=== PATIENT | female | born 1930 | race Caucasian/White ===

== ENCOUNTER 2017-02-01 19:37 | Inpatient (IN) | payer OTHER ==
[~2017-02-01] VITALS: Ht 165.1 cm; Wt 87.6 kg
[~2017-02-01 19:37] MED LIST: BIMA0.01 OPB; CALC500C70 PO; CPR/500 PO; GLIP2.5T11 PO; LOSA50TA6 PO; METF-384 PO; METO100T44 PO; PANT40TA PO; POLY335019 PO; PRD/25 PO; PRED-301 PO; PRED10TA PO; WARF5TAB7 PO
[2017-02-01] MEDS ORDERED: ONDANSETRON INJ 2 MG/ML 2 ML VIAL IV STA (19:58)
[2017-02-01] MEDS ORDERED: SODIUM CHLORIDE 0.9% 1000ML 2,000 ML IV STA (19:58)
[2017-02-01] MEDS ORDERED: OPTIRAY 320 IV PRN (20:15)
--- NOTE | 2017-02-01 20:22 | DIAGNOSTIC IMAGING REPORT ---
CHEST ONE VIEW PORTABLE CLINICAL HISTORY: fever cough COMPARISON STUDY: 05/04/2016 FINDINGS: Permanent bipolar cardiac pacemaker. Lungs are clear. Diaphragms are smooth. IMPRESSION: No acute process. Electronically signed by: Hiram Barrow M.D. 02/01/2017 8:20 PM Dictated Date/Time: 02/01/2017 8:20 PM
[2017-02-01 20:26] LABS: HEMATOCRIT 38.6 % (37-47); MEAN CELL VOLUME 88.7 fL (80-100); MEAN CORPUSCULAR HEMOGLOBIN 29.7 pg (25-34); MEAN CORPUSCULAR HGB CONC 33.4 g/dl (32-36); MEAN PLATELET VOLUME 10.8 fL (7.4-10.4); PLATELET COUNT 187 K/uL (130-400); RED BLOOD COUNT 4.35 M/uL (4.2-5.4); WHITE BLOOD COUNT 9.55 K/uL (4.8-10.8)
[2017-02-01 20:36] LABS: ISTAT CREATININE 1.1 mg/dl (0.6-1.3); ISTAT HEMOGLOBIN 13.6 g/dl (12.0-16.0); ISTAT IONIZED CALCIUM 1.08 mmol/l (1.12-1.32)
[2017-02-01 20:36] LABS: PROTHROMBIN TIME (PATIENT) 33.6 SECONDS (9.0-12.0)
--- NOTE | 2017-02-01 20:44 | DIAGNOSTIC IMAGING REPORT ---
ABDOMEN AND PELVIS CT WITH IV CONTRAST CT DOSE: 668.25 mGy.cm HISTORY: vomiting w/ abd pain fever and tachy TECHNIQUE: Multiaxial CT images of the abdomen and pelvis were performed following the use of intravenous contrast. COMPARISON STUDY: 04/08/2016 FINDINGS: Lung bases are clear. Stable postoperative changes to the right hepatic lobe as well as findings of a prior cholecystectomy. These findings are unchanged from the prior exam. Cortical scarring of the peripheral aspect of the residual right hepatic lobe. This is also unchanged. Kidneys enhance uniformly. Several microcysts are present. Small cyst of the spleen is stable. Pancreas is uniform throughout. Ventral hernias are again noted. These are unchanged in appearance. Bowel pattern overall is nonobstructive. Bladder is midline. There is no free fluid within the pelvic cul-de-sac. Scattered colonic diverticuli are present with no evidence for diverticulitis. Postoperative bowel changes are within the anterior central pelvis is stable. This is a nonobstructive finding and again is stable from the prior exam. There is no evidence for significant perirectal para-aortic abdominal pelvic or inguinal brady pathology. There are moderate degenerative changes of the hips as well as lumbar spine. IMPRESSION: Chronic and stable postoperative changes throughout the abdomen and pelvis. No acute process is identified. Electronically signed by: Hiram Barrow M.D. 02/01/2017 8:43 PM Dictated Date/Time: 02/01/2017 8:39 PM
[2017-02-01 20:47] LABS: BUN/CREATININE RATIO 14.7 (10-20); CALCIUM 9.1 mg/dl (8.5-10.1); CREATININE 1.3 mg/dl (0.60-1.20); MAGNESIUM 1.6 mg/dl (1.8-2.4)
[2017-02-01 20:49] LABS: BASO % 0.1 %; BASO ABS # 0.01 K/uL (0-0.2); COMPLETE YES; EOS % 0.5 %; IG% 0.2 %; LYMPH % 22.2 %; LYMPH ABS # 2.12 K/uL (1.2-3.4); MONO % 6.3 %; NEUT % 70.7 %
[2017-02-01] MEDS ORDERED: PIPERACILLIN/TAZOBACTAM 4.5 GM/100ML D5W IV STA (20:55)
[2017-02-01 21:11] LABS: CKMB/CK RATIO 3.5 (0-3.0)
[2017-02-01] MEDS ORDERED: CIPR1TAB10 PO (21:15)
[2017-02-01] MEDS ORDERED: TMPOPS15 OPB (21:15)
[2017-02-01] MEDS ORDERED: WARF5TAB90 PO (21:27)
[2017-02-01 21:39] LABS: URINE APPEARANCE CLEAR (CLEAR); URINE COLOR DK YELLOW; URINE EPITHELIAL CELL AUTO >30 /lpf (0-5); URINE NITRITE NEG (NEG); URINE SPECIFIC GRAVITY > 1.045 (1.000-1.030); UROBILINOGEN NEG (NEG); ZZURINE CULT IF INDIC CATH NO
[2017-02-01] MEDS ORDERED: ONDANSETRON INJ 2 MG/ML 2 ML VIAL IV PRN (21:45)
[2017-02-01 21:49] LABS: MANUAL MICROSCOPIC REQUIRED? NO; REVIEW REQ? YES; URINE BILIRUBIN NEG (NEG)
[2017-02-01 21:53] LABS: URINE PATH CASTS 1-5 GRANULAR CASTS /lpf (0)
[2017-02-01] MEDS ORDERED: GLUCOSE 10 TABS/TUBE PO PRN (22:00)
[2017-02-01] MEDS ORDERED: SODIUM CHLORIDE 0.9% 1000ML 1,000 ML IV SCH (22:00)
[2017-02-01] MEDS ORDERED: GLUCOSE 40% GEL 15 GM TUBE PO PRN (22:00)
[2017-02-01] MEDS ORDERED: GLUCAGON FOR INJ 1 MG VIAL SQ PRN (22:00)
[2017-02-01] MEDS ORDERED: DEXTROSE 50% 50 ML SYR IV PRN (22:00)
[2017-02-01] MEDS ORDERED: PIPERACILL/TAZOBAC CONSULT ACTIVE PRN (22:01)
--- NOTE | 2017-02-01 22:26 | History and Physical ---
History & Physical Date & Time of Service: February 01, 2017 ~ 21:30 Chief Complaint: Fevers, Vomiting Primary Care Physician: Brandee Forman M.D. History of Present Illness 86 year old female who presents to the ER with fever and vomiting. Patient has history of sclerosing cholangitis and recurrent cholangitis. Reports that when she develops a fever she will start a course of Cipro. Patient reports starting to get sick 4 days ago and she reports she started taking Cipro at that time. She reports typically she will improve once she starts the antibiotic however she has not. She reports fevers despite the use of Tylenol. The highest fever she had was 102. She reports chills and rigors. She reports a poor appetite and when she does eat she felt nauseous. She reports one episode of vomiting. She denies hematemesis or coffee ground emesis. She reports mild LLQ pain. No diarrhea. She reports generalized weakness. She denies cough and sputum production. No chest pain, shortness of breath, lightheadedness, dizziness, diaphoresis, or syncopal event. She denies dysuria or frequency but feels as though her urine output has been down. In the ER, patient was tachycardic in the 120s. She had a low grade fever of 37.6. POC Lactic acid 3.07. Creat 1.3 ( baseline ~ 0.9). CT abd/pelvis unremarkable. CXR clear. U/A pending. She was given IVF and Zosyn. 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 Status: Chronic (2) Chronic a-fib Status: Chronic (3) DM type 2 (diabetes mellitus, type 2) Status: Chronic (4) Hepatic fibrosis Status: Chronic (5) History of ITP Status: Chronic (6) HLD (hyperlipidemia) Status: Chronic (7) HTN (hypertension) Status: Chronic (8) Neuropathy Status: Chronic (9) Pacemaker Status: Chronic (10) Recurrent cholangitis Status: Chronic (11) Sclerosing cholangitis Status: Chronic Surgical Problems: (1) History of hysterectomy Status: Chronic (2) S/P cholecystectomy Status: Chronic Family History non contributory due to patient's advanced age Social History Smoking Status: Never Smoker Alcohol Use: none Marital Status: Housing status: lives with significant other Immunizations History of Influenza Vaccine: Yes Influenza Vaccine Date: Jul 03, 2016 History of Pneumococcal: Yes Pneumococcal Date: Oct 16, 2014 Multi-Drug Resistant Organisms History of MDRO: No Allergies Coded Allergies: Adhesives (Verified Adverse Reaction, Unknown, "it festers and gets sore" , 06/19/16) Bacitracin (Verified Adverse Reaction, Unknown, states "if I use it it won 't heal", 06/19/16) Lisinopril (Verified Adverse Reaction, Unknown, Cough, 06/19/16) Reported by PT. Neomycin (Verified Adverse Reaction, Unknown, states "if I use it it won' t heal", 06/19/16) Polymyxin B (Verified Adverse Reaction, Unknown, states "if I use it it won't heal", 06/26/16) Home Medications Scheduled Calcium/Vitamin D (Os-Andre 500 Plus D), 1 TAB PO DAILY Ciprofloxacin Hcl (Cipro), 500 MG PO BID Glipizide (Glipizide Er), 1 DOSE PO DAILY Losartan Potassium (Cozaar), 50 MG PO QAM Metformin Hcl (Glucophage), 1,000 MG PO BID Metoprolol Succ (Toprol Xl) (Toprol-Xl ), 50 MG PO QPM Pantoprazole (Protonix), 40 MG PO DAILY Polyethylene Glycol 3350 (Miralax), 17 GM PO QAM Timolol Maleate (Timolol 0.5% Oph Soln 15 Ml), 1 DROP OPB BID Warfarin Sod (Jantoven), 7.5 MG PO MWF Warfarin Sodium (Coumadin), 5 MG PO 4XWK Review of Systems ROS per HPI, all other systems reviewed and negative Physical Exam Vital Signs Date Time Temp Pulse Resp B/P Pulse Ox O2 Delivery O2 Flow Rate FiO2 02/01/17 19:40 37.6 118 22 138/69 95 Room Air General Appearance: no apparent distress Head: normocephalic Eyes: normal inspection ENT: hearing grossly normal, + pertinent finding (dry mucous membranes) Neck: supple, no JVD Respiratory/Chest: lungs clear, normal breath sounds, no respiratory distress Cardiovascular: + tachycardia (regular rhythm), + pertinent finding (+1 edema BLLE) Abdomen/GI: normal bowel sounds, soft, + tenderness (LLQ, mild) Back: no CVA tenderness Extremities/Musculoskelatal: normal inspection, no calf tenderness Neurologic/Psych: no motor/sensory deficits, alert, normal mood/affect, oriented x 3 Skin: normal color, warm/dry Diagnostics Laboratory Results Results Past 24 Hours Test 02/01/17 20:10 02/01/17 20:19 02/01/17 20:23 02/01/17 21:15 Range/Units White Blood Count 9.55 4.8-10.8 K/uL Red Blood Count 4.35 4.2-5.4 M/uL Hemoglobin 12.9 12.0-16.0 g/dL Hematocrit 38.6 37-47 % Mean Corpuscular Volume 88.7 80-100 fL Mean Corpuscular Hemoglobin 29.7 25-34 pg Mean Corpuscular Hemoglobin Concent 33.4 32-36 g/dl Platelet Count 187 130-400 K/uL Mean Platelet Volume 10.8 7.4-10.4 fL Neutrophils (%) (Auto) 70.7 % Lymphocytes (%) (Auto) 22.2 % Monocytes (%) (Auto) 6.3 % Eosinophils (%) (Auto) 0.5 % Basophils (%) (Auto) 0.1 % Neutrophils # (Auto) 6.75 1.4-6.5 K/uL Lymphocytes # (Auto) 2.12 1.2-3.4 K/uL Monocytes # (Auto) 0.60 0.11-0.59 K/uL Eosinophils # (Auto) 0.05 0-0.5 K/uL Basophils # (Auto) 0.01 0-0.2 K/uL RDW Standard Deviation 45.0 36.4-46.3 fL RDW Coefficient of Variation 13.8 11.5-14.5 % Immature Granulocyte % (Auto) 0.2 % Immature Granulocyte # (Auto) 0.02 0.00-0.02 K/uL Prothrombin Time 33.6 9.0-12.0 SECONDS Prothromb Time International Ratio 3.0 0.9-1.1 Sodium Level 137 136-145 mmol/L Potassium Level 4.0 3.5-5.1 mmol/L Chloride Level 102 98-107 mmol/L Carbon Dioxide Level 24 21-32 mmol/L Anion Gap 11.0 19.0 16-25 mmol/L Blood Urea Nitrogen 19 7-18 mg/dl Creatinine 1.30 0.60-1.20 mg/dl Est Creatinine Clear Calc Drug Dose 34.2 ml/min Estimated GFR () 43.3 Estimated GFR (Non- 37.4 BUN/Creatinine Ratio 14.7 10-20 Random Glucose 166 70-99 mg/dl Calcium Level 9.1 8.5-10.1 mg/dl Magnesium Level 1.6 1.8-2.4 mg/dl Total Bilirubin 0.6 0.2-1 mg/dl Direct Bilirubin 0.2 0-0.2 mg/dl Aspartate Amino Transf (AST/SGOT) 24 15-37 U/L Alanine Aminotransferase (ALT/SGPT) 28 12-78 U/L Alkaline Phosphatase 81 45-117 U/L Total Creatine Kinase 51 26-192 U/L Creatine Kinase MB 1.8 0.5-3.6 ng/ml Creatine Kinase MB Ratio 3.5 0-3.0 Troponin I 0.896 0-0.045 ng/ml Total Protein 7.7 6.4-8.2 gm/dl Albumin 3.5 3.4-5.0 gm/dl Bedside Lactic Acid Venous 3.07 0.90-1.70 mmol/L Bedside Hemoglobin 13.6 12.0-16.0 g/dl Bedside Hematocrit 40 37-47 % Bedside Sodium 136 135-144 mEq/L Bedside Potassium 4.0 3.3-5.0 mEq/L Bedside Chloride 100 101-112 mEq/L Bedside Total CO2 22 24-31 mEq/l Bedside Blood Urea Nitrogen 19 7-18 mg/dl Bedside Creatinine 1.1 0.6-1.3 mg/dl Bedside Glucose (other) 171 70-99 mg/dl Bedside Ionized Calcium (Jessie) 1.08 1.12-1.32 mmol/l Urine Color DK YELLOW Urine Appearance CLEAR CLEAR Urine pH 5.0 4.5-7.5 Urine Specific [place] > 1.045 1.000-1.030 Urine Protein 1+ NEG Urine Glucose (UA) NEG NEG Urine Ketones 1+ NEG Urine Occult Blood TRACE NEG Urine Nitrite NEG NEG Urine Bilirubin NEG NEG Urine Urobilinogen NEG NEG Urine Leukocyte Esterase NEG NEG Urine WBC (Auto) 1-5 0-5 /hpf Urine RBC (Auto) 0-4 0-4 /hpf Urine Hyaline Casts (Auto) 5-10 0-5 /lpf Urine Epithelial Cells (Auto) >30 0-5 /lpf Urine Bacteria (Auto) NEG NEG Urine Renal Epithelial Cells 0-5 0-5 /lpf Urine Pathogenic Casts 1-5 GRANULAR CASTS 0 /lpf Microbiology Results 02/01/17 Blood Culture, Received Pending 02/01/17 Blood Culture, Received Pending Diagnostic Radiology CXR IMPRESSION: No acute process. CT ABD/PELVIS IMPRESSION: Chronic and stable postoperative changes throughout the abdomen and pelvis. No acute process is identified. Impression Assessment and Plan PROBABLE SEPSIS - admit to tele - patient presenting with fever, nausea, vomiting, and generalized weakness; hx of recurrent cholangitis and will start taking Cipro when she develops a fever - started taking on 01/29 - on presentation - tachycardic, low grade fever, lactic acidosis (POC 3.07); BP stable - potential sources - UTI, cholangitis (however noted normal CT abd/pelvis and normal LFTs) - CT abd/pelvis in ER negative for acute findings; CXR clear; U/A does not highly suggest UTI however ? partially treated infection with Cipro - s/p Zosyn in ED, will continue with and adjust per culture results (noted urine culture from 2013 - E. Coli resistant to trimet/sulfa, ampicillin, gentamicin, tobramycin, and fluoroquinolones; intermediate to amp/sul) - IVF, follow up lactic acid - urine and blood cultures WEST - likely prerenal due to poor PO intake and GI loss from vomiting - baseline creat ~ 0.9, up to 1.3 today - IVF, hold ARB ELEVATED TROPONIN - likely demand ischemia from tachycardia - no reports of chest pain, EKG does not show any acute ST changes - continue to cycle enzymes - consider resting echo ATRIAL FIBRILLATION, HX PACEMAKER - rate uncontrolled likely due to dehydration / sepsis - continue metoprolol - on Coumadin, INR 3.0 - will hold Coumadin tonight and check INRs daily and dose Coumadin accordingly HTN - BP stable - continue metoprolol, holding losartan due to WEST DM - hgb a1c 6.5 08/2016 - hold oral agents and utilize SSI while hospitalized DVT PROPHYLAXIS - on Coumadin with therapeutic INR CODE STATUS - Patient is a full code as per my discussion with her. DISPO - In my clinical judgment this beneficiary meets acute admission criteria, established by [facility], that includes being hospitalized through two midnights. VTE Prophylaxis VTE Risk Assessment Done? Y/N: Yes Risk Level: Moderate Given or contraindicated: Warfarin (Coumadin) Note ATTENDING ADDENDUM Record reviewed. Patient interviewed and examined. Care coordinated with SUSANA Medellin. Please refer to her documentation for patient's history. Briefly, 86 YO female with history of recurrent cholangitis. Presented to ED with fever, malaise, nausea, vomiting. EXAM: General- no acute distress VS- as noted HEENT- anicteric Neck- no JVD Lungs- clear Heart- RRR, II/ systolic murmur at base Abdomen- + BS, soft, nontender Extremities- no pretibial edema or calf tenderness Neuro- alert, oriented DATA: WBC 9550. Lactate 3.07. BUN 19, creatinine 1.3. UA- pos for hyaline and granular casts, neg for nitrites, leuk esterase, bacteria Other lab studies as noted. CXR- no acute process CT abdomen + pelvis- s/p cholecystectomy, no acute process EKG performed at 19:[address] at 125 / minute, LBBB. ASSESSMENT AND PLAN: Meets SIRS criteria per 2001 definition and current CMS guidelines. Most likely source = recurrent cholangitis. Started ciprofloxacin a few days prior to admission per her routine. Tachycardic, but BP's OK. Serum lactate elevated at 3.07. Blood cultures obtained in ED. Received IV fluids. Received piperacillin / tazobactam which will be continued. Check repeat lactate. Consult GI re: suspected recurrent cholangitis. Serum troponin elevated. Total CPK and CPK-MB normal. No chest pain. EKG shows ST, LBBB. Suspect either nonspecific elevation due to sepsis or demand ischemia. Follow. INR borderline high- probably due to acute illness, decreased PO intake, antibiotics. Follow and titrate warfarin. Please refer to NATALIA Garrett's documentation for discussion of other issues. Flex Jacques MD .
--- NOTE | 2017-02-01 22:43 | EMERGENCY ROOM VISIT NOTE ---
History Report prepared by Dorina: Jenny Damian Under the Supervision of: Dr. Mayo Jones D.O. First contact with patient: 19:51 Chief Complaint: VOMITING Stated Complaint: HOT/COLD, VOMITING, COLOR OFF History of Present Illness The patient is an 86 year old female who presents to the Emergency Room with complaints of persistent vomiting starting 3 days ago. She is able to drink water, but vomits when she tries to eat food. She also reports fever since then. Her temperature has been around 102. Her fever improves with Tylenol. She had some right sided abdominal pain yesterday which resolved. She has some rhinorrhea which is not new. She denies any cough, sore throat, or dysuria. Her last bowel movement was earlier today. She had 3 bowel movements today. She denies any open wounds or sores. Her beautician told her that she appeared jaundiced. She has had a cholecystectomy. She still has her spleen and appendix. She has a history of A fib and is on Coumadin. She notes that she took antibiotics when her symptoms started. She has taken a total of 3 days worth of antibiotics. Source of History: patient Onset: 3 days ago Position: other (global) Quality: other (vomiting) Timing: other (persistent) Modifying Factors (Worsening): eating Associated Symptoms: + abdominal pain, + fevers, No cough, No sorethroat, No urinary symptoms Note: Pt reports rhinorrhea. Review of Systems See HPI for pertinent positives & negatives. A total of 10 systems reviewed and were otherwise negative. 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 Surgical Problems: (1) History of hysterectomy (2) S/P cholecystectomy Family History FH: diabetes mellitus FH: heart disease Social History Smoking Status: Never Smoker Alcohol Use: none Drug Use: none Marital Status: Housing Status: lives with family Occupation Status: retired Current/Historical Medications Scheduled Calcium/Vitamin D (Os-Andre 500 Plus D), 1 TAB PO DAILY Ciprofloxacin Hcl (Cipro), 500 MG PO BID Glipizide (Glipizide Er), 1 DOSE PO DAILY Losartan Potassium (Cozaar), 50 MG PO QAM Metformin Hcl (Glucophage), 1,000 MG PO BID Metoprolol Succ (Toprol Xl) (Toprol-Xl ), 50 MG PO QPM Pantoprazole (Protonix), 40 MG PO DAILY Polyethylene Glycol 3350 (Miralax), 17 GM PO QAM Timolol Maleate (Timolol 0.5% Oph Soln 15 Ml), 1 DROP OPB BID Warfarin Sod (Jantoven), 7.5 MG PO MWF Warfarin Sodium (Coumadin), 5 MG PO 4XWK Allergies Coded Allergies: Adhesives (Verified Adverse Reaction, Unknown, "it festers and gets sore" , 06/19/16) Bacitracin (Verified Adverse Reaction, Unknown, states "if I use it it won 't heal", 06/19/16) Lisinopril (Verified Adverse Reaction, Unknown, Cough, 06/19/16) Reported by PT. Neomycin (Verified Adverse Reaction, Unknown, states "if I use it it won' t heal", 06/19/16) Polymyxin B (Verified Adverse Reaction, Unknown, states "if I use it it won't heal", 06/26/16) Physical Exam Vital Signs Date Time Temp Pulse Resp B/P Pulse Ox O2 Delivery O2 Flow Rate FiO2 02/01/17 19:40 37.6 118 22 138/69 95 Room Air Physical Exam GENERAL: sitting up in bed, disheveled, no acute distress EYE EXAM: normal conjunctiva OROPHARYNX: no exudate, no erythema, lips, buccal mucosa, and tongue normal and mucous membranes are moist NECK: supple, no nuchal rigidity, no adenopathy, non-tender CHEST: pacemaker located in the left chest wall LUNGS: Clear to auscultation. Normal chest wall mechanics HEART: tachycardic, systolic ejection murmur ABDOMEN: abdomen soft, non-tender, normo-active bowel sounds, no masses, no rebound or guarding. BACK: Back is symmetrical on inspection and there is no deformity, no midline tenderness, no CVA tenderness. SKIN: petechiae located on the abdomen UPPER EXTREMITIES: upper extremities are grossly normal. LOWER EXTREMITIES: No pitting edema. NEURO EXAM: Normal sensorium, cranial nerves II-XII grossly intact, normal speech, no gross weakness of arms, no gross weakness of legs. Medical Decision & Procedures ER Provider Diagnostic Interpretation: Xray results as stated below per my and the radiologist's interpretation. Radiology results as stated below per my review and the radiologist's interpretation: CHEST ONE VIEW PORTABLE CLINICAL HISTORY: fever cough COMPARISON STUDY: 05/04/2016 FINDINGS: Permanent bipolar cardiac pacemaker. Lungs are clear. Diaphragms are smooth. IMPRESSION: No acute process. Electronically signed by: Hiram Barrow M.D. 02/01/2017 8:20 PM Dictated Date/Time: 02/01/2017 8:20 PM ABDOMEN AND PELVIS CT WITH IV CONTRAST CT DOSE: 668.25 mGy.cm HISTORY: vomiting w/ abd pain fever and tachy TECHNIQUE: Multiaxial CT images of the abdomen and pelvis were performed following the use of intravenous contrast. COMPARISON STUDY: 04/08/2016 FINDINGS: Lung bases are clear. Stable postoperative changes to the right hepatic lobe as well as findings of a prior cholecystectomy. These findings are unchanged from the prior exam. Cortical scarring of the peripheral aspect of the residual right hepatic lobe. This is also unchanged. Kidneys enhance uniformly. Several microcysts are present. Small cyst of the spleen is stable. Pancreas is uniform throughout. Ventral hernias are again noted. These are unchanged in appearance. Bowel pattern overall is nonobstructive. Bladder is midline. There is no free fluid within the pelvic cul-de-sac. Scattered colonic diverticuli are present with no evidence for diverticulitis. Postoperative bowel changes are within the anterior central pelvis is stable. This is a nonobstructive finding and again is stable from the prior exam. There is no evidence for significant perirectal para-aortic abdominal pelvic or inguinal brady pathology. There are moderate degenerative changes of the hips as well as lumbar spine. IMPRESSION: Chronic and stable postoperative changes throughout the abdomen and pelvis. No acute process is identified. Electronically signed by: Hiram Barrow M.D. 02/01/2017 8:43 PM Dictated Date/Time: 02/01/2017 8:39 PM Laboratory Results 02/01/17 20:10 Red Blood Count 4.35, Mean Corpuscular Volume 88.7, Mean Corpuscular Hemoglobin 29.7, Mean Corpuscular Hemoglobin Concent 33.4, Mean Platelet Volume 10.8, Neutrophils (%) (Auto) 70.7, Lymphocytes (%) (Auto) 22.2, Monocytes (%) (Auto) 6.3, Eosinophils (%) (Auto) 0.5, Basophils (%) (Auto) 0.1, Neutrophils # (Auto) 6.75, Lymphocytes # (Auto) 2.12, Monocytes # (Auto) 0.60, Eosinophils # (Auto) 0.05, Basophils # (Auto) 0.01 02/01/17 20:10 Test 02/01/17 20:10 02/01/17 20:19 02/01/17 20:23 02/01/17 21:15 White Blood Count 9.55 K/uL (4.8-10.8) Red Blood Count 4.35 M/uL (4.2-5.4) Hemoglobin 12.9 g/dL (12.0-16.0) Hematocrit 38.6 % (37-47) Mean Corpuscular Volume 88.7 fL (80-100) Mean Corpuscular Hemoglobin 29.7 pg (25-34) Mean Corpuscular Hemoglobin Concent 33.4 g/dl (32-36) Platelet Count 187 K/uL (130-400) Mean Platelet Volume 10.8 fL (7.4-10.4) Neutrophils (%) (Auto) 70.7 % Lymphocytes (%) (Auto) 22.2 % Monocytes (%) (Auto) 6.3 % Eosinophils (%) (Auto) 0.5 % Basophils (%) (Auto) 0.1 % Neutrophils # (Auto) 6.75 K/uL (1.4-6.5) Lymphocytes # (Auto) 2.12 K/uL (1.2-3.4) Monocytes # (Auto) 0.60 K/uL (0.11-0.59) Eosinophils # (Auto) 0.05 K/uL (0-0.5) Basophils # (Auto) 0.01 K/uL (0-0.2) RDW Standard Deviation 45.0 fL (36.4-46.3) RDW Coefficient of Variation 13.8 % (11.5-14.5) Immature Granulocyte % (Auto) 0.2 % Immature Granulocyte # (Auto) 0.02 K/uL (0.00-0.02) Prothrombin Time 33.6 SECONDS (9.0-12.0) Prothromb Time International Ratio 3.0 (0.9-1.1) Est Creatinine Clear Calc Drug Dose 34.2 ml/min Estimated GFR () 43.3 Estimated GFR (Non- 37.4 BUN/Creatinine Ratio 14.7 (10-20) Calcium Level 9.1 mg/dl (8.5-10.1) Magnesium Level 1.6 mg/dl (1.8-2.4) Total Bilirubin 0.6 mg/dl (0.2-1) Direct Bilirubin 0.2 mg/dl (0-0.2) Aspartate Amino Transf (AST/SGOT) 24 U/L (15-37) Alanine Aminotransferase (ALT/SGPT) 28 U/L (12-78) Alkaline Phosphatase 81 U/L (45-117) Total Creatine Kinase 51 U/L (26-192) Creatine Kinase MB 1.8 ng/ml (0.5-3.6) Creatine Kinase MB Ratio 3.5 (0-3.0) Troponin I 0.896 ng/ml (0-0.045) Total Protein 7.7 gm/dl (6.4-8.2) Albumin 3.5 gm/dl (3.4-5.0) Bedside Lactic Acid Venous 3.07 mmol/L (0.90-1.70) Bedside Hemoglobin 13.6 g/dl (12.0-16.0) Bedside Hematocrit 40 % (37-47) Bedside Sodium 136 mEq/L (135-144) Bedside Potassium 4.0 mEq/L (3.3-5.0) Bedside Chloride 100 mEq/L (101-112) Bedside Total CO2 22 mEq/l (24-31) Anion Gap 19.0 mmol/L (16-25) Bedside Blood Urea Nitrogen 19 mg/dl (7-18) Bedside Creatinine 1.1 mg/dl (0.6-1.3) Bedside Glucose (other) 171 mg/dl (70-99) Bedside Ionized Calcium (Jessie) 1.08 mmol/l (1.12-1.32) Urine Color DK YELLOW Urine Appearance CLEAR (CLEAR) Urine pH 5.0 (4.5-7.5) Urine Specific [place] > 1.045 (1.000-1.030) Urine Protein 1+ (NEG) Urine Glucose (UA) NEG (NEG) Urine Ketones 1+ (NEG) Urine Occult Blood TRACE (NEG) Urine Nitrite NEG (NEG) Urine Bilirubin NEG (NEG) Urine Urobilinogen NEG (NEG) Urine Leukocyte Esterase NEG (NEG) Urine WBC (Auto) 1-5 /hpf (0-5) Urine RBC (Auto) 0-4 /hpf (0-4) Urine Hyaline Casts (Auto) 5-10 /lpf (0-5) Urine Epithelial Cells (Auto) >30 /lpf (0-5) Urine Bacteria (Auto) NEG (NEG) Urine Renal Epithelial Cells 0-5 /lpf (0-5) Urine Pathogenic Casts 1-5 GRANULAR CASTS /lpf (0) Laboratory results per my review. Medications Administered Medications (Trade) Dose Ordered Sig/Anjana Route Start Time Stop Time Status Last Admin Dose Admin Ondansetron HCl 4 mg 4 mg NOW STAT IV 02/01/17 19:58 02/01/17 20:00 DC 02/01/17 20:48 4 MG Sodium Chloride (Nss 1000ml) 2,000 ml @ 999 mls/hr Q2H1M STAT IV 02/01/17 19:58 02/01/17 21:58 DC 02/01/17 20:47 999 MLS/HR Piperacillin Sod/ Tazobactam Sod (Zosyn Iv) 4.5 gm NOW STAT IV 02/01/17 20:55 02/01/17 20:56 DC 02/01/17 20:55 4.5 GM ECG Indication: vomiting Rate (beats per minute): 125 Rhythm: sinus tachycardia Findings: LBBB, other (normal axis) Comparison ECG Date: 04-May-2016 Change: There is now a normal axis and is not paced. ED Course ED COURSE: Vital signs were reviewed and showed tachycardia. The patients medical record was reviewed The above diagnostic studies were performed and reviewed. ED treatments and interventions as stated above. 1954: The patient was evaluated in room B11B. A complete history and physical examination was performed. 1957: NSS 2000 ml @ 999 mls/hr IV, Zofran Inj 4 mg IV. 2054: Zosyn Iv 4.5 gm IV. 2106: I reviewed the patient's case with Dr. Huang, [facility] hospitalist. He will evaluate the patient for further management. 2107: Upon reevaluation, the patient is resting comfortably.I discussed my findings with the patient and she understands and agrees with the treatment plan. Based on the patients age, coexisting illnesses, exam and lab findings the decision to treat as an inpatient was made. The patient remained stable while under my care. The patient will be evaluated for further management. Medical Decision Differential diagnoses includes but is not limited to gastritis, peptic ulcer disease, GERD, gallbladder disease, pancreatitis, small bowel obstruction, acute coronary syndrome, pericarditis, ischemic bowel, irritable bowel disease, irritable bowel syndrome, appendicitis, diverticulitis, malignancy, hernia, urinary tract infection, torsion, perforation, trauma, infectious. Patient is an 86-year-old female who presents the ER febrile and tachycardic with a heart rate in the 130s. Patient has been taking antibiotics for the past 3 days. Labs were obtained and show no significant leukocytosis or anemia. BMP along with LFTs and bilirubin were normal. Magnesium was slightly low at 1.6. Troponin was elevated at 0.89. Lactic acid was elevated at 3. Her only complaints upon presentation is fevers and weakness. UA was negative. Chest x-ray was unremarkable. INR was therapeutic at 3. CT of the abdomen and pelvis shows no acute pathology. I do question whether the patient has a partially treated infection at this time. I did give her a dose of Zosyn. I do favor the elevated troponin is likely rate dependent and demand ischemia. I updated the family in regards these findings. Patient was given 2 L normal saline. Patient was admitted to internal medicine with SIRS, lactic acidosis and demand ischemia. Consults Time Called: 2102 Consulting Physician: Dr. Huang [facility] hospitalist Returned Call: 2106 I reviewed the patient's case with him. He will evaluate the patient for further management. Impression Primary Impression: SIRS (systemic inflammatory response syndrome) Additional Impressions: Tachycardia Lactic acidosis Elevated troponin Scribe Attestation The scribe's documentation has been prepared under my direction and personally reviewed by me in its entirety. I confirm that the note above accurately reflects all work, treatment, procedures, and medical decision making performed by me. Departure Information Dispostion Being Evaluated By Hospitalist Referrals Brandee Forman M.D. (PCP) Patient Instructions My [facility] Problem Qualifiers
[2017-02-01 23:00] VITALS: BP 137/70; PULSE 116; TEMP 38.3; O2SAT 93; BMI 31.4
[2017-02-01] MEDS: ACETAMINOPHEN 325 MG TAB PO PRN (23:41)
[2017-02-02] VITALS (16 sets, daily range): BP systolic 93–140; BP diastolic 48–94; PULSE 77–151; TEMP 36.6–38.5; O2SAT 92–99; Ht 165.1 cm; Wt 87.6 kg
[2017-02-02] MEDS: PIPERACILL/TAZOBAC IV 3.375 GM in DEXTROSE 5% 100ML IV SCH ×3 (02:00→16:26)
[2017-02-02] MEDS: ACETAMINOPHEN 325 MG TAB PO PRN ×2 (03:51→19:17)
[2017-02-02] MEDS ORDERED: DAPTOmycin IV 0 MG in SODIUM CHLORIDE 0.9% 50ML 50 ML IV STA (04:00)
[2017-02-02] MEDS ORDERED: SODIUM CHLORIDE 0.9% 1000ML 1,000 ML IV SCH (04:15)
[2017-02-02 04:51] LABS: INR 2.7 (0.9-1.1); PROTHROMBIN TIME (PATIENT) 30.4 SECONDS (9.0-12.0)
[2017-02-02 04:54] LABS: HEMATOCRIT 33.9 % (37-47); MEAN CELL VOLUME 88.3 fL (80-100); MEAN CORPUSCULAR HEMOGLOBIN 29.9 pg (25-34); MEAN CORPUSCULAR HGB CONC 33.9 g/dl (32-36); MEAN PLATELET VOLUME 10.5 fL (7.4-10.4); PLATELET COUNT 125 K/uL (130-400); RED BLOOD COUNT 3.84 M/uL (4.2-5.4); WHITE BLOOD COUNT 3.81 K/uL (4.8-10.8)
[2017-02-02] MEDS ORDERED: DAPTOmycin IV 500 MG in SODIUM CHLORIDE 0.9% 50ML 50 ML IV SCH (05:00)
[2017-02-02 05:07] LABS: BUN/CREATININE RATIO 16.3 (10-20); CALCIUM 7.9 mg/dl (8.5-10.1); CREATININE 0.99 mg/dl (0.60-1.20); POTASSIUM 3.5 mmol/L (3.5-5.1)
[2017-02-02 05:14] LABS: ALB/GLOB RATIO 0.8 (0.9-2)
[2017-02-02 06:10] LABS: ESTIMATED AVERAGE GLUCOSE 120 mg/dl; HA1C FLAG Normal (Normal)
[2017-02-02] MEDS: LACTATED RINGER'S 1000ML 1,000 ML IV SCH ×2 (06:42→16:26)
[2017-02-02] MEDS: INSULIN ASPART 100 UNITS/ML 3 ML PEN SC SCH ×4 (07:00→20:15)
[2017-02-02] MEDS: CALCIUM 600MG + VIT D 400 IU TAB PO SCH (08:03)
[2017-02-02] MEDS: PANTOprazole SOD 40 MG TAB PO SCH (08:03)
[2017-02-02] MEDS: POLYETHYLENE (MIRALAX) 17 GM PACK PO SCH (08:04)
[2017-02-02] MEDS: TIMOLOL MALEATE 0.5% OP SOLN 5 ML BTL OPB SCH ×2 (08:04→20:13)
--- NOTE | 2017-02-02 09:00 | Gastrointestinal Consultation ---
Gastrointestinal Consultation Date of Consultation: February 02, 2017 Attending Physician: Lissy Consulting Physician: Peyton Reason for Consultation: sepsis, ?cholangitis History of Present Illness Patient is a 86 year old female w/ PMH significant for afib, T2DM w/ neuropathy , HTN, ITP, CBD mass (resected in 2012) and others listed below who presents through the ED for evaluation of fever, generalized fatigue and weakness that started on Wednesday. She had a prescription of BID cipro at home which she was instructed to begin with any onset of fever due to her chronic cholangitis. She is known to our practice since 2012 where work up for jaundice and elevated LFTs found a mass on CBD. this was resected and thought to be secondary to chronic cholangitis as biopsies were inflammatory. Histology is somewhat suggestive of sclerosing cholangitis however, liver enzymes appear to be persistently within normal limits. She took cipro twice daily Wednesday, Wednesday, Wednesday and once Wednesday before coming to the ED. Currently, she is still experiencing hot flashes, chills, fatigue and weakness. She does not have any abdominal pain, specifically she does not have any RUQ pain. Of note, she has never had RUQ pain with previous episodes of cholangitis. Denies chest pain, SOB, abdominal pain, black/bloody stools, diarrhea or constipation. She uses Miralax as an outpatient to aid i passing 2-3 soft stools daily. Labs on admission were without a white count or any LFT elevation. There is troponin elevation of 0.9. She is tachycardic CT abd 02/01/17: Chronic and stable postoperative changes throughout the abdomen and pelvis. No nacute process is identified. Chest XR 02/01/17: Permanent bipolar cardiac pacemaker. Lungs are clear. Diaphragms are smooth. EGD 06/26/16: Normal upper third of esophagus, middle third of esophagus and lower third of esophagus. Z-line regular, 35 cm from the incisors. Biopsied. Gastritis. Biopsied. Normal examined duodenum EGD 01/01/15: Normal esophagus. Z-line regular, 37 cm from the incisors. Normal cardia, gastric fundus and gastric body. Gastritis. Biopsied. Normal duodenal bulb and 2nd part of the duodenum.Biopsied. ERCP 03/30/13: The left and right hepatic ducts and all intrahepatic branches were dilated. 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 The stricture did not appear to extend to the bifurcation. Cytology obtained Biliary stent placed. Prophylactic pancreatic stent placed Past Medical/Surgical History Medical Problems: (1) Elevated troponin Status: Acute (2) Lactic acidosis Status: Acute (3) Precordial chest pain Status: Acute (4) SIRS (systemic inflammatory response syndrome) Status: Acute (5) Tachycardia Status: Acute Past Medical History: afib, T2DM w/ neuropathy, HTN, ITP, CBD mass, elevated LFTs Past Surgical History: Total hysterectomy, Laparoscopic cholecystectomy, Excision of bile duct tumor by Dr. Francis in [place], most recent colonoscopy 2008, diverticulosis, internal hemorrhoids, EGD/EUS 10/11/[address] 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 Trans gastric liver bx during EUS 10/11/2013 : non specific portal chronic inflammation. Family History FH: diabetes mellitus FH: heart disease Social History Smoking Status: Never Smoker Alcohol Use: none Drug Use: none Marital Status: Housing Status: lives with family Occupation Status: retired Allergies Coded Allergies: Adhesives (Verified Adverse Reaction, Unknown, "it festers and gets sore" , 06/19/16) Bacitracin (Verified Adverse Reaction, Unknown, states "if I use it it won 't heal", 06/19/16) Lisinopril (Verified Adverse Reaction, Unknown, Cough, 06/19/16) Reported by PT. Neomycin (Verified Adverse Reaction, Unknown, states "if I use it it won' t heal", 06/19/16) Polymyxin B (Verified Adverse Reaction, Unknown, states "if I use it it won't heal", 06/26/16) Current Medications Home Meds and Scripts Medications Dose Route/Sig Max Daily Dose Days Date Category Dose Instructions Coumadin (Warfarin Sodium) 5 Mg Tab 5 Mg PO 4XWK 02/01/17 Reported TAKE SUN, TULITZY, THGRACE, SAT Timolol 0.5% Oph Soln 15 Ml (Timolol Maleate) 15 Ml Soln 1 Drop OPB BID 02/01/17 Reported Cipro (Ciprofloxacin Hcl) 500 Mg Tab 500 Mg PO BID 02/01/17 Reported Protonix (Pantoprazole Sodium) 40 Mg Tab 40 Mg PO DAILY 06/26/16 Reported Miralax (Polyethylene Glycol 3350) 1 Pow Pow 17 Gm PO QAM 06/19/16 Reported Toprol-Xl (Metoprolol Succinate) 100 Mg Tabcr 50 Mg PO QPM 06/19/16 Reported Cozaar (Losartan Potassium) 50 Mg Tab 50 Mg PO QAM 06/19/16 Reported Glipizide Er (Glipizide) 2.5 Mg Tab 1 Dose PO DAILY 90 06/19/16 Reported Os-Andre 500 Plus D (Calcium/Vitamin D) Tab 1 Tab PO DAILY 06/19/16 Reported Jantoven (Warfarin Sodium) 5 Mg Tab 7.5 Mg PO MWF 06/19/16 Reported Glucophage (Metformin Hcl) 1,000 Mg Tab 1,000 Mg PO BID 06/19/16 Reported Review of Systems Constitutional: + chills, + fatigue, + weakness Respiratory: No cough, No shortness of breath Cardiac: No chest pain, No edema Abdomen: No GI bleeding, No constipation, No diarrhea, No nausea, No pain, No vomiting Physical Exam Date Time Temp Pulse Resp B/P Pulse Ox O2 Delivery O2 Flow Rate FiO2 02/02/17 08:24 109 116/71 02/02/17 07:20 37.4 118 16 93/48 92 Room Air 02/02/17 05:21 120 132/75 02/02/17 04:54 112 18 131/70 02/02/17 04:30 118 22 110/54 95 Nasal Cannula 2.0 02/02/17 04:06 140/80 02/02/17 04:00 Room Air 02/02/17 03:59 37.5 135 28 99 Nasal Cannula 2.0 02/02/17 03:55 148 30 95 Nasal Cannula 2.0 02/02/17 03:52 38.0 151 28 136/94 94 Nasal Cannula 2.0 02/02/17 03:10 36.6 77 20 110/61 96 Room Air 02/02/17 01:03 37.3 02/01/17 23:59 Room Air 02/01/17 23:00 38.3 116 20 137/70 93 Room Air 02/01/17 22:43 37.6 118 22 138/69 95 02/01/17 19:40 37.6 118 22 138/69 95 Room Air General Appearance: no apparent distress Eyes: PERRL ENT: hearing grossly normal Neck: supple Respiratory/Chest: lungs clear, normal breath sounds Cardiovascular: + tachycardia, + pertinent finding (Normal S1 S2) Abdomen: normal bowel sounds, non tender, soft, no organomegaly, no pulsatile mass Neurologic/Psych: alert, normal mood/affect, oriented x 3 Skin: normal color Laboratory Results Last 24 Hours Test 02/01/17 20:10 02/01/17 20:19 02/01/17 20:23 02/01/17 21:15 White Blood Count 9.55 K/uL Red Blood Count 4.35 M/uL Hemoglobin 12.9 g/dL Hematocrit 38.6 % Mean Corpuscular Volume 88.7 fL Mean Corpuscular Hemoglobin 29.7 pg Mean Corpuscular Hemoglobin Concent 33.4 g/dl Platelet Count 187 K/uL Mean Platelet Volume 10.8 fL Neutrophils (%) (Auto) 70.7 % Lymphocytes (%) (Auto) 22.2 % Monocytes (%) (Auto) 6.3 % Eosinophils (%) (Auto) 0.5 % Basophils (%) (Auto) 0.1 % Neutrophils # (Auto) 6.75 K/uL Lymphocytes # (Auto) 2.12 K/uL Monocytes # (Auto) 0.60 K/uL Eosinophils # (Auto) 0.05 K/uL Basophils # (Auto) 0.01 K/uL RDW Standard Deviation 45.0 fL RDW Coefficient of Variation 13.8 % Immature Granulocyte % (Auto) 0.2 % Immature Granulocyte # (Auto) 0.02 K/uL Prothrombin Time 33.6 SECONDS Prothromb Time International Ratio 3.0 Sodium Level 137 mmol/L Potassium Level 4.0 mmol/L Chloride Level 102 mmol/L Carbon Dioxide Level 24 mmol/L Anion Gap 11.0 mmol/L 19.0 mmol/L Blood Urea Nitrogen 19 mg/dl Creatinine 1.30 mg/dl Est Creatinine Clear Calc Drug Dose 34.2 ml/min Estimated GFR () 43.3 Estimated GFR (Non- 37.4 BUN/Creatinine Ratio 14.7 Random Glucose 166 mg/dl Calcium Level 9.1 mg/dl Magnesium Level 1.6 mg/dl Total Bilirubin 0.6 mg/dl Direct Bilirubin 0.2 mg/dl Aspartate Amino Transf (AST/SGOT) 24 U/L Alanine Aminotransferase (ALT/SGPT) 28 U/L Alkaline Phosphatase 81 U/L Total Creatine Kinase 51 U/L Creatine Kinase MB 1.8 ng/ml Creatine Kinase MB Ratio 3.5 Troponin I 0.896 ng/ml Total Protein 7.7 gm/dl Albumin 3.5 gm/dl Bedside Lactic Acid Venous 3.07 mmol/L Bedside Hemoglobin 13.6 g/dl Bedside Hematocrit 40 % Bedside Sodium 136 mEq/L Bedside Potassium 4.0 mEq/L Bedside Chloride 100 mEq/L Bedside Total CO2 22 mEq/l Bedside Blood Urea Nitrogen 19 mg/dl Bedside Creatinine 1.1 mg/dl Bedside Glucose (other) 171 mg/dl Bedside Ionized Calcium (Jessie) 1.08 mmol/l Urine Color DK YELLOW Urine Appearance CLEAR Urine pH 5.0 Urine Specific [place] > 1.045 Urine Protein 1+ Urine Glucose (UA) NEG Urine Ketones 1+ Urine Occult Blood TRACE Urine Nitrite NEG Urine Bilirubin NEG Urine Urobilinogen NEG Urine Leukocyte Esterase NEG Urine WBC (Auto) 1-5 /hpf Urine RBC (Auto) 0-4 /hpf Urine Hyaline Casts (Auto) 5-10 /lpf Urine Epithelial Cells (Auto) >30 /lpf Urine Bacteria (Auto) NEG Urine Renal Epithelial Cells 0-5 /lpf Urine Pathogenic Casts 1-5 GRANULAR CASTS /lpf Test 02/02/17 01:00 02/02/17 03:53 02/02/17 04:28 02/02/17 04:30 Lactic Acid Level 1.2 mmol/L 2.2 mmol/L Creatine Kinase MB 1.7 ng/ml 2.4 ng/ml Creatine Kinase MB Ratio 4.0 Troponin I 0.976 ng/ml 0.805 ng/ml Bedside Glucose 123 mg/dl White Blood Count 3.81 K/uL Red Blood Count 3.84 M/uL Hemoglobin 11.5 g/dL Hematocrit 33.9 % Mean Corpuscular Volume 88.3 fL Mean Corpuscular Hemoglobin 29.9 pg Mean Corpuscular Hemoglobin Concent 33.9 g/dl RDW Standard Deviation 44.7 fL RDW Coefficient of Variation 13.9 % Platelet Count 125 K/uL Mean Platelet Volume 10.5 fL Prothrombin Time 30.4 SECONDS Prothromb Time International Ratio 2.7 Sodium Level 142 mmol/L Potassium Level 3.5 mmol/L Chloride Level 108 mmol/L Carbon Dioxide Level 22 mmol/L Anion Gap 12.0 mmol/L Blood Urea Nitrogen 16 mg/dl Creatinine 0.99 mg/dl Est Creatinine Clear Calc Drug Dose 44.9 ml/min Estimated GFR () 60.2 Estimated GFR (Non- 52.0 BUN/Creatinine Ratio 16.3 Random Glucose 153 mg/dl Estimated Average Glucose 120 mg/dl Hemoglobin A1c 5.8 % Calcium Level 7.9 mg/dl Total Bilirubin 0.8 mg/dl Aspartate Amino Transf (AST/SGOT) 20 U/L Alanine Aminotransferase (ALT/SGPT) 22 U/L Alkaline Phosphatase 71 U/L Total Creatine Kinase 60 U/L Total Protein 6.5 gm/dl Albumin 2.8 gm/dl Globulin 3.7 gm/dl Albumin/Globulin Ratio 0.8 Procalcitonin 1.81 ng/ml Test 02/02/17 06:21 Bedside Glucose 136 mg/dl Impression Patient is a 86 year old female with suspected sepsis of unknown origin - likely secondary to cholangitis partially treated with 3 days of BID cipro, UTI is also a differential. Plan IVF for hydration Cholangitis coverage with Zosyn Daily LFTs while admitted RUQ US today to assess biliary dilation MRCP if any abnormal LFTs or ERCP if any RUQ abdominal pain GI ok for diet as tolerated GI to follow - please call with any questions or concerns. Attg addendum: I interviewed and examine pt, reviewed chart and labs. Pt with recurrent cholangtiis, now admit with symptoms of cholangitis. Febrile but normotensive on admit, LFT's WNL. Now on broad spectrum with marked improvement. Cont empiric 7 d course of abx.
--- NOTE | 2017-02-02 09:58 | Medical Consult ---
Consultation Date of Consultation: February 02, 2017. Attending Physician: Ryland Yuan MD Reason for Consultation: Probable sepsis, suspected cholangitis History of Present Illness 86-year-old female known to me from previous infectious disease consultations, with history of type 2 diabetes mellitus and hypertension, has a history sclerosing cholangitis diagnosed in 2012, with multiple episodes sepsis related to recurrent cholangitis. She had been taking ciprofloxacin with episodes of fever, and several days prior to admission developed recurrent fever, shaking chills, with nausea and vomiting, for which she again started on ciprofloxacin. After 3 days, symptoms persisted and she was admitted to the hospital for further management. She was started empirically on daptomycin and Zosyn. Blood cultures are now reported positive for gram-negative bacilli. Patient feeling somewhat better since admission, still weak and fatigued, but no further chills or fever. Has had mild right upper quadrant pain associated with this episode. No symptoms of urinary tract infection, and urinalysis is benign. CT scan of the abdomen, read by me, shows no obvious infection. 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 (2) Chronic a-fib (3) DM type 2 (diabetes mellitus, type 2) (4) Hepatic fibrosis (5) History of ITP (6) HLD (hyperlipidemia) (7) HTN (hypertension) (8) Neuropathy (9) Pacemaker (10) Recurrent cholangitis (11) Sclerosing cholangitis Surgical Problems: (1) History of hysterectomy (2) S/P cholecystectomy Family History FH: diabetes mellitus FH: heart disease Social History Smoking Status: Never Smoker Alcohol Use: none Drug Use: none Marital Status: Housing Status: lives with family Occupation Status: retired Allergies Coded Allergies: Adhesives (Verified Adverse Reaction, Unknown, "it festers and gets sore" , 06/19/16) Bacitracin (Verified Adverse Reaction, Unknown, states "if I use it it won 't heal", 06/19/16) Lisinopril (Verified Adverse Reaction, Unknown, Cough, 06/19/16) Reported by PT. Neomycin (Verified Adverse Reaction, Unknown, states "if I use it it won' t heal", 06/19/16) Polymyxin B (Verified Adverse Reaction, Unknown, states "if I use it it won't heal", 06/26/16) Current Inpatient Medications Current Inpatient Medications Medications (Trade) Dose Ordered Sig/Anjana Route Start Time Stop Time Status Last Admin Dose Admin Ioversol (Optiray 320) 100 ml UD PRN IV 02/01/17 20:15 02/05/17 20:14 Acetaminophen (Tylenol Tab) 650 mg Q4H PRN PO 02/01/17 21:45 03/03/17 21:44 02/02/17 03:51 650 MG Ondansetron HCl (Zofran Inj) 4 mg Q6H PRN IV 02/01/17 21:45 03/03/17 21:44 Piperacillin Sod/ Tazobactam Sod (Consult) 1 ea UD PRN N/A 02/01/17 22:01 03/03/17 22:00 Insulin Aspart (novoLOG ASPART) SLIDING SCALE If C... ACHS SC 02/02/17 07:00 03/04/17 06:59 Glucose (Glucose 40% Gel) 15-30 GRAMS 15 GRAMS... UD PRN PO 02/01/17 22:00 03/03/17 21:59 Glucose (Glucose Chew Tab) 4-8 Tablets 4 Tabl... UD PRN PO 02/01/17 22:00 03/03/17 21:59 Dextrose (Dextrose 50% 50ML Syringe) 25-50ML OF 50% DW IV FOR... UD PRN IV 02/01/17 22:00 03/03/17 21:59 Glucagon (Glucagon Inj) 1 mg UD PRN SQ 02/01/17 22:00 03/03/17 21:59 Calcium/Vitamin D (Caltrate Plus Tab) 1 tab DAILY PO 02/02/17 09:00 03/04/17 08:59 02/02/17 08:03 1 TAB Metoprolol Succinate (Toprol Xl Tab) 50 mg QPM PO 02/02/17 21:00 03/04/17 20:59 Pantoprazole Sodium (Protonix Tab) 40 mg DAILY PO 02/02/17 09:00 03/04/17 08:59 02/02/17 08:03 40 MG Timolol Maleate (Timoptic 0.5% Oph Soln) 1 drops BID OPB 02/02/17 09:00 03/04/17 08:59 02/02/17 08:04 1 DROPS Polyethylene 17 gm 17 gm QAM PO 02/02/17 09:00 03/04/17 08:59 02/02/17 08:04 17 GM Piperacillin Sod/ Tazobactam Sod 3.375 gm/Dextrose 115 ml @ 28.75 mls/ hr Q8H IV 02/02/17 02:00 02/12/17 01:59 02/02/17 02:00 28.75 MLS/HR Daptomycin 500 mg/ Sodium Chloride 60 ml @ 100 mls/hr Q24H IV 02/02/17 05:00 02/12/17 04:59 02/02/17 05:23 100 MLS/HR Lactated Ringer's (Lr 1000ml) 1,000 ml @ 100 mls/hr Q10H IV 02/02/17 05:15 03/04/17 05:14 02/02/17 06:42 100 MLS/HR Review of Systems Constitutional: + chills, + fever, + sweats, + weakness Eyes: No problem reported ENT: No problem reported Respiratory: No problem reported Cardiovascular: No problem reported Abdomen: + nausea, + pain, + vomiting, No GI bleeding, No diarrhea Musculoskeletal: No problem reported Genitourinary - Female: No problem reported Neurologic: No problem reported Psychiatric: No problem reported Endocrine: No problem reported Hematologic / Lymphatic: No problem reported Integumentary: No problem reported Allergic / Immunologic: No problem reported Physical Exam Date Time Temp Pulse Resp B/P Pulse Ox O2 Delivery O2 Flow Rate FiO2 02/02/17 08:24 109 116/71 02/02/17 07:30 Room Air 2.0 02/02/17 07:20 37.4 118 16 93/48 92 Room Air 02/02/17 05:21 120 132/75 02/02/17 04:54 112 18 131/70 02/02/17 04:30 118 22 110/54 95 Nasal Cannula 2.0 02/02/17 04:06 140/80 02/02/17 04:00 Room Air 02/02/17 03:59 37.5 135 28 99 Nasal Cannula 2.0 02/02/17 03:55 148 30 95 Nasal Cannula 2.0 02/02/17 03:52 38.0 151 28 136/94 94 Nasal Cannula 2.0 02/02/17 03:10 36.6 77 20 110/61 96 Room Air 02/02/17 01:03 37.3 02/01/17 23:59 Room Air 02/01/17 23:00 38.3 116 20 137/70 93 Room Air 02/01/17 22:43 37.6 118 22 138/69 95 02/01/17 19:40 37.6 118 22 138/69 95 Room Air General Appearance: WD/WN, no apparent distress Head: normocephalic, atraumatic Eyes: normal inspection, EOMI, sclerae normal ENT: normal ENT inspection, pharynx normal Neck: supple, no adenopathy, thyroid normal, trachea midline Respiratory/Chest: chest non-tender, lungs clear, normal breath sounds, no respiratory distress Cardiovascular: regular rate, rhythm, no gallop, no murmur Abdomen/GI: normal bowel sounds, non tender, soft, no organomegaly Back: normal inspection, no CVA tenderness Extremities/Musculoskelatal: no calf tenderness, non-tender Neurologic/Psych: alert, normal mood/affect, oriented x 3 Skin: normal color, warm/dry, no rash Lymphatic: no adenopathy Laboratory Results Date/Time Source Procedure Growth Status 02/02/17 04:30 Blood Blood Culture Pending Received 02/02/17 04:25 Blood Blood Culture Pending Received 02/01/17 20:45 Blood Blood Culture - Preliminary Gram Negative Bacilli Resulted 02/01/17 20:10 Blood Blood Culture - Preliminary Gram Negative Bacilli Resulted Last 24 Hours Test 02/01/17 20:10 02/01/17 20:19 02/01/17 20:23 02/01/17 21:15 White Blood Count 9.55 K/uL Red Blood Count 4.35 M/uL Hemoglobin 12.9 g/dL Hematocrit 38.6 % Mean Corpuscular Volume 88.7 fL Mean Corpuscular Hemoglobin 29.7 pg Mean Corpuscular Hemoglobin Concent 33.4 g/dl Platelet Count 187 K/uL Mean Platelet Volume 10.8 fL Neutrophils (%) (Auto) 70.7 % Lymphocytes (%) (Auto) 22.2 % Monocytes (%) (Auto) 6.3 % Eosinophils (%) (Auto) 0.5 % Basophils (%) (Auto) 0.1 % Neutrophils # (Auto) 6.75 K/uL Lymphocytes # (Auto) 2.12 K/uL Monocytes # (Auto) 0.60 K/uL Eosinophils # (Auto) 0.05 K/uL Basophils # (Auto) 0.01 K/uL RDW Standard Deviation 45.0 fL RDW Coefficient of Variation 13.8 % Immature Granulocyte % (Auto) 0.2 % Immature Granulocyte # (Auto) 0.02 K/uL Prothrombin Time 33.6 SECONDS Prothromb Time International Ratio 3.0 Sodium Level 137 mmol/L Potassium Level 4.0 mmol/L Chloride Level 102 mmol/L Carbon Dioxide Level 24 mmol/L Anion Gap 11.0 mmol/L 19.0 mmol/L Blood Urea Nitrogen 19 mg/dl Creatinine 1.30 mg/dl Est Creatinine Clear Calc Drug Dose 34.2 ml/min Estimated GFR () 43.3 Estimated GFR (Non- 37.4 BUN/Creatinine Ratio 14.7 Random Glucose 166 mg/dl Calcium Level 9.1 mg/dl Magnesium Level 1.6 mg/dl Total Bilirubin 0.6 mg/dl Direct Bilirubin 0.2 mg/dl Aspartate Amino Transf (AST/SGOT) 24 U/L Alanine Aminotransferase (ALT/SGPT) 28 U/L Alkaline Phosphatase 81 U/L Total Creatine Kinase 51 U/L Creatine Kinase MB 1.8 ng/ml Creatine Kinase MB Ratio 3.5 Troponin I 0.896 ng/ml Total Protein 7.7 gm/dl Albumin 3.5 gm/dl Bedside Lactic Acid Venous 3.07 mmol/L Bedside Hemoglobin 13.6 g/dl Bedside Hematocrit 40 % Bedside Sodium 136 mEq/L Bedside Potassium 4.0 mEq/L Bedside Chloride 100 mEq/L Bedside Total CO2 22 mEq/l Bedside Blood Urea Nitrogen 19 mg/dl Bedside Creatinine 1.1 mg/dl Bedside Glucose (other) 171 mg/dl Bedside Ionized Calcium (Jessie) 1.08 mmol/l Urine Color DK YELLOW Urine Appearance CLEAR Urine pH 5.0 Urine Specific [place] > 1.045 Urine Protein 1+ Urine Glucose (UA) NEG Urine Ketones 1+ Urine Occult Blood TRACE Urine Nitrite NEG Urine Bilirubin NEG Urine Urobilinogen NEG Urine Leukocyte Esterase NEG Urine WBC (Auto) 1-5 /hpf Urine RBC (Auto) 0-4 /hpf Urine Hyaline Casts (Auto) 5-10 /lpf Urine Epithelial Cells (Auto) >30 /lpf Urine Bacteria (Auto) NEG Urine Renal Epithelial Cells 0-5 /lpf Urine Pathogenic Casts 1-5 GRANULAR CASTS /lpf Test 02/02/17 01:00 02/02/17 03:53 02/02/17 04:28 02/02/17 04:30 Lactic Acid Level 1.2 mmol/L 2.2 mmol/L Creatine Kinase MB 1.7 ng/ml 2.4 ng/ml Creatine Kinase MB Ratio 4.0 Troponin I 0.976 ng/ml 0.805 ng/ml Bedside Glucose 123 mg/dl White Blood Count 3.81 K/uL Red Blood Count 3.84 M/uL Hemoglobin 11.5 g/dL Hematocrit 33.9 % Mean Corpuscular Volume 88.3 fL Mean Corpuscular Hemoglobin 29.9 pg Mean Corpuscular Hemoglobin Concent 33.9 g/dl RDW Standard Deviation 44.7 fL RDW Coefficient of Variation 13.9 % Platelet Count 125 K/uL Mean Platelet Volume 10.5 fL Prothrombin Time 30.4 SECONDS Prothromb Time International Ratio 2.7 Sodium Level 142 mmol/L Potassium Level 3.5 mmol/L Chloride Level 108 mmol/L Carbon Dioxide Level 22 mmol/L Anion Gap 12.0 mmol/L Blood Urea Nitrogen 16 mg/dl Creatinine 0.99 mg/dl Est Creatinine Clear Calc Drug Dose 44.9 ml/min Estimated GFR () 60.2 Estimated GFR (Non- 52.0 BUN/Creatinine Ratio 16.3 Random Glucose 153 mg/dl Estimated Average Glucose 120 mg/dl Hemoglobin A1c 5.8 % Calcium Level 7.9 mg/dl Total Bilirubin 0.8 mg/dl Aspartate Amino Transf (AST/SGOT) 20 U/L Alanine Aminotransferase (ALT/SGPT) 22 U/L Alkaline Phosphatase 71 U/L Total Creatine Kinase 60 U/L Total Protein 6.5 gm/dl Albumin 2.8 gm/dl Globulin 3.7 gm/dl Albumin/Globulin Ratio 0.8 Procalcitonin 1.81 ng/ml Test 02/02/17 06:21 Bedside Glucose 136 mg/dl Patient Name: MARIAH OLIVAS Unit Number: [id number] Dictated: 02/01/172038 Transcribed: 02/01/172038 MS Printed Date/Time: [~ rep prt dt]/[~ rep prt tm] [~ rep ct labl] - [~ rep ct ivnm] [facility] [place] [address] Dictated: 02/01/172038 Transcribed: 02/01/172038 MS Printed Date/Time: [~ rep prt dt]/[~ rep prt tm] [~ rep ct labl] - [~ rep ct ivnm] [~ rep ct add3]] ABDOMEN AND PELVIS CT WITH IV CONTRAST CT DOSE: 668.25 mGy.cm HISTORY: vomiting w/ abd pain fever and tachy TECHNIQUE: Multiaxial CT images of the abdomen and pelvis were performed following the use of intravenous contrast. COMPARISON STUDY: 04/08/2016 FINDINGS: Lung bases are clear. Stable postoperative changes to the right hepatic lobe as well as findings of a prior cholecystectomy. These findings are unchanged from the prior exam. Cortical scarring of the peripheral aspect of the residual right hepatic lobe. This is also unchanged. Kidneys enhance uniformly. Several microcysts are present. Small cyst of the spleen is stable. Pancreas is uniform throughout. Ventral hernias are again noted. These are unchanged in appearance. Bowel pattern overall is nonobstructive. Bladder is midline. There is no free fluid within the pelvic cul-de-sac. Scattered colonic diverticuli are present with no evidence for diverticulitis. Postoperative bowel changes are within the anterior central pelvis is stable. This is a nonobstructive finding and again is stable from the prior exam. There is no evidence for significant perirectal para-aortic abdominal pelvic or inguinal brady pathology. There are moderate degenerative changes of the hips as well as lumbar spine. IMPRESSION: Chronic and stable postoperative changes throughout the abdomen and pelvis. No acute process is identified. Electronically signed by: Hiram Barrow M.D. 02/01/2017 8:43 PM Dictated Date/Time: 02/01/2017 8:39 PM The status of this report is Signed. Draft = Not yet reviewed or approved by Radiologist. Signed = Reviewed and approved by Radiologist. <AttendingPhy></AttendingPhy> <FamilyPhy>Brandee Forman M.D.</FamilyPhy> < PrimaryPhy>Brandee Forman M.D.</PrimaryPhy> <UnitNumber>[id number]</UnitNumber > <VisitNumber>[id number]</VisitNumber> <PatientName>MARIAH OLIVAS</ PatientName> <DateOfBirth>1930</DateOfBirth> <Location>[facility]</Location> < ServiceDate>02/01/17</ServiceDate> <MNE>ESINDI</MNE> <OrderingPhy>Mayo Jones DO</OrderingPhy> <OrderingPhyMNE>f rep ord dr zabala</OrderingPhyMNE> < DictatingPhyMNE>f rep dict dr zabala</DictatingPhyMNE> <CCListMNE>f rep ct mne</ CCListMNE> <AdmittingPhyMNE>f pt admit dr zabala</AdmittingPhyMNE> <AttendingPhyMNE >f pt attend dr zabala</AttendingPhyMNE> <ConsultingPhyMNE>f pt consult dr zabala</ConsultingPhyMNE> <FamilyPhyMNE>f pt fam dr zabala</FamilyPhyMNE> <OtherPhyMNE>f pt other dr zabala</OtherPhyMNE> < PrimaryPhyMNE>f pt prim care dr zabala</PrimaryPhyMNE> <ReferringPhyMNE>f pt referring dr zabala</ReferringPhyMNE> Assessment & Plan Gram negative sepsis, 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 Would continue Zosyn pending final identification and sensitivities. Will need to follow CBC closely given dropping WBC and platelets. Daptomycin discontinued. Will follow.
[2017-02-02 11:37] LABS: BUN/CREATININE RATIO 17.2 (10-20); CALCIUM 7.7 mg/dl (8.5-10.1); CREATININE 0.83 mg/dl (0.60-1.20); POTASSIUM 3.5 mmol/L (3.5-5.1)
[2017-02-02] MEDS ORDERED: NURSING VERBAL MED ORDER ONE (14:00)
--- NOTE | 2017-02-02 15:02 | DIAGNOSTIC IMAGING REPORT ---
ULTRASOUND RIGHT UPPER QUADRANT ABDOMEN CLINICAL HISTORY: Fever of unknown origin. COMPARISON STUDY: Abdominal CT dated 02/01/2017. TECHNIQUE: Real-time, grayscale, and color flow sonography of the right upper quadrant of the abdomen was performed. Images are reviewed in the transverse and longitudinal planes. FINDINGS: Liver: The liver is normal in size and heterogeneous and echotexture. There is no intrahepatic biliary ductal dilatation. There is evidence of pneumobilia. The main portal vein is patent. Gallbladder: The gallbladder is surgically absent. The common bile duct measures up to 0.3 cm in diameter. Pancreas: Visualized portions of the pancreatic head are normal in appearance. The majority of the pancreas was not well visualized. Right kidney: Survey images of the right kidney demonstrate cortical atrophy. There is no hydronephrosis. Ascites: None. IMPRESSION: 1. No acute sonographic abnormality is identified in the right upper quadrant noting status post cholecystectomy. 2. Pneumobilia is again noted and likely related previous sphincterotomy. Electronically signed by: Oscar Judd M.D. 02/02/2017 3:01 PM Dictated Date/Time: 02/02/2017 2:57 PM
--- NOTE | 2017-02-02 15:35 | Progress Note ---
Internal Med Progress Note Date of Service: February 02, 2017. Provider Documentation: SUBJECTIVE: resting comfortably says was sweating last night was sob when walked to bathroom denies chest pain denies any abdominal pain or nausea now afebrile OBJECTIVE: Vital Signs-as noted below Exam: General-alert and awake and oriented x 3 ENT-normal hearing Neck-no neck masses Lungs-cta b/l no wheezing or crackles Heart-s1 and s2 heard regular rate and rhythm no murmurs Abdomen-soft bowel sounds present non tender no distension Extremities- no present no erythema Neuro-alert and awake oriented x 3 moves extremities Lab data as noted below. ASSESSMENT & PLAN: SEPSIS Bacteremia with gm negative bacilli mostly recurrent cholangitis CT abd/pelvis in ER negative for acute findings initially started on iv Zosyn and daptomycin currently off of daptomycin Lft's unremarkable GI and ID on board and appreciate inputs lactic acid normalized hemodynamics stable WEST Most likely prerenal due to poor PO intake and GI loss from vomiting ARB on hold on fluids resolved ELEVATED TROPONIN Most likely demand ischemia from tachycardia Asymptomatic, EKG does not show any acute ST changes will monitor ATRIAL FIBRILLATION, HX PACEMAKER rate uncontrolled likely due to dehydration / sepsis on Toprol xl inr 2.7 today Coumadin on hold currently HTN To continue metoprolol, holding losartan due to WEST will monitor DM hgb a1c 6.5 08/2016 Holding oral agents and utilize SSI while hospitalized DVT PROPHYLAXIS on Coumadin with therapeutic INR CODE STATUS Full as per H and P DISPO To be determined Vital Signs: Date Time Temp Pulse Resp B/P Pulse Ox O2 Delivery O2 Flow Rate FiO2 02/02/17 11:33 36.6 95 16 102/56 95 Room Air 02/02/17 11:10 Room Air 02/02/17 08:24 109 116/71 02/02/17 07:30 Room Air 2.0 02/02/17 07:20 37.4 118 16 93/48 92 Room Air 02/02/17 05:21 120 132/75 02/02/17 04:54 112 18 131/70 02/02/17 04:30 118 22 110/54 95 Nasal Cannula 2.0 02/02/17 04:06 140/80 02/02/17 04:00 Room Air 02/02/17 03:59 37.5 135 28 99 Nasal Cannula 2.0 02/02/17 03:55 148 30 95 Nasal Cannula 2.0 02/02/17 03:52 38.0 151 28 136/94 94 Nasal Cannula 2.0 02/02/17 03:10 36.6 77 20 110/61 96 Room Air 02/02/17 01:03 37.3 02/01/17 23:59 Room Air 02/01/17 23:00 38.3 116 20 137/70 93 Room Air 02/01/17 22:43 37.6 118 22 138/69 95 02/01/17 19:40 37.6 118 22 138/69 95 Room Air Lab Results: Results Past 24 Hours Test 02/01/17 20:10 02/01/17 20:19 02/01/17 20:23 02/01/17 21:15 Range/Units White Blood Count 9.55 4.8-10.8 K/uL Red Blood Count 4.35 4.2-5.4 M/uL Hemoglobin 12.9 12.0-16.0 g/dL Hematocrit 38.6 37-47 % Mean Corpuscular Volume 88.7 80-100 fL Mean Corpuscular Hemoglobin 29.7 25-34 pg Mean Corpuscular Hemoglobin Concent 33.4 32-36 g/dl Platelet Count 187 130-400 K/uL Mean Platelet Volume 10.8 7.4-10.4 fL Neutrophils (%) (Auto) 70.7 % Lymphocytes (%) (Auto) 22.2 % Monocytes (%) (Auto) 6.3 % Eosinophils (%) (Auto) 0.5 % Basophils (%) (Auto) 0.1 % Neutrophils # (Auto) 6.75 1.4-6.5 K/uL Lymphocytes # (Auto) 2.12 1.2-3.4 K/uL Monocytes # (Auto) 0.60 0.11-0.59 K/uL Eosinophils # (Auto) 0.05 0-0.5 K/uL Basophils # (Auto) 0.01 0-0.2 K/uL RDW Standard Deviation 45.0 36.4-46.3 fL RDW Coefficient of Variation 13.8 11.5-14.5 % Immature Granulocyte % (Auto) 0.2 % Immature Granulocyte # (Auto) 0.02 0.00-0.02 K/uL Prothrombin Time 33.6 9.0-12.0 SECONDS Prothromb Time International Ratio 3.0 0.9-1.1 Sodium Level 137 136-145 mmol/L Potassium Level 4.0 3.5-5.1 mmol/L Chloride Level 102 98-107 mmol/L Carbon Dioxide Level 24 21-32 mmol/L Anion Gap 11.0 19.0 16-25 mmol/L Blood Urea Nitrogen 19 7-18 mg/dl Creatinine 1.30 0.60-1.20 mg/dl Est Creatinine Clear Calc Drug Dose 34.2 ml/min Estimated GFR () 43.3 Estimated GFR (Non- 37.4 BUN/Creatinine Ratio 14.7 10-20 Random Glucose 166 70-99 mg/dl Calcium Level 9.1 8.5-10.1 mg/dl Magnesium Level 1.6 1.8-2.4 mg/dl Total Bilirubin 0.6 0.2-1 mg/dl Direct Bilirubin 0.2 0-0.2 mg/dl Aspartate Amino Transf (AST/SGOT) 24 15-37 U/L Alanine Aminotransferase (ALT/SGPT) 28 12-78 U/L Alkaline Phosphatase 81 45-117 U/L Total Creatine Kinase 51 26-192 U/L Creatine Kinase MB 1.8 0.5-3.6 ng/ml Creatine Kinase MB Ratio 3.5 0-3.0 Troponin I 0.896 0-0.045 ng/ml Total Protein 7.7 6.4-8.2 gm/dl Albumin 3.5 3.4-5.0 gm/dl Bedside Lactic Acid Venous 3.07 0.90-1.70 mmol/L Bedside Hemoglobin 13.6 12.0-16.0 g/dl Bedside Hematocrit 40 37-47 % Bedside Sodium 136 135-144 mEq/L Bedside Potassium 4.0 3.3-5.0 mEq/L Bedside Chloride 100 101-112 mEq/L Bedside Total CO2 22 24-31 mEq/l Bedside Blood Urea Nitrogen 19 7-18 mg/dl Bedside Creatinine 1.1 0.6-1.3 mg/dl Bedside Glucose (other) 171 70-99 mg/dl Bedside Ionized Calcium (Jessie) 1.08 1.12-1.32 mmol/l Urine Color DK YELLOW Urine Appearance CLEAR CLEAR Urine pH 5.0 4.5-7.5 Urine Specific [place] > 1.045 1.000-1.030 Urine Protein 1+ NEG Urine Glucose (UA) NEG NEG Urine Ketones 1+ NEG Urine Occult Blood TRACE NEG Urine Nitrite NEG NEG Urine Bilirubin NEG NEG Urine Urobilinogen NEG NEG Urine Leukocyte Esterase NEG NEG Urine WBC (Auto) 1-5 0-5 /hpf Urine RBC (Auto) 0-4 0-4 /hpf Urine Hyaline Casts (Auto) 5-10 0-5 /lpf Urine Epithelial Cells (Auto) >30 0-5 /lpf Urine Bacteria (Auto) NEG NEG Urine Renal Epithelial Cells 0-5 0-5 /lpf Urine Pathogenic Casts 1-5 GRANULAR CASTS 0 /lpf Test 02/02/17 01:00 02/02/17 03:53 02/02/17 04:28 02/02/17 04:30 Range/Units Lactic Acid Level 1.2 2.2 0.4-2.0 mmol/L Creatine Kinase MB 1.7 2.4 0.5-3.6 ng/ml Creatine Kinase MB Ratio 4.0 0-3.0 Troponin I 0.976 0.805 0-0.045 ng/ml Bedside Glucose 123 70-90 mg/dl White Blood Count 3.81 4.8-10.8 K/uL Red Blood Count 3.84 4.2-5.4 M/uL Hemoglobin 11.5 12.0-16.0 g/dL Hematocrit 33.9 37-47 % Mean Corpuscular Volume 88.3 80-100 fL Mean Corpuscular Hemoglobin 29.9 25-34 pg Mean Corpuscular Hemoglobin Concent 33.9 32-36 g/dl RDW Standard Deviation 44.7 36.4-46.3 fL RDW Coefficient of Variation 13.9 11.5-14.5 % Platelet Count 125 130-400 K/uL Mean Platelet Volume 10.5 7.4-10.4 fL Prothrombin Time 30.4 9.0-12.0 SECONDS Prothromb Time International Ratio 2.7 0.9-1.1 Sodium Level 142 136-145 mmol/L Potassium Level 3.5 3.5-5.1 mmol/L Chloride Level 108 98-107 mmol/L Carbon Dioxide Level 22 21-32 mmol/L Anion Gap 12.0 3-11 mmol/L Blood Urea Nitrogen 16 7-18 mg/dl Creatinine 0.99 0.60-1.20 mg/dl Est Creatinine Clear Calc Drug Dose 44.9 ml/min Estimated GFR () 60.2 Estimated GFR (Non- 52.0 BUN/Creatinine Ratio 16.3 10-20 Random Glucose 153 70-99 mg/dl Estimated Average Glucose 120 mg/dl Hemoglobin A1c 5.8 4.5-5.6 % Calcium Level 7.9 8.5-10.1 mg/dl Total Bilirubin 0.8 0.2-1 mg/dl Aspartate Amino Transf (AST/SGOT) 20 15-37 U/L Alanine Aminotransferase (ALT/SGPT) 22 12-78 U/L Alkaline Phosphatase 71 45-117 U/L Total Creatine Kinase 60 26-192 U/L Total Protein 6.5 6.4-8.2 gm/dl Albumin 2.8 3.4-5.0 gm/dl Globulin 3.7 2.5-4.0 gm/dl Albumin/Globulin Ratio 0.8 0.9-2 Procalcitonin 1.81 0-0.5 ng/ml Test 02/02/17 06:21 02/02/17 10:50 02/02/17 11:28 Range/Units Bedside Glucose 136 166 70-90 mg/dl Sodium Level 142 136-145 mmol/L Potassium Level 3.5 3.5-5.1 mmol/L Chloride Level 109 98-107 mmol/L Carbon Dioxide Level 24 21-32 mmol/L Anion Gap 9.0 3-11 mmol/L Blood Urea Nitrogen 14 7-18 mg/dl Creatinine 0.83 0.60-1.20 mg/dl Est Creatinine Clear Calc Drug Dose 53.5 ml/min Estimated GFR () 74.5 Estimated GFR (Non- 64.3 BUN/Creatinine Ratio 17.2 10-20 Random Glucose 170 70-99 mg/dl Lactic Acid Level 1.2 0.4-2.0 mmol/L Calcium Level 7.7 8.5-10.1 mg/dl Microbiology Results 02/02/17 Blood Culture, Received Pending 02/02/17 Blood Culture, Received Pending 02/01/17 Blood Culture - Preliminary, Resulted Gram Negative Bacilli 02/01/17 Blood Culture - Preliminary, Resulted Gram Negative Bacilli
[2017-02-02] MEDS ORDERED: WARFARIN SOD 5 MG TAB PO SCH (16:00)
[2017-02-02] MEDS: METOPROLOL SUCC 50MG EXT REL TAB PO SCH (20:13)
[2017-02-03] VITALS (7 sets, daily range): BP systolic 120–142; BP diastolic 55–78; PULSE 73–103; TEMP 36.7–38; O2SAT 93–97
[2017-02-03] MEDS: LACTATED RINGER'S 1000ML 1,000 ML IV SCH ×3 (02:06→21:52)
[2017-02-03] MEDS: PIPERACILL/TAZOBAC IV 3.375 GM in DEXTROSE 5% 100ML IV SCH ×3 (02:06→17:28)
[2017-02-03 06:53] LABS: INR 2.4 (0.9-1.1); PROTHROMBIN TIME (PATIENT) 26.8 SECONDS (9.0-12.0)
[2017-02-03] MEDS: TIMOLOL MALEATE 0.5% OP SOLN 5 ML BTL OPB SCH ×2 (07:33→19:48)
[2017-02-03] MEDS: PANTOprazole SOD 40 MG TAB PO SCH (07:33)
[2017-02-03] MEDS: CALCIUM 600MG + VIT D 400 IU TAB PO SCH (07:33)
[2017-02-03] MEDS: POLYETHYLENE (MIRALAX) 17 GM PACK PO SCH (07:37)
[2017-02-03] MEDS: INSULIN ASPART 100 UNITS/ML 3 ML PEN SC SCH ×4 (07:37→20:17)
--- NOTE | 2017-02-03 09:40 | Gastroenterology Progress Note ---
Progress Note Date of Service: February 03, 2017 Subjective Pt evaluation today including: conversation w/ patient, physical exam, chart review, lab review, review of studies, review of inpatient medication list Pt was febrile overnight again. Previously had chills symptoms but denies now. She denies any CP, SOB, n/v, abd pain. Had normal BM this AM. Tolerating regular consistency breakfast. Repeat blood cx yesterday w/o growth Review of Systems Constitutional: + fever, No chills Respiratory: No cough, No shortness of breath Cardiac: No chest pain Abdomen: No GI bleeding, No constipation, No diarrhea, No nausea, No pain, No vomiting Medications Current Inpatient Medications Medications (Trade) Dose Ordered Sig/Anjana Route Start Time Stop Time Status Last Admin Dose Admin Ioversol (Optiray 320) 100 ml UD PRN IV 02/01/17 20:15 02/05/17 20:14 Acetaminophen (Tylenol Tab) 650 mg Q4H PRN PO 02/01/17 21:45 03/03/17 21:44 02/02/17 19:17 650 MG Ondansetron HCl (Zofran Inj) 4 mg Q6H PRN IV 02/01/17 21:45 03/03/17 21:44 Piperacillin Sod/ Tazobactam Sod (Consult) 1 ea UD PRN N/A 02/01/17 22:01 03/03/17 22:00 Insulin Aspart (novoLOG ASPART) SLIDING SCALE If C... ACHS SC 02/02/17 07:00 03/04/17 06:59 02/03/17 07:37 3 UNITS Glucose (Glucose 40% Gel) 15-30 GRAMS 15 GRAMS... UD PRN PO 02/01/17 22:00 03/03/17 21:59 Glucose (Glucose Chew Tab) 4-8 Tablets 4 Tabl... UD PRN PO 02/01/17 22:00 03/03/17 21:59 Dextrose (Dextrose 50% 50ML Syringe) 25-50ML OF 50% DW IV FOR... UD PRN IV 02/01/17 22:00 03/03/17 21:59 Glucagon (Glucagon Inj) 1 mg UD PRN SQ 02/01/17 22:00 03/03/17 21:59 Calcium/Vitamin D (Caltrate Plus Tab) 1 tab DAILY PO 02/02/17 09:00 03/04/17 08:59 02/03/17 07:33 1 TAB Metoprolol Succinate (Toprol Xl Tab) 50 mg QPM PO 02/02/17 21:00 03/04/17 20:59 02/02/17 20:13 50 MG Pantoprazole Sodium (Protonix Tab) 40 mg DAILY PO 02/02/17 09:00 03/04/17 08:59 02/03/17 07:33 40 MG Timolol Maleate (Timoptic 0.5% Oph Soln) 1 drops BID OPB 02/02/17 09:00 03/04/17 08:59 02/03/17 07:33 1 DROPS Polyethylene 17 gm 17 gm QAM PO 02/02/17 09:00 03/04/17 08:59 02/02/17 08:04 17 GM Piperacillin Sod/ Tazobactam Sod 3.375 gm/Dextrose 115 ml @ 28.75 mls/ hr Q8H IV 02/02/17 02:00 02/12/17 01:59 02/03/17 02:06 28.75 MLS/HR Lactated Ringer's (Lr 1000ml) 1,000 ml @ 100 mls/hr Q10H IV 02/02/17 05:15 03/04/17 05:14 02/03/17 02:06 100 MLS/HR Objective Vital Signs Date Time Temp Pulse Resp B/P Pulse Ox O2 Delivery O2 Flow Rate FiO2 02/03/17 08:00 Room Air 02/03/17 07:24 37.5 88 16 129/55 96 Room Air 02/03/17 04:00 36.7 82 18 134/68 97 Room Air 02/03/17 04:00 Room Air 02/03/17 00:00 Room Air 02/02/17 23:26 36.8 84 20 137/62 96 Room Air 02/02/17 20:05 37.7 02/02/17 20:00 Room Air 02/02/17 20:00 38.5 102 18 140/78 92 Room Air 02/02/17 16:00 Room Air 02/02/17 15:22 37.1 91 16 113/60 94 Room Air 02/02/17 11:33 36.6 95 16 102/56 95 Room Air 02/02/17 11:10 Room Air Physical Exam General Appearance: WD/WN, no apparent distress Eyes: normal inspection, PERRL, EOMI Neck: supple, no JVD, trachea midline Respiratory/Chest: normal breath sounds, no respiratory distress, no accessory muscle use Cardiovascular: regular rate, rhythm, no gallop, no murmur Abdomen: normal bowel sounds, non tender, soft Extremities: normal inspection, no pedal edema, no calf tenderness Neurologic/Psych: alert, normal mood/affect, oriented x 3 Skin: normal color, no jaundice, no rash Laboratory Results Last 24 Hours Test 02/02/17 10:50 02/02/17 11:28 02/02/17 16:09 02/02/17 19:53 Sodium Level 142 mmol/L Potassium Level 3.5 mmol/L Chloride Level 109 mmol/L Carbon Dioxide Level 24 mmol/L Anion Gap 9.0 mmol/L Blood Urea Nitrogen 14 mg/dl Creatinine 0.83 mg/dl Est Creatinine Clear Calc Drug Dose 53.5 ml/min Estimated GFR () 74.5 Estimated GFR (Non- 64.3 BUN/Creatinine Ratio 17.2 Random Glucose 170 mg/dl Lactic Acid Level 1.2 mmol/L Calcium Level 7.7 mg/dl Bedside Glucose 166 mg/dl 132 mg/dl 198 mg/dl Test 02/03/17 05:50 02/03/17 06:37 Prothrombin Time 26.8 SECONDS Prothromb Time International Ratio 2.4 Bedside Glucose 158 mg/dl Assessment and Plan Pt is a 86 y/o female admitted w fever, sepsis (gram negative bacilli on blood cx), 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 LFTs normal, CT abd/pelvis, liver u/s unremarkable. Her last ERCP was in 2012 pancreatic duct stent placement. She is w/o s/s of RUQ abd pain, n/v. She is currently on Zosyn IV, ID service following. Repeat blood cx yesterday no growth. - ID service following, appreciate input on antibx use, hopefully can convert to PO form upon DC. - No further GI workup at this time, though if continues to be febrile, and if having symptoms of RUQ abd pain, n/v, jaundice, repeat LFTs and likely may need ERCP intervention. Attg addendum: I interviewed and examined pt, reviewed chart and labs, agree with plan as above. Pt feels bloated, although she denies abd pain, is lise PO, and is having BM's. She was febrile last night despite Zosyn. Blood cx show GNR's. I presume that she has biliary spesis, despite absence of abnl lft's or abd pain. Cont empiric abx; sagrario to sensitivities. May be discharged if remains afeb x 24 hours.
[2017-02-03] MEDS: LIDODERM (LIDOCAINE) PATCH 5% TD SCH (11:38)
[2017-02-03] MEDS ORDERED: DICYCLOMINE HCL 10 MG CAP PO PRN (14:30)
[2017-02-03] MEDS ORDERED: NURSING VERBAL MED ORDER ONE (15:00)
--- NOTE | 2017-02-03 15:57 | Progress Note ---
Internal Med Progress Note Date of Service: February 03, 2017. Provider Documentation: SUBJECTIVE: resting comfortably abdominal discomfort improved no nausea tolerating diet afebrile OBJECTIVE: Vital Signs-as noted below Exam: General-alert and awake and oriented x 3 ENT-normal hearing Neck-no neck masses Lungs-cta b/l no wheezing or crackles Heart-s1 and s2 heard regular rate and rhythm no murmurs Abdomen-soft bowel sounds present non tender no distension Extremities- no present no erythema Neuro-alert and awake oriented x 3 moves extremities Lab data as noted below. ASSESSMENT & PLAN: SEPSIS Bacteremia with gm negative bacilli mostly recurrent cholangitis CT abd/pelvis in ER negative for acute findings initially started on iv Zosyn and daptomycin currently off of daptomycin Lft's unremarkable GI and ID on board and appreciate inputs lactic acid normalized hemodynamics stable await final cultures total 10-14 days of abx WEST Most likely prerenal due to poor PO intake and GI loss from vomiting ARB on hold on fluids resolved ELEVATED TROPONIN Most likely demand ischemia from tachycardia Asymptomatic, EKG does not show any acute ST changes will monitor ATRIAL FIBRILLATION, HX PACEMAKER rate uncontrolled likely due to dehydration / sepsis on Toprol xl inr 2.4 today Coumadin HTN To continue metoprolol, holding losartan due to WEST will restart losartan will monitor DM hgb a1c 6.5 08/2016 Holding oral agents and utilize SSI while hospitalized DVT PROPHYLAXIS on Coumadin with therapeutic INR CODE STATUS Full as per H and P DISPO possible d/c in 1-2 days pt/ot Vital Signs: Date Time Temp Pulse Resp B/P Pulse Ox O2 Delivery O2 Flow Rate FiO2 02/03/17 12:00 Room Air 02/03/17 11:38 37.3 93 20 141/78 94 Room Air 02/03/17 08:00 Room Air 02/03/17 07:24 37.5 88 16 129/55 96 Room Air 02/03/17 04:00 36.7 82 18 134/68 97 Room Air 02/03/17 04:00 Room Air 02/03/17 00:00 Room Air 02/02/17 23:26 36.8 84 20 137/62 96 Room Air 02/02/17 20:05 37.7 02/02/17 20:00 Room Air 02/02/17 20:00 38.5 102 18 140/78 92 Room Air 02/02/17 16:00 Room Air Lab Results: Results Past 24 Hours Test 02/02/17 16:09 02/02/17 19:53 02/03/17 05:50 02/03/17 06:37 Range/Units Bedside Glucose 132 198 158 70-90 mg/dl Prothrombin Time 26.8 9.0-12.0 SECONDS Prothromb Time International Ratio 2.4 0.9-1.1
[2017-02-03] MEDS ORDERED: WARFARIN SOD 7.5 MG TAB PO SCH ×2 (16:00)
--- NOTE | 2017-02-03 17:14 | DIAGNOSTIC IMAGING REPORT ---
KUB CLINICAL HISTORY: Abdominal distention. Evaluate for colonic distention. COMPARISON STUDY: CT of the abdomen and pelvis February 01, 2017. FINDINGS: There are are bowel anastomoses and cholecystectomy clips. Severe arthritis of the right hip is noted. There is mild gaseous distention of the colon which has developed since prior exam of February 01, 2017. However, there is no evidence for a bowel obstruction. A few prominent loops of gas-filled small bowel are present. IMPRESSION: Mild gaseous distention of the colon without convincing evidence for a bowel obstruction. Electronically signed by: Mayur Johnson M.D. 02/03/2017 5:13 PM Dictated Date/Time: 02/03/2017 5:11 PM
--- NOTE | 2017-02-03 17:53 | Infectious Disease Progress Nt ---
Progress Note Date of Service February 03, 2017. Subjective Pt evaluation today including: conversation w/ patient, conversation w/ family , physical exam, chart review, lab review, review of studies, conversation w/ career consultant, review of inpatient medication list Feeling better today. No fever. No N+V. Abdominal pain improved. Still no ID of gram negative in blood. All Other Systems: Reviewed and Negative Medications Current Inpatient Medications Medications (Trade) Dose Ordered Sig/Anjana Route Start Time Stop Time Status Last Admin Dose Admin Ioversol (Optiray 320) 100 ml UD PRN IV 02/01/17 20:15 02/05/17 20:14 Acetaminophen (Tylenol Tab) 650 mg Q4H PRN PO 02/01/17 21:45 03/03/17 21:44 02/02/17 19:17 650 MG Ondansetron HCl (Zofran Inj) 4 mg Q6H PRN IV 02/01/17 21:45 03/03/17 21:44 Piperacillin Sod/ Tazobactam Sod (Consult) 1 ea UD PRN N/A 02/01/17 22:01 03/03/17 22:00 Insulin Aspart (novoLOG ASPART) SLIDING SCALE If C... ACHS SC 02/02/17 07:00 03/04/17 06:59 02/03/17 17:28 1 UNITS Glucose (Glucose 40% Gel) 15-30 GRAMS 15 GRAMS... UD PRN PO 02/01/17 22:00 03/03/17 21:59 Glucose (Glucose Chew Tab) 4-8 Tablets 4 Tabl... UD PRN PO 02/01/17 22:00 03/03/17 21:59 Dextrose (Dextrose 50% 50ML Syringe) 25-50ML OF 50% DW IV FOR... UD PRN IV 02/01/17 22:00 03/03/17 21:59 Glucagon (Glucagon Inj) 1 mg UD PRN SQ 02/01/17 22:00 03/03/17 21:59 Calcium/Vitamin D (Caltrate Plus Tab) 1 tab DAILY PO 02/02/17 09:00 03/04/17 08:59 02/03/17 07:33 1 TAB Metoprolol Succinate (Toprol Xl Tab) 50 mg QPM PO 02/02/17 21:00 03/04/17 20:59 02/02/17 20:13 50 MG Pantoprazole Sodium (Protonix Tab) 40 mg DAILY PO 02/02/17 09:00 03/04/17 08:59 02/03/17 07:33 40 MG Timolol Maleate (Timoptic 0.5% Oph Soln) 1 drops BID OPB 02/02/17 09:00 03/04/17 08:59 02/03/17 07:33 1 DROPS Polyethylene 17 gm 17 gm QAM PO 02/02/17 09:00 03/04/17 08:59 02/02/17 08:04 17 GM Piperacillin Sod/ Tazobactam Sod 3.375 gm/Dextrose 115 ml @ 28.75 mls/ hr Q8H IV 02/02/17 02:00 02/12/17 01:59 02/03/17 17:28 28.75 MLS/HR Lactated Ringer's (Lr 1000ml) 1,000 ml @ 100 mls/hr Q10H IV 02/02/17 05:15 03/04/17 05:14 02/03/17 02:06 100 MLS/HR Lidocaine (Lidoderm Patch 5%) 1 patch QAM TD 02/03/17 11:30 03/05/17 11:29 02/03/17 11:38 1 PATCH Miscellaneous (Remove Lidoderm Patch) 1 ea DAILY@21 N/A 02/03/17 21:00 03/05/17 20:59 Dicyclomine HCl (Bentyl Cap) 10 mg BID PRN PO 02/03/17 14:30 03/05/17 14:29 Warfarin Sodium (Coumadin Tab) 7.5 mg MoWeFr@1600 PO 02/03/17 16:00 03/05/17 15:59 02/03/17 16:19 7.5 MG Warfarin Sodium (Coumadin Tab) 5 mg SuTuThSa@1600 PO 02/04/17 16:00 03/06/17 15:59 Losartan Potassium (coZAAR TAB) 50 mg QAM PO 02/04/17 09:00 03/06/17 08:59 Objective Vital Signs Date Time Temp Pulse Resp B/P Pulse Ox O2 Delivery O2 Flow Rate FiO2 02/03/17 16:00 Room Air 02/03/17 16:00 37.6 103 20 142/71 94 Room Air 02/03/17 12:00 Room Air 02/03/17 11:38 37.3 93 20 141/78 94 Room Air 02/03/17 08:00 Room Air 02/03/17 07:24 37.5 88 16 129/55 96 Room Air 02/03/17 04:00 36.7 82 18 134/68 97 Room Air 02/03/17 04:00 Room Air 02/03/17 00:00 Room Air 02/02/17 23:26 36.8 84 20 137/62 96 Room Air 02/02/17 20:05 37.7 02/02/17 20:00 Room Air 02/02/17 20:00 38.5 102 18 140/78 92 Room Air Physical Exam General Appearance: WD/WN, no apparent distress Eyes: normal inspection, EOMI, sclerae normal ENT: normal ENT inspection, pharynx normal Neck: supple, no adenopathy, trachea midline Respiratory/Chest: chest non-tender, lungs clear, normal breath sounds, no respiratory distress Cardiovascular: regular rate, rhythm, no gallop, no murmur Abdomen: normal bowel sounds, non tender, soft, no organomegaly Extremities: non-tender, no calf tenderness Neurologic/Psychiatric: alert, oriented x 3 Skin: normal color, no rash Lymphatic: no adenopathy Laboratory Results Last 24 Hours Test 02/02/17 19:53 02/03/17 05:50 02/03/17 06:37 02/03/17 11:36 Bedside Glucose 198 mg/dl 158 mg/dl 193 mg/dl Prothrombin Time 26.8 SECONDS Prothromb Time International Ratio 2.4 Test 02/03/17 16:42 Bedside Glucose 177 mg/dl Assessment and Plan Gram negative sepsis, 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 Would continue Zosyn pending final identification and sensitivities. Will need to follow CBC closely given dropping WBC and platelets. Daptomycin discontinued. Will follow.
[2017-02-03] MEDS: ACETAMINOPHEN 325 MG TAB PO PRN (19:46)
[2017-02-03] MEDS: METOPROLOL SUCC 50MG EXT REL TAB PO SCH (19:47)
[2017-02-04] VITALS (8 sets, daily range): BP systolic 109–156; BP diastolic 63–78; PULSE 74–81; TEMP 36.5–37; O2SAT 94–99
[2017-02-04] MEDS: PIPERACILL/TAZOBAC IV 3.375 GM in DEXTROSE 5% 100ML IV SCH ×2 (01:36→09:51)
[2017-02-04 06:24] LABS: BASO % 0.2 %; BASO ABS # 0.01 K/uL (0-0.2); COMPLETE YES; EOS % 0.9 %; HEMATOCRIT 31.3 % (37-47); IG% 0.3 %; LYMPH % 23.7 %; LYMPH ABS # 1.57 K/uL (1.2-3.4); MEAN CELL VOLUME 88.7 fL (80-100); MEAN CORPUSCULAR HEMOGLOBIN 29.7 pg (25-34); MEAN CORPUSCULAR HGB CONC 33.5 g/dl (32-36); MEAN PLATELET VOLUME 10.8 fL (7.4-10.4); MONO % 11.5 %; NEUT % 63.4 %; PLATELET COUNT 148 K/uL (130-400); RED BLOOD COUNT 3.53 M/uL (4.2-5.4); WHITE BLOOD COUNT 6.63 K/uL (4.8-10.8)
[2017-02-04 06:30] LABS: INR 2.1 (0.9-1.1); PROTHROMBIN TIME (PATIENT) 23.3 SECONDS (9.0-12.0)
[2017-02-04 07:00] LABS: BUN/CREATININE RATIO 8.2 (10-20); CALCIUM 8.4 mg/dl (8.5-10.1); CREATININE 0.66 mg/dl (0.60-1.20); MAGNESIUM 1.7 mg/dl (1.8-2.4); POTASSIUM 3.3 mmol/L (3.5-5.1)
[2017-02-04] MEDS: LACTATED RINGER'S 1000ML 1,000 ML IV SCH (08:22)
[2017-02-04] MEDS: INSULIN ASPART 100 UNITS/ML 3 ML PEN SC SCH ×4 (08:24→20:58)
[2017-02-04] MEDS: LOSARTAN POTASSIUM 50 MG TAB PO SCH (08:24)
[2017-02-04] MEDS: PANTOprazole SOD 40 MG TAB PO SCH (08:25)
[2017-02-04] MEDS: POLYETHYLENE (MIRALAX) 17 GM PACK PO SCH (08:25)
[2017-02-04] MEDS: LIDODERM (LIDOCAINE) PATCH 5% TD SCH ×2 (08:25→08:26)
[2017-02-04] MEDS: TIMOLOL MALEATE 0.5% OP SOLN 5 ML BTL OPB SCH ×2 (08:25→20:50)
[2017-02-04] MEDS: CALCIUM 600MG + VIT D 400 IU TAB PO SCH (08:25)
--- NOTE | 2017-02-04 11:23 | Gastroenterology Progress Note ---
Progress Note Date of Service: February 04, 2017 Subjective Pt evaluation today including: conversation w/ patient, physical exam, chart review, lab review, review of inpatient medication list Pt reports woke up last night w sweats, did spike another fever around 8PM. Denies any more bloating after passing gas last night. KUB showed mild gaseous distension w/o signs of obstruction. Denies any abd pain, n/v. Though appetite not quite back to normal yet. Review of Systems Constitutional: + fever, + sweats, No chills Respiratory: No cough, No shortness of breath Cardiac: No chest pain, No edema Abdomen: No nausea, No pain, No vomiting Medications Current Inpatient Medications Medications (Trade) Dose Ordered Sig/Anjana Route Start Time Stop Time Status Last Admin Dose Admin Ioversol (Optiray 320) 100 ml UD PRN IV 02/01/17 20:15 02/05/17 20:14 Acetaminophen (Tylenol Tab) 650 mg Q4H PRN PO 02/01/17 21:45 03/03/17 21:44 02/03/17 19:46 650 MG Ondansetron HCl (Zofran Inj) 4 mg Q6H PRN IV 02/01/17 21:45 03/03/17 21:44 Piperacillin Sod/ Tazobactam Sod (Consult) 1 ea UD PRN N/A 02/01/17 22:01 03/03/17 22:00 Insulin Aspart (novoLOG ASPART) SLIDING SCALE If C... ACHS SC 02/02/17 07:00 03/04/17 06:59 02/04/17 08:24 3 UNITS Glucose (Glucose 40% Gel) 15-30 GRAMS 15 GRAMS... UD PRN PO 02/01/17 22:00 03/03/17 21:59 Glucose (Glucose Chew Tab) 4-8 Tablets 4 Tabl... UD PRN PO 02/01/17 22:00 03/03/17 21:59 Dextrose (Dextrose 50% 50ML Syringe) 25-50ML OF 50% DW IV FOR... UD PRN IV 02/01/17 22:00 03/03/17 21:59 Glucagon (Glucagon Inj) 1 mg UD PRN SQ 02/01/17 22:00 03/03/17 21:59 Calcium/Vitamin D (Caltrate Plus Tab) 1 tab DAILY PO 02/02/17 09:00 03/04/17 08:59 02/04/17 08:25 1 TAB Metoprolol Succinate (Toprol Xl Tab) 50 mg QPM PO 02/02/17 21:00 03/04/17 20:59 02/03/17 19:47 50 MG Pantoprazole Sodium (Protonix Tab) 40 mg DAILY PO 02/02/17 09:00 03/04/17 08:59 02/04/17 08:25 40 MG Timolol Maleate (Timoptic 0.5% Oph Soln) 1 drops BID OPB 02/02/17 09:00 03/04/17 08:59 02/04/17 08:25 1 DROPS Polyethylene 17 gm 17 gm QAM PO 02/02/17 09:00 03/04/17 08:59 02/04/17 08:25 17 GM Piperacillin Sod/ Tazobactam Sod 3.375 gm/Dextrose 115 ml @ 28.75 mls/ hr Q8H IV 02/02/17 02:00 02/12/17 01:59 02/04/17 09:51 28.75 MLS/HR Lactated Ringer's (Lr 1000ml) 1,000 ml @ 100 mls/hr Q10H IV 02/02/17 05:15 03/04/17 05:14 02/04/17 08:22 100 MLS/HR Lidocaine (Lidoderm Patch 5%) 1 patch QAM TD 02/03/17 11:30 03/05/17 11:29 02/03/17 11:38 1 PATCH Miscellaneous (Remove Lidoderm Patch) 1 ea DAILY@21 N/A 02/03/17 21:00 03/05/17 20:59 02/03/17 19:48 1 EA Dicyclomine HCl (Bentyl Cap) 10 mg BID PRN PO 02/03/17 14:30 03/05/17 14:29 Warfarin Sodium (Coumadin Tab) 7.5 mg MoWeFr@1600 PO 02/03/17 16:00 03/05/17 15:59 02/03/17 16:19 7.5 MG Warfarin Sodium (Coumadin Tab) 5 mg SuTuThSa@1600 PO 02/04/17 16:00 03/06/17 15:59 Losartan Potassium (coZAAR TAB) 50 mg QAM PO 02/04/17 09:00 03/06/17 08:59 02/04/17 08:24 50 MG Objective Vital Signs Date Time Temp Pulse Resp B/P Pulse Ox O2 Delivery O2 Flow Rate FiO2 02/04/17 08:11 36.5 76 18 115/69 94 02/04/17 08:00 Room Air 02/04/17 04:00 95 Room Air 2.0 02/04/17 03:00 37.0 74 15 126/68 95 Room Air 02/04/17 00:01 94 Room Air 2.0 02/03/17 23:29 36.8 77 22 120/73 94 Room Air 02/03/17 22:26 37.2 02/03/17 20:00 Room Air 02/03/17 19:34 38.0 98 18 131/67 93 Room Air 02/03/17 16:00 Room Air 02/03/17 16:00 37.6 103 20 142/71 94 Room Air 02/03/17 12:00 Room Air 02/03/17 11:38 37.3 93 20 141/78 94 Room Air Physical Exam General Appearance: WD/WN, no apparent distress Eyes: normal inspection, PERRL, EOMI Neck: supple, no JVD, trachea midline Respiratory/Chest: normal breath sounds, no respiratory distress, no accessory muscle use Cardiovascular: regular rate, rhythm, no gallop, no murmur Abdomen: normal bowel sounds, non tender, soft Extremities: normal inspection, no pedal edema, no calf tenderness Neurologic/Psych: alert, normal mood/affect, oriented x 3 Skin: normal color, no jaundice, no rash Laboratory Results Last 24 Hours Test 02/03/17 11:36 02/03/17 16:42 02/03/17 20:02 02/03/17 22:24 Bedside Glucose 193 mg/dl 177 mg/dl 187 mg/dl 180 mg/dl Test 02/04/17 05:37 02/04/17 06:55 White Blood Count 6.63 K/uL Red Blood Count 3.53 M/uL Hemoglobin 10.5 g/dL Hematocrit 31.3 % Mean Corpuscular Volume 88.7 fL Mean Corpuscular Hemoglobin 29.7 pg Mean Corpuscular Hemoglobin Concent 33.5 g/dl Platelet Count 148 K/uL Mean Platelet Volume 10.8 fL Neutrophils (%) (Auto) 63.4 % Lymphocytes (%) (Auto) 23.7 % Monocytes (%) (Auto) 11.5 % Eosinophils (%) (Auto) 0.9 % Basophils (%) (Auto) 0.2 % Neutrophils # (Auto) 4.21 K/uL Lymphocytes # (Auto) 1.57 K/uL Monocytes # (Auto) 0.76 K/uL Eosinophils # (Auto) 0.06 K/uL Basophils # (Auto) 0.01 K/uL RDW Standard Deviation 46.0 fL RDW Coefficient of Variation 14.0 % Immature Granulocyte % (Auto) 0.3 % Immature Granulocyte # (Auto) 0.02 K/uL Prothrombin Time 23.3 SECONDS Prothromb Time International Ratio 2.1 Sodium Level 144 mmol/L Potassium Level 3.3 mmol/L Chloride Level 107 mmol/L Carbon Dioxide Level 33 mmol/L Anion Gap 4.0 mmol/L Blood Urea Nitrogen 5 mg/dl Creatinine 0.66 mg/dl Est Creatinine Clear Calc Drug Dose 68.5 ml/min Estimated GFR () 93.4 Estimated GFR (Non- 80.6 BUN/Creatinine Ratio 8.2 Random Glucose 177 mg/dl Calcium Level 8.4 mg/dl Magnesium Level 1.7 mg/dl Total Bilirubin 0.5 mg/dl Direct Bilirubin 0.2 mg/dl Aspartate Amino Transf (AST/SGOT) 27 U/L Alanine Aminotransferase (ALT/SGPT) 29 U/L Alkaline Phosphatase 75 U/L Total Protein 6.2 gm/dl Albumin 2.4 gm/dl Bedside Glucose 160 mg/dl Assessment and Plan Pt is a 86 y/o female admitted w fever, sepsis (gram negative bacilli on blood cx), 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 LFTs normal, CT abd/pelvis, liver u/s unremarkable. Her last ERCP was in 2012 pancreatic duct stent placement. She is w/o s/s of RUQ abd pain, n/v. She is currently on Zosyn IV, ID service following. Repeat blood cx yesterday no growth, initial cx grew Ecoli. She was febrile again last night around 8PM. LFTs remain normal w/o any concerning GI symptoms. - ID service following, appreciate input on antibx use - No new GI plans, will sign off at this time. Attg add: I interviewed and examined pt, reviewed chart and labs. Pt with fever last night, but feels well this morning. Blood cx grew E coli sens Zosyn. Cont same abx; will defer duration of abx to ID service. Will sign off - please re-consult with questions.
[2017-02-04] MEDS ORDERED: WARFARIN SOD 5 MG TAB PO SCH (16:00)
[2017-02-04] MEDS ORDERED: POTASSIUM CHLORIDE 10 MEQ TABCR PO STA (17:06)
[2017-02-04] MEDS ORDERED: MAGNESIUM SULFATE 1GM / D5W 1 GM in PREMIXED IN D5W 100 ML IV ONE (17:30)
[2017-02-04] MEDS ORDERED: CEFTRIAXONE SOD INJ 2,000 MG in DEXTROSE 5% 50ML 50 ML IV SCH (18:00)
--- NOTE | 2017-02-04 18:10 | Progress Note ---
Internal Med Progress Note Date of Service: February 04, 2017. Provider Documentation: SUBJECTIVE: resting comfortably was nauseous yesterday had temp spike yesterday afebrile today nausea better today no sob OBJECTIVE: Vital Signs-as noted below Exam: General-alert and awake and oriented x 3 ENT-normal hearing Neck-no neck masses Lungs-cta b/l no wheezing or crackles Heart-s1 and s2 heard regular rate and rhythm no murmurs Abdomen-soft bowel sounds present non tender no distension Extremities- no present no erythema Neuro-alert and awake oriented x 3 moves extremities Lab data as noted below. ASSESSMENT & PLAN: SEPSIS Bacteremia with e.coli mostly recurrent cholangitis CT abd/pelvis in ER negative for acute findings initially started on iv Zosyn and daptomycin currently off of daptomycin Lft's unremarkable GI and ID on board and appreciate inputs lactic acid normalized hemodynamics stable had temp spike last night will monitor total 10-14 days of abx WEST Most likely prerenal due to poor PO intake and GI loss from vomiting ARB on hold on fluids resolved ELEVATED TROPONIN Most likely demand ischemia from tachycardia Asymptomatic, EKG does not show any acute ST changes will monitor ATRIAL FIBRILLATION, HX PACEMAKER rate uncontrolled likely due to dehydration / sepsis on Toprol xl inr 2.1 today Coumadin HTN To continue metoprolol, holding losartan due to WEST will restart losartan will monitor DM hgb a1c 6.5 08/2016 Holding oral agents and utilize SSI while hospitalized DVT PROPHYLAXIS on Coumadin with therapeutic INR CODE STATUS Full as per H and P DISPO possible d/c in am if stable pt/ot Vital Signs: Date Time Temp Pulse Resp B/P Pulse Ox O2 Delivery O2 Flow Rate FiO2 02/04/17 16:03 Room Air 02/04/17 15:59 36.8 75 18 156/78 96 Room Air 02/04/17 12:13 36.6 79 16 109/63 99 02/04/17 11:47 94 Room Air 02/04/17 08:11 36.5 76 18 115/69 94 02/04/17 08:00 Room Air 02/04/17 04:00 95 Room Air 2.0 02/04/17 03:00 37.0 74 15 126/68 95 Room Air 02/04/17 00:01 94 Room Air 2.0 02/03/17 23:29 36.8 77 22 120/73 94 Room Air 02/03/17 22:26 37.2 02/03/17 20:00 Room Air 02/03/17 19:34 38.0 98 18 131/67 93 Room Air Lab Results: Results Past 24 Hours Test 02/03/17 20:02 02/03/17 22:24 02/04/17 05:37 02/04/17 06:55 Range/Units Bedside Glucose 187 180 160 70-90 mg/dl White Blood Count 6.63 4.8-10.8 K/uL Red Blood Count 3.53 4.2-5.4 M/uL Hemoglobin 10.5 12.0-16.0 g/dL Hematocrit 31.3 37-47 % Mean Corpuscular Volume 88.7 80-100 fL Mean Corpuscular Hemoglobin 29.7 25-34 pg Mean Corpuscular Hemoglobin Concent 33.5 32-36 g/dl Platelet Count 148 130-400 K/uL Mean Platelet Volume 10.8 7.4-10.4 fL Neutrophils (%) (Auto) 63.4 % Lymphocytes (%) (Auto) 23.7 % Monocytes (%) (Auto) 11.5 % Eosinophils (%) (Auto) 0.9 % Basophils (%) (Auto) 0.2 % Neutrophils # (Auto) 4.21 1.4-6.5 K/uL Lymphocytes # (Auto) 1.57 1.2-3.4 K/uL Monocytes # (Auto) 0.76 0.11-0.59 K/uL Eosinophils # (Auto) 0.06 0-0.5 K/uL Basophils # (Auto) 0.01 0-0.2 K/uL RDW Standard Deviation 46.0 36.4-46.3 fL RDW Coefficient of Variation 14.0 11.5-14.5 % Immature Granulocyte % (Auto) 0.3 % Immature Granulocyte # (Auto) 0.02 0.00-0.02 K/uL Prothrombin Time 23.3 9.0-12.0 SECONDS Prothromb Time International Ratio 2.1 0.9-1.1 Sodium Level 144 136-145 mmol/L Potassium Level 3.3 3.5-5.1 mmol/L Chloride Level 107 98-107 mmol/L Carbon Dioxide Level 33 21-32 mmol/L Anion Gap 4.0 3-11 mmol/L Blood Urea Nitrogen 5 7-18 mg/dl Creatinine 0.66 0.60-1.20 mg/dl Est Creatinine Clear Calc Drug Dose 68.5 ml/min Estimated GFR () 93.4 Estimated GFR (Non- 80.6 BUN/Creatinine Ratio 8.2 10-20 Random Glucose 177 70-99 mg/dl Calcium Level 8.4 8.5-10.1 mg/dl Magnesium Level 1.7 1.8-2.4 mg/dl Total Bilirubin 0.5 0.2-1 mg/dl Direct Bilirubin 0.2 0-0.2 mg/dl Aspartate Amino Transf (AST/SGOT) 27 15-37 U/L Alanine Aminotransferase (ALT/SGPT) 29 12-78 U/L Alkaline Phosphatase 75 45-117 U/L Total Protein 6.2 6.4-8.2 gm/dl Albumin 2.4 3.4-5.0 gm/dl Test 02/04/17 11:20 02/04/17 15:48 Range/Units Bedside Glucose 148 151 70-90 mg/dl
[2017-02-04] MEDS ORDERED: ERTAPENEM IV 1 GM in SODIUM CHLOR 0.9% AD-VAN 50ML 50 ML IV SCH (19:00)
[2017-02-04] MEDS: METOPROLOL SUCC 50MG EXT REL TAB PO SCH (20:50)
[2017-02-05] VITALS (7 sets, daily range): BP systolic 129–152; BP diastolic 65–91; PULSE 66–79; TEMP 36.8–37.3; O2SAT 95–98
[2017-02-05 05:47] LABS: BASO % 0.3 %; BASO ABS # 0.02 K/uL (0-0.2); COMPLETE YES; EOS % 1.7 %; HEMATOCRIT 31.8 % (37-47); IG% 0.3 %; LYMPH % 31.1 %; LYMPH ABS # 1.79 K/uL (1.2-3.4); MEAN CELL VOLUME 88.1 fL (80-100); MEAN CORPUSCULAR HEMOGLOBIN 28.8 pg (25-34); MEAN CORPUSCULAR HGB CONC 32.7 g/dl (32-36); MEAN PLATELET VOLUME 10.2 fL (7.4-10.4); MONO % 8.7 %; NEUT % 57.9 %; PLATELET COUNT 189 K/uL (130-400); RED BLOOD COUNT 3.61 M/uL (4.2-5.4); WHITE BLOOD COUNT 5.76 K/uL (4.8-10.8)
[2017-02-05 06:39] LABS: BUN/CREATININE RATIO 9.3 (10-20); CALCIUM 8.4 mg/dl (8.5-10.1); CREATININE 0.67 mg/dl (0.60-1.20); POTASSIUM 4.2 mmol/L (3.5-5.1)
[2017-02-05] MEDS: INSULIN ASPART 100 UNITS/ML 3 ML PEN SC SCH ×2 (07:00→11:00)
[2017-02-05] MEDS: TIMOLOL MALEATE 0.5% OP SOLN 5 ML BTL OPB SCH (08:28)
[2017-02-05] MEDS: LOSARTAN POTASSIUM 50 MG TAB PO SCH (08:29)
[2017-02-05] MEDS: LIDODERM (LIDOCAINE) PATCH 5% TD SCH (08:30)
[2017-02-05] MEDS: CALCIUM 600MG + VIT D 400 IU TAB PO SCH (08:30)
[2017-02-05] MEDS: POLYETHYLENE (MIRALAX) 17 GM PACK PO SCH (08:30)
[2017-02-05] MEDS: PANTOprazole SOD 40 MG TAB PO SCH (08:30)
--- NOTE | 2017-02-05 10:27 | DIAGNOSTIC IMAGING REPORT ---
SINGLE VIEW CHEST CLINICAL HISTORY: PICC placement. FINDINGS: An AP, portable, upright chest radiograph is compared to study dated 02/01/2017. The examination is degraded by portable technique and patient rotation. A right PICC line has been placed. The tip of the catheter projects over the right atrium. A 2-lead cardiac pacemaker is unchanged in position and partially obscures the left upper chest. The heart is enlarged and there is atherosclerotic calcification of the thoracic aorta. The pulmonary vasculature is noncongested. Mild elevation of the right hemidiaphragm and chronic interstitial thickening are unchanged. No airspace consolidation or pleural effusion is identified. An accessory azygous fissure is incidentally noted. There is no pneumothorax. The skeletal structures are osteopenic. Degenerative change and scoliosis are noted in the thoracic spine. IMPRESSION: 1. A right PICC line has been placed. The tip of the catheter projects over the right atrium. This should be pulled back approximately 4 cm. 2. Cardiomegaly and cardiac pacemaker. There is no radiographic evidence of congestive failure. 3. There is no airspace consolidation or large pleural effusion. Electronically signed by: Oscar Judd M.D. 02/05/2017 10:25 AM Dictated Date/Time: 02/05/2017 10:23 AM
--- NOTE | 2017-02-05 11:53 | DIAGNOSTIC IMAGING REPORT ---
CHEST ONE VIEW PORTABLE CLINICAL HISTORY: pic placement /catheter pulled back COMPARISON STUDY: Study same date 10:31 AM FINDINGS: PICC catheter is now in the superior vena cava in good position. No evidence pneumothorax. IMPRESSION: PICC catheter is now in the superior vena cava in good position. No evidence pneumothorax. Electronically signed by: Hiram Barrow M.D. 02/05/2017 11:51 AM Dictated Date/Time: 02/05/2017 11:51 AM
[2017-02-05] MEDS ORDERED: ERTAPENEM IV 1 GM in SODIUM CHLOR 0.9% AD-VAN 50ML 50 ML IV SCH (14:00)
[2017-02-05] MEDS ORDERED: ERTA1INJ IV (14:34)
[2017-02-05] MEDS ORDERED: LCTX PO (14:34)
--- NOTE | 2017-02-05 14:36 | Discharge Instructions ---
Discharge Instructions Date of Service February 05, 2017. Admission Reason for Admission: Sepsis Discharge Discharge Diagnosis / Problem: SEPSIS, BACTEREMIA Discharge Goals Goal(s): Decrease discomfort, Improve function Activity Recommendations Activity Limitations: resume your previous activity . Instructions / Follow-Up Instructions / Follow-Up FOLLOWUP WITH FAMILY DOCTOR Brandee Cullen ON January AT 12:45PM Current Hospital Diet Patient's current hospital diet: Diabetes Type 2 Diet Discharge Diet Recommended Diet: Diabetes Type 2 Diet Pending Studies Studies pending at discharge: no Laboratory Results Hemoglobin A1c Test 02/02/17 04:30 Range/Units Estimated Average Glucose 120 mg/dl Hemoglobin A1c 5.8 H 4.5-5.6 % Medical Emergencies . Who to Call and When: Medical Emergencies: If at any time you feel your situation is an emergency, please call 911 immediately. . Non-Emergent Contact Non-Emergency issues call your: Primary Care Provider . . "Provider Documentation" section prepared by Ryland Yuan. . VTE Core Measure Inpt VTE Proph given/why not?: Warfarin (Coumadin)
[2017-02-05] MEDS ORDERED: CEFTRIAXONE SOD INJ 2000 MG in DEXTROSE 5% 50ML IV SCH (18:00)
--- NOTE | 2017-02-05 18:42 | Progress Note ---
Internal Med Progress Note Date of Service: February 05, 2017. Provider Documentation: SUBJECTIVE: resting comfortably eating fine no fever spikes no nausea or abdominal pain ok for discharge OBJECTIVE: Vital Signs-as noted below Exam: General-alert and awake and oriented x 3 ENT-normal hearing Neck-no neck masses Lungs-cta b/l no wheezing or crackles Heart-s1 and s2 heard regular rate and rhythm no murmurs Abdomen-soft bowel sounds present non tender no distension Extremities- no present no erythema Neuro-alert and awake oriented x 3 moves extremities Lab data as noted below. ASSESSMENT & PLAN: SEPSIS Bacteremia with e.coli mostly recurrent cholangitis CT abd/pelvis in ER negative for acute findings initially started on iv Zosyn and daptomycin currently off of daptomycin Lft's unremarkable GI and ID on board and appreciate inputs lactic acid normalized hemodynamics stable ID recommends iv invanz for 10 days s/p picc line d/pa home. WEST Most likely prerenal due to poor PO intake and GI loss from vomiting ARB on hold on fluids resolved ELEVATED TROPONIN Most likely demand ischemia from tachycardia Asymptomatic, EKG does not show any acute ST changes will monitor ATRIAL FIBRILLATION, HX PACEMAKER rate uncontrolled likely due to dehydration / sepsis on Toprol xl inr 2.1 Coumadin HTN To continue metoprolol, holding losartan due to WEST will restart losartan will monitor DM hgb a1c 6.5 08/2016 Holding oral agents and utilize SSI while hospitalized d/pa on home meds discharged home Vital Signs: Date Time Temp Pulse Resp B/P Pulse Ox O2 Delivery O2 Flow Rate FiO2 02/05/17 12:41 36.8 66 18 98 Room Air 02/05/17 12:12 36.8 66 18 129/65 98 02/05/17 08:00 Room Air 02/05/17 07:45 36.9 73 16 139/69 96 Room Air 02/05/17 04:00 97 Room Air 02/05/17 03:22 37.3 79 22 146/72 97 Room Air 02/05/17 00:12 37.2 79 20 152/91 95 Room Air 02/05/17 00:01 95 Room Air 02/04/17 20:00 Room Air 02/04/17 19:55 36.9 81 18 148/66 96 Room Air Lab Results: Results Past 24 Hours Test 02/04/17 20:17 02/05/17 05:21 Range/Units Bedside Glucose 197 70-90 mg/dl White Blood Count 5.76 4.8-10.8 K/uL Red Blood Count 3.61 4.2-5.4 M/uL Hemoglobin 10.4 12.0-16.0 g/dL Hematocrit 31.8 37-47 % Mean Corpuscular Volume 88.1 80-100 fL Mean Corpuscular Hemoglobin 28.8 25-34 pg Mean Corpuscular Hemoglobin Concent 32.7 32-36 g/dl Platelet Count 189 130-400 K/uL Mean Platelet Volume 10.2 7.4-10.4 fL Neutrophils (%) (Auto) 57.9 % Lymphocytes (%) (Auto) 31.1 % Monocytes (%) (Auto) 8.7 % Eosinophils (%) (Auto) 1.7 % Basophils (%) (Auto) 0.3 % Neutrophils # (Auto) 3.33 1.4-6.5 K/uL Lymphocytes # (Auto) 1.79 1.2-3.4 K/uL Monocytes # (Auto) 0.50 0.11-0.59 K/uL Eosinophils # (Auto) 0.10 0-0.5 K/uL Basophils # (Auto) 0.02 0-0.2 K/uL RDW Standard Deviation 44.7 36.4-46.3 fL RDW Coefficient of Variation 13.8 11.5-14.5 % Immature Granulocyte % (Auto) 0.3 % Immature Granulocyte # (Auto) 0.02 0.00-0.02 K/uL Sodium Level 145 136-145 mmol/L Potassium Level 4.2 3.5-5.1 mmol/L Chloride Level 109 98-107 mmol/L Carbon Dioxide Level 31 21-32 mmol/L Anion Gap 5.0 3-11 mmol/L Blood Urea Nitrogen 6 7-18 mg/dl Creatinine 0.67 0.60-1.20 mg/dl Est Creatinine Clear Calc Drug Dose 67.5 ml/min Estimated GFR () 92.9 Estimated GFR (Non- 80.2 BUN/Creatinine Ratio 9.3 10-20 Random Glucose 161 70-99 mg/dl Calcium Level 8.4 8.5-10.1 mg/dl Magnesium Level 2.0 1.8-2.4 mg/dl
--- NOTE | 2017-02-05 18:53 | Discharge Summary ---
Discharge Summary Date of Service February 05, 2017. 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 No acute process is identified. LIVER US: 1. No acute sonographic abnormality is identified in the right upper quadrant noting status post cholecystectomy. 2. Pneumobilia is again noted and likely related previous sphincterotomy. KUB: Mild gaseous distention of the colon without convincing evidence for a bowel obstruction. Consultations: GI ID Medication Reconciliation New Medications: Ertapenem Sodium (Invanz) 1 Gm Inj 1 GM IV DAILY for 10 Days, VIAL Lactobacillus Acidophilus (Lactinex) Tab 4 TAB PO TID for 12 Days, TAB Continued Medications: Calcium/Vitamin D (Os-Andre 500 Plus D) Tab 1 TAB PO DAILY, TAB Glipizide (Glipizide Er) 2.5 Mg Tab 1 DOSE PO DAILY for 90 Days, TAB 3 Refills Losartan Potassium (Cozaar) 50 Mg Tab 50 MG PO QAM, TAB Metformin Hcl (Glucophage) 1,000 Mg Tab 1000 MG PO BID, TAB Metoprolol Succ (Toprol Xl) (Toprol-Xl ) 100 Mg Tabcr 50 MG PO QPM, TAB Pantoprazole (Protonix) 40 Mg Tab 40 MG PO DAILY, #30 TAB Polyethylene Glycol 3350 (Miralax) 1 Pow Pow 17 GM PO QAM, #255 GM Timolol Maleate (Timolol 0.5% Oph Soln 15 Ml) 15 Ml Soln 1 DROP OPB BID Warfarin Sod (Jantoven) 5 Mg Tab 7.5 MG PO MWF, TAB Warfarin Sodium (Coumadin) 5 Mg Tab 5 MG PO 4XWK, TAB TAKE VALENTINA JONES, JAMEY, SAT Discontinued Medications: Ciprofloxacin Hcl (Cipro) 500 Mg Tab 500 MG PO BID, TAB Admission Information HPI (per Admitting provider): 86 year old female who presents to the ER with fever and vomiting. Patient has history of sclerosing cholangitis and recurrent cholangitis. Reports that when she develops a fever she will start a course of Cipro. Patient reports starting to get sick 4 days ago and she reports she started taking Cipro at that time. She reports typically she will improve once she starts the antibiotic however she has not. She reports fevers despite the use of Tylenol. The highest fever she had was 102. She reports chills and rigors. She reports a poor appetite and when she does eat she felt nauseous. She reports one episode of vomiting. She denies hematemesis or coffee ground emesis. She reports mild LLQ pain. No diarrhea. She reports generalized weakness. She denies cough and sputum production. No chest pain, shortness of breath, lightheadedness, dizziness, diaphoresis, or syncopal event. She denies dysuria or frequency but feels as though her urine output has been down. In the ER, patient was tachycardic in the 120s. She had a low grade fever of 37.6. POC Lactic acid 3.07. Creat 1.3 ( baseline ~ 0.9). CT abd/pelvis unremarkable. CXR clear. U/A pending. She was given IVF and Zosyn. Physical Exam (per Admitting): General Appearance: no apparent distress Head: normocephalic Eyes: normal inspection ENT: hearing grossly normal, + pertinent finding (dry mucous membranes) Neck: supple, no JVD Respiratory/Chest: lungs clear, normal breath sounds, no respiratory distress Cardiovascular: + tachycardia (regular rhythm), + pertinent finding (+1 edema BLLE) Abdomen/GI: normal bowel sounds, soft, + tenderness (LLQ, mild) Back: no CVA tenderness Extremities/Musculoskelatal: normal inspection, no calf tenderness Neurologic/Psych: no motor/sensory deficits, alert, normal mood/affect, oriented x 3 Skin: normal color, warm/dry Hospital Course SEPSIS Bacteremia with e.coli mostly recurrent cholangitis CT abd/pelvis in ER negative for acute findings initially started on iv Zosyn and daptomycin currently off of daptomycin Lft's unremarkable GI and ID on board and appreciate inputs lactic acid normalized hemodynamics stable ID recommends iv invanz for 10 days s/p picc line d/pa home. WEST Most likely prerenal due to poor PO intake and GI loss from vomiting ARB on hold on fluids resolved ELEVATED TROPONIN Most likely demand ischemia from tachycardia Asymptomatic, EKG does not show any acute ST changes will monitor ATRIAL FIBRILLATION, HX PACEMAKER rate uncontrolled likely due to dehydration / sepsis on Toprol xl inr 2.1 Coumadin HTN To continue metoprolol, holding losartan due to WEST will restart losartan will monitor DM hgb a1c 6.5 08/2016 Holding oral agents and utilize SSI while hospitalized d/ap on home meds discharged home Total time spent on discharge = 40MINUTES This includes examination of the patient, discharge planning, medication reconciliation, and communication with other providers. Discharge Instructions Discharge Instructions Date of Service February 05, 2017. Admission Reason for Admission: Sepsis Discharge Discharge Diagnosis / Problem: SEPSIS, BACTEREMIA Discharge Goals Goal(s): Decrease discomfort, Improve function Activity Recommendations Activity Limitations: resume your previous activity . Instructions / Follow-Up Instructions / Follow-Up FOLLOWUP WITH FAMILY DOCTOR Brandee Cullen ON January AT 12:45PM Current Hospital Diet Patient's current hospital diet: Diabetes Type 2 Diet Discharge Diet Recommended Diet: Diabetes Type 2 Diet Pending Studies Studies pending at discharge: no Laboratory Results Hemoglobin A1c Test 02/02/17 04:30 Range/Units Estimated Average Glucose 120 mg/dl Hemoglobin A1c 5.8 H 4.5-5.6 % Medical Emergencies . Who to Call and When: Medical Emergencies: If at any time you feel your situation is an emergency, please call 911 immediately. . Non-Emergent Contact Non-Emergency issues call your: Primary Care Provider . . "Provider Documentation" section prepared by Ryland Yuan. . VTE Core Measure Inpt VTE Proph given/why not?: Warfarin (Coumadin)
== END 2017-02-05 15:25 | disposition home health service (06) | DRG 872 ==
LOC: ENRESERVTM → ENRESERVDT → C.EDB 19:38 → C.2T 21:43
PROVIDERS: ADMIT Hospitalist; ATTEND Internal Medicine
PROC: 02HV33Z Insertion of Infusion Device into Superior Vena Cava, Percutaneous Approach (ICD-10-PCS; principal; 2017-02-05)
DX: A41.51 Sepsis due to Escherichia coli [E. coli] (principal); N39.0 Urinary tract infection, site not specified; I24.8 Other forms of acute ischemic heart disease; K83.0 Cholangitis; N17.9 Acute kidney failure, unspecified; I48.2 Chronic atrial fibrillation; K74.0 Hepatic fibrosis; E86.0 Dehydration; R00.0 Tachycardia, unspecified; E11.40 Type 2 diabetes mellitus with diabetic neuropathy, unspecified; E78.5 Hyperlipidemia, unspecified; I10 Essential (primary) hypertension; Z95.0 Presence of cardiac pacemaker; Z90.710 Acquired absence of both cervix and uterus; Z90.49 Acquired absence of other specified parts of digestive tract; Z88.8 Allergy status to other drugs, medicaments and biological substances; Z91.048 Other nonmedicinal substance allergy status; Z79.01 Long term (current) use of anticoagulants; Z79.899 Other long term (current) drug therapy

== ENCOUNTER → 2017-02-09 | Outpatient (CLI) | payer OTHER ==
[~2017-02-09] MED LIST changes: -BIMA0.01 OPB; -CPR/500 PO; +ERTA1INJ IV; +LCTX PO; -METO100T44 PO; +METO1TAB69 PO; -PRD/25 PO; -PRED-301 PO; -PRED10TA PO; +TMPOPS15 OPB; +WARF5TAB90 PO
[2017-02-09 11:59] LABS: HEMATOCRIT 35.5 % (37-47); MEAN CELL VOLUME 90.6 fL (80-100); MEAN CORPUSCULAR HEMOGLOBIN 29.6 pg (25-34); MEAN CORPUSCULAR HGB CONC 32.7 g/dl (32-36); MEAN PLATELET VOLUME 9.9 fL (7.4-10.4); PLATELET COUNT 318 K/uL (130-400); RED BLOOD COUNT 3.92 M/uL (4.2-5.4); WHITE BLOOD COUNT 6.54 K/uL (4.8-10.8)
[2017-02-09 12:11] LABS: ALT/SGPT 23 U/L (12-78); BLOOD UREA NITROGEN 12 mg/dl (7-18); BUN/CREATININE RATIO 15.2 (10-20); C-REACTIVE PROTEIN 2.93 mg/dl (0-0.29); CARBON DIOXIDE 29 mmol/L (21-32); CHLORIDE 104 mmol/L (98-107); CREATININE 0.77 mg/dl (0.60-1.20); GLUCOSE 145 mg/dl (70-99); POTASSIUM 4.4 mmol/L (3.5-5.1); SODIUM 140 mmol/L (136-145)
[2017-02-09 12:14] LABS: ALB/GLOB RATIO 0.7 (0.9-2); ALKALINE PHOSPHATASE 89 U/L (45-117); AST/SGOT 18 U/L (15-37)
[2017-02-09 12:17] LABS: CALCIUM 9.3 mg/dl (8.5-10.1)
== END | disposition home or self-care (01) ==
LOC: C.LABSPEC 11:44
PROVIDERS: ATTEND Internal Medicine Infectious Disease
DX: R78.81 Bacteremia (principal)

== ENCOUNTER → 2017-03-17 | Outpatient (CLI) | payer OTHER ==
[2017-03-17 12:06] LABS: BASO % 0.5 %; BASO ABS # 0.03 K/uL (0-0.2); COMPLETE YES; EOS % 6.9 %; HEMATOCRIT 40.2 % (37-47); IG% 0.2 %; LYMPH % 45.8 %; LYMPH ABS # 3.05 K/uL (1.2-3.4); MEAN CORPUSCULAR HEMOGLOBIN 28.2 pg (25-34); MEAN CORPUSCULAR HGB CONC 32.1 g/dl (32-36); MEAN PLATELET VOLUME 10.7 fL (7.4-10.4); MONO % 5.7 %; NEUT % 40.9 %; PLATELET COUNT 176 K/uL (130-400); RED BLOOD COUNT 4.57 M/uL (4.2-5.4); WHITE BLOOD COUNT 6.66 K/uL (4.8-10.8)
[2017-03-17 12:38] LABS: FERRITIN 57.4 ng/ml (8.0-388.0)
== END | disposition home or self-care (01) ==
LOC: C.LAB1850 11:14
PROVIDERS: ATTEND Internal Medicine Infectious Disease
DX: K83.0 Cholangitis (principal)

== ENCOUNTER 2017-08-28 11:16 | Inpatient (IN) | payer OTHER ==
[~2017-08-28] VITALS: Ht 165.1 cm; Wt 85.5 kg
[~2017-08-28 11:16] MED LIST changes: -ERTA1INJ IV; -LCTX PO; +METO100T44 PO; -METO1TAB69 PO
[2017-08-28] MEDS ORDERED: SODIUM CHLORIDE 0.9% 1000ML 1,000 ML IV STA (11:48)
[2017-08-28] MEDS ORDERED: PIPERACILLIN/TAZOBACTAM 4.5 GM/100ML D5W IV STA (11:48)
--- NOTE | 2017-08-28 11:54 | EMERGENCY ROOM VISIT NOTE ---
History Report prepared by Dorina: Isacc Mahajan Under the Supervision of: Dr. Jared Monk M.D. First contact with patient: 11:44 Chief Complaint: FEVER Stated Complaint: FEVER History of Present Illness The patient is an 86 year old female who presents to the Emergency Room with complaints of a constant fever beginning last night. The patient states that she had surgery to remove a tumor in her colon. She notes that since her surgery , she has been experiencing repeated infections. She reports that she was put on antibiotics for her most recent infection. The patient states that she began to experience black stool and vaginal itching as a side effect of the antibiotic. She notes that all of a sudden, her stool became normal and the itching disappeared. She reports that since her symptoms ended, she developed a fever. The patient states that she took a Tylenol an hour ago with relief of her symptoms. She also complains of fatigue. She denies any nausea, vomiting, abdominal pain, and urinary symptoms. She notes that her fever reached a high of 100.8 this morning. She notes that she has a history of atrial fibrillation and has a pacemaker placed, and is on Coumadin. Source of History: patient Onset: last night Position: other (global) Symptom Intensity: 100.8 Quality: other (fever) Timing: constant Associated Symptoms: No nausea, No vomiting, No abdominal pain, No urinary symptoms Note: She also complains of fatigue. Review of Systems See HPI for pertinent positives & negatives. A total of 10 systems reviewed and were otherwise negative. 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 Nurse's notes were reviewed and I agree with. Family History FH: diabetes mellitus FH: heart disease Social History Smoking Status: Never Smoker Alcohol Use: none Drug Use: none Marital Status: Housing Status: lives with family Occupation Status: retired Current/Historical Medications Scheduled Calcium/Vitamin D (Os-Andre 500 Plus D), 1 TAB PO DAILY Cefdinir (Omnicef), 300 MG PO HS Losartan Potassium (Cozaar), 50 MG PO BID Metformin Hcl (Glucophage), 1,000 MG PO BID Metoprolol Succ (Toprol Xl) (Toprol-Xl ), 50 MG PO QPM Pantoprazole (Protonix), 40 MG PO DAILY Polyethylene Glycol 3350 (Miralax), 17 GM PO QAM Timolol Maleate (Timolol 0.5% Oph Soln 15 Ml), 1 DROP OPB BID Warfarin Sodium (Coumadin), 5 MG PO HS Allergies Coded Allergies: Adhesives (Verified Adverse Reaction, Unknown, "it festers and gets sore" , 08/28/17) Bacitracin (Verified Adverse Reaction, Unknown, states "if I use it it won 't heal", 08/28/17) Lisinopril (Verified Adverse Reaction, Unknown, Cough, 08/28/17) Reported by PT. Neomycin (Verified Adverse Reaction, Unknown, states "if I use it it won' t heal", 08/28/17) Polymyxin B (Verified Adverse Reaction, Unknown, states "if I use it it won't heal", 08/28/17) Physical Exam Vital Signs Date Time Temp Pulse Resp B/P (MAP) Pulse Ox O2 Delivery O2 Flow Rate FiO2 08/28/17 13:30 71 20 178/80 96 08/28/17 11:26 37.1 95 18 125/80 97 Room Air Physical Exam General: Non-ill appearing 86 year old female in no acute distress. HEENT: Normal cephalic atraumatic. Pupils are equal round and reactive to light. Extraocular movements are intact. Oropharynx is pink with moist mucous membranes. No swelling of the mouth lips or tongue. Neck: Supple with a midline trachea. No meningeal signs or stiffness, no JVD or bruits. No Stridor. Chest: Clear to auscultation bilaterally. No wheezes or rhonchi. No increased work of breathing. Heart: regular rate and rhythm. Abdomen: Soft nontender, nondistended without rebound guarding or rigidity. Extremities: No cyanosis clubbing or edema. No calf tenderness or assymetry Spine/Back. Non tender to palpation. No CVA tenderness Skin: Good turgor without rashes. Neurologic exam: Cranial nerves two through 12 are intact. Motor and sensation are intact and symmetrical throughout. Medical Decision & Procedures ER Provider Diagnostic Interpretation: Radiology results as stated below per my review and radiologist interpretation: CHEST ONE VIEW PORTABLE FINDINGS: Left-sided dual-chamber pacemaker. The heart is normal in size. The lungs are clear. No pleural effusions. No pneumothorax. Incidental note is made of a right azygos lobe. IMPRESSION: No acute process. Electronically signed by: Trevon Patel M.D. 08/28/2017 12:33 PM Laboratory Results 08/28/17 12:15 Red Blood Count 4.24, Mean Corpuscular Volume 87.3, Mean Corpuscular Hemoglobin 30.2, Mean Corpuscular Hemoglobin Concent 34.6, Mean Platelet Volume 10.8, Neutrophils (%) (Auto) 67.9, Lymphocytes (%) (Auto) 21.3, Monocytes (%) (Auto) 8.7, Eosinophils (%) (Auto) 1.8, Basophils (%) (Auto) 0.2, Neutrophils # (Auto) 5.77, Lymphocytes # (Auto) 1.81, Monocytes # (Auto) 0.74, Eosinophils # (Auto) 0.15, Basophils # (Auto) 0.02 08/28/17 12:15 Test 08/28/17 12:15 08/28/17 12:25 08/28/17 13:30 White Blood Count 8.50 K/uL (4.8-10.8) Red Blood Count 4.24 M/uL (4.2-5.4) Hemoglobin 12.8 g/dL (12.0-16.0) Hematocrit 37.0 % (37-47) Mean Corpuscular Volume 87.3 fL (80-100) Mean Corpuscular Hemoglobin 30.2 pg (25-34) Mean Corpuscular Hemoglobin Concent 34.6 g/dl (32-36) Platelet Count 157 K/uL (130-400) Mean Platelet Volume 10.8 fL (7.4-10.4) Neutrophils (%) (Auto) 67.9 % Lymphocytes (%) (Auto) 21.3 % Monocytes (%) (Auto) 8.7 % Eosinophils (%) (Auto) 1.8 % Basophils (%) (Auto) 0.2 % Neutrophils # (Auto) 5.77 K/uL (1.4-6.5) Lymphocytes # (Auto) 1.81 K/uL (1.2-3.4) Monocytes # (Auto) 0.74 K/uL (0.11-0.59) Eosinophils # (Auto) 0.15 K/uL (0-0.5) Basophils # (Auto) 0.02 K/uL (0-0.2) RDW Standard Deviation 46.2 fL (36.4-46.3) RDW Coefficient of Variation 14.5 % (11.5-14.5) Immature Granulocyte % (Auto) 0.1 % Immature Granulocyte # (Auto) 0.01 K/uL (0.00-0.02) Prothrombin Time 25.7 SECONDS (9.0-12.0) Prothromb Time International Ratio 2.5 (0.9-1.1) Activated Partial Thromboplast Time 37.9 SECONDS (21.0-31.0) Partial Thromboplastin Ratio 1.5 Anion Gap 7.0 mmol/L (3-11) Est Creatinine Clear Calc Drug Dose 49.3 ml/min Estimated GFR () 67.6 Estimated GFR (Non- 58.3 BUN/Creatinine Ratio 16.4 (10-20) Calcium Level 9.0 mg/dl (8.5-10.1) Total Bilirubin 0.5 mg/dl (0.2-1) Direct Bilirubin 0.1 mg/dl (0-0.2) Aspartate Amino Transf (AST/SGOT) 21 U/L (15-37) Alanine Aminotransferase (ALT/SGPT) 22 U/L (12-78) Alkaline Phosphatase 73 U/L (45-117) Total Protein 7.3 gm/dl (6.4-8.2) Albumin 3.5 gm/dl (3.4-5.0) Lipase 244 U/L (73-393) Bedside Lactic Acid Venous 2.05 mmol/L (0.90-1.70) Urine Color YELLOW Urine Appearance CLEAR (CLEAR) Urine pH 5.0 (4.5-7.5) Urine Specific [place] 1.025 (1.000-1.030) Urine Protein NEG (NEG) Urine Glucose (UA) NEG (NEG) Urine Ketones NEG (NEG) Urine Occult Blood TRACE (NEG) Urine Nitrite NEG (NEG) Urine Bilirubin NEG (NEG) Urine Urobilinogen NEG (NEG) Urine Leukocyte Esterase SMALL (NEG) Urine RBC 0-4 /hpf (0-4) Urine WBC 1-5 /hpf (0-5) Urine Epithelial Cells 20-30 /lpf (0-5) Urine Bacteria 1+ (NEG) Urine Mucus PRESENT (NONE PRSENT) Laboratory studies as stated above per my review. Medications Administered Medications (Trade) Dose Ordered Sig/Anjana Route Start Time Stop Time Status Last Admin Dose Admin Sodium Chloride 1,000 ml @ 999 mls/hr Q1H1M STAT IV 08/28/17 11:48 08/28/17 12:48 DC 08/28/17 11:48 999 MLS/HR Piperacillin Sod/ Tazobactam Sod (Zosyn Iv) 4.5 gm NOW STAT IV 08/28/17 11:48 08/28/17 11:54 DC 08/28/17 13:30 4.5 GM ECG Indication: weakness Rate (beats per minute): 85 Rhythm: normal sinus Findings: LBBB, no acute ischemic change Comparison ECG Date: 02/03/2017 Change: no significant change ED Course 1145: Past medical records reviewed. The patient was evaluated in room A12, and a complete history and physical examination were performed. 1148: Piperacillin Sod/Tazobactam Sod 4.5gm IV, Sodium Chloride 1000 ml @ 999 mls/hr IV 1321: I reevaluated and updated the patient. She is resting comfortably and receiving antibiotics. 1329: Upon reevaluation, the patient is stable. I discussed the results and treatment plan with the patient. She verbalized agreement of the treatment plan. The patient will be evaluated for further management. Medical Decision Differential diagnoses include: sepsis, cholangitis, electrolyte/metabolic abnormality, cardiac disease, and dehydration. This patient comes in as described above. She is placed in room a 12. She is here for treatment and evaluation of fever that started last night. She had MAXIMUM TEMPERATURE 100.8 and felt warm. She does have history of PE did infections of recurrent cholangitis and she's on antibiotic prophylaxis for this. She was told by infectious disease doctor if she ever has a fever, she should come to the ER. She took Tylenol just prior to arrival and the temperature did come down. She looks well on exam and her abdomen is nontender. She's had no other focus of infection. IV access established blood cultures were obtained. I did give her 1 L IV normal saline bolus as well as Zosyn 4.5 g IV for antibiotic coverage. She's had this before for similar presentations. Her chest x-ray was unremarkable white count is not elevated however lactic acid is mildly elevated just above 2 here. She's hadno acute electrolyte or metabolic abnormality. She has nothing to suggest influenza. I do think she needs to be observed/admitted for further treatment and evaluation given her history of recurrent cholangitis. I have consulted Dr. Yuan to see her in the ER. Medication Reconcilliation Current Medication List: was personally reviewed by me Blood Pressure Screening Patient's blood pressure: Elevated blood pressure Referred to hospitalist Consults Time Called: 1326 [facility] Returned Call: [phone] Discussed the patient's case. The patient will be evaluated for further management. Impression Primary Impression: Febrile illness Additional Impression: Cholangitis Scribe Attestation The scribe's documentation has been prepared under my direction and personally reviewed by me in its entirety. I confirm that the note above accurately reflects all work, treatment, procedures, and medical decision making performed by me. Departure Information Dispostion Being Evaluated By Hospitalist Referrals Brandee Forman M.D. (PCP) Patient Instructions [facility] Problem Qualifiers
[2017-08-28 12:30] LABS: BASO % 0.2 %; BASO ABS # 0.02 K/uL (0-0.2); COMPLETE YES; EOS % 1.8 %; IG% 0.1 %; LYMPH % 21.3 %; LYMPH ABS # 1.81 K/uL (1.2-3.4); MEAN CELL VOLUME 87.3 fL (80-100); MEAN CORPUSCULAR HEMOGLOBIN 30.2 pg (25-34); MEAN CORPUSCULAR HGB CONC 34.6 g/dl (32-36); MEAN PLATELET VOLUME 10.8 fL (7.4-10.4); MONO % 8.7 %; NEUT % 67.9 %; PLATELET COUNT 157 K/uL (130-400); RED BLOOD COUNT 4.24 M/uL (4.2-5.4)
[2017-08-28] MEDS ORDERED: CEFD1CAP14 PO (12:34)
--- NOTE | 2017-08-28 12:35 | DIAGNOSTIC IMAGING REPORT ---
CHEST ONE VIEW PORTABLE HISTORY: Atypical CHEST PAIN COMPARISON: Chest 02/05/2017. FINDINGS: Left-sided dual-chamber pacemaker. The heart is normal in size. The lungs are clear. No pleural effusions. No pneumothorax. Incidental note is made of a right azygos lobe. IMPRESSION: No acute process. Electronically signed by: Trevon Patel M.D. 08/28/2017 12:33 PM Dictated Date/Time: 08/28/2017 12:32 PM
[2017-08-28 12:43] LABS: INR 2.5 (0.9-1.1); PARTIAL THROMBOPLASTIN RATIO 1.5; PROTHROMBIN TIME (PATIENT) 25.7 SECONDS (9.0-12.0)
[2017-08-28 12:57] LABS: BUN/CREATININE RATIO 16.4 (10-20); CREATININE 0.9 mg/dl (0.60-1.20)
[2017-08-28 13:59] LABS: MANUAL MICROSCOPIC REQUIRED? YES; URINE APPEARANCE CLEAR (CLEAR); URINE BILIRUBIN NEG (NEG); URINE COLOR YELLOW; URINE NITRITE NEG (NEG); URINE SPECIFIC GRAVITY 1.025 (1.000-1.030); UROBILINOGEN NEG (NEG)
[2017-08-28 14:04] LABS: REVIEW REQ? NO
[2017-08-28 14:12] LABS: URINE MUCUS PRESENT (NONE PRSENT)
[2017-08-28 14:13] LABS: URINE BACTERIA 1+ (NEG); URINE RBC 0-4 /hpf (0-4)
[2017-08-28] MEDS ORDERED: CZR25 PO (15:11)
[2017-08-28 15:30] VITALS: O2SAT 97
[2017-08-28 16:38] VITALS: BP 172/84; PULSE 76; TEMP 36.6; O2SAT 95
[2017-08-28 17:00] VITALS: BP 172/84; PULSE 76; TEMP 36.6; Ht 165.1 cm; Wt 85.5 kg
[2017-08-28 17:44] VITALS: BP 187/72
[2017-08-28] MEDS ORDERED: CLONIDINE HCL 0.1 MG TAB PO PRN (17:45)
[2017-08-28] MEDS ORDERED: ERTAPENEM CONSULT ACTIVE PRN (17:45)
[2017-08-28] MEDS ORDERED: ERTAPENEM IV 1 GM in SODIUM CHLOR 0.9% AD-VAN 50ML 50 ML IV SCH (18:00)
[2017-08-28] MEDS: SODIUM CHLORIDE 0.9% 1000ML 1,000 ML IV SCH (18:03)
[2017-08-28] MEDS: INSULIN ASPART 100 UNITS/ML 3 ML PEN SC SCH ×2 (18:08→21:00)
[2017-08-28] MEDS: LOSARTAN POTASSIUM 25 MG TAB PO SCH (18:19)
--- NOTE | 2017-08-28 18:24 | HISTORY & PHYSICAL EXAMINATION ---
DATE OF ADMISSION: 08/28/2017 CHIEF COMPLAINT: Fever, possible recurrent cholangitis. 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 The patient is chronically on Omnicef 300 mg p[address] daily [address] Dr[address] Guaman to prevent recurrent cholangitis. The patient states since started on Omnicef she is doing okay, but last couple of days ago she felt weak and tired, flu-like symptoms and last night she had a fever of 100.8 and also she had fever in the morning when she decided to come to the ER. Denies any abdominal pain, no nausea, no sweating. Currently resting comfortably and hemodynamically stable, currently afebrile. Denies any headaches. No blurred visions, had some headache yesterday but no headache now, no runny nose, no tinnitus. No sore throat, no difficulty swallowing. No cough, no chest pain, no shortness of breath, no abdominal pain, no nausea, no vomiting. Normal bowel and bladder movements. Appetite is okay. No rash, no swelling of the legs. Ambulatory status is fine at home. The patient was told that whenever she has fever to come to the ER because of history of recurrent cholangitis. 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 After that the common bile duct is thickened and then she is getting infections frequently. ALLERGIES: TAPES AND LISINOPRIL AND NEOSPORIN. PAST MEDICAL HISTORY: As mentioned above. PAST SURGICAL HISTORY: History of hysterectomy, status post cholecystectomy, CT-guided biopsy, excision of the bile duct tumor extrahepatic, anastomosis Jenni En Y extrahepatic ducts and GI tract, dual chamber pacemaker insertion, endoscopic ultrasound. MEDICATIONS: The patient is on losartan 25 mg p.o. b.i.d. Omnicef 300 mg p.o. daily, clotrimazole as needed, Toprol-XL 50 mg p.o. daily, Protonix 40 mg p.o. daily, Timoptic 0.5% ophthalmic solution, calcium plus vitamin D 1 tablet b.i.d., miralax 17 grams daily p.r.n., vitamin B12 1000 mcg p.o. daily, Coumadin 5 mg p.o. daily, metformin 1000 mg p.o. b.i.d. FAMILY HISTORY: Significant for father, mother and brother has heart disorder, daughter has hypothyroidism. SOCIAL HISTORY: No tobacco abuse. No alcohol abuse. No drug abuse. Lives with her . REVIEW OF SYMPTOMS: As per HPI. Rest of review of systems negative. PHYSICAL EXAMINATION: GENERAL: The patient is old and frail, not in distress. VITAL SIGNS: Temperature 37.1, pulse 71, respiratory rate 20, blood pressure 178/80, oxygen 96% room air. HEENT: No pallor, no icterus. Pupils equal, round, and reactive to light. NECK: No JVD, no neck masses, no carotid bruits. CARDIOVASCULAR: S1, S2 heard, regular rate and rhythm, no murmur, no gallop. RESPIRATORY SYSTEM: Normal AP diameter. No accessory muscle use. No wheezing, no crackles. ABDOMEN: Soft, bowel sounds present. Nontender. No distention. CENTRAL NERVOUS SYSTEM: Cranial nerves II-XII are grossly intact. Nonfocal. EXTREMITIES: No edema, no erythema. LABORATORY DATA: WBC 8.5, hemoglobin 12.8, hematocrit 37, platelets 157. Sodium 137, potassium 4, chloride 104, bicarbonate 26, BUN 15, creatinine 0.9, serum glucose 138. Point of care lactic acid 2.05. Calcium 9, total bilirubin 0.5, direct bilirubin 0.1, AST 21, ALT 22, alkaline phosphatase 73, lipase 244. Urinalysis shows trace leukocyte esterase. PT 25.7, INR 2.5, PTT 37.9. Chest x-ray, no acute process seen. ASSESSMENT AND PLAN: This is an 86-year-old female who presents with possible recurrent cholangitis. 1. Possible recurrent cholangitis. The patient has recurrent cholangitis after surgery done for possible questionable common bile duct mass. She has sclerosing cholangitis. she was placed on suppressive antibiotic, Omnicef 300 mg [address] daily [address] Dr[address] Guaman. She had a fever last night. There is no leukocytosis. Hemodynamically stable currently. No nausea, asymptomatic. We will empirically start on IV Invanz. Follow the blood cultures and urine cultures. Follow the labs. Follow the abdominal ultrasound. Consult GI for further recommendations. Consult ID for further recommendations. Monitor on medical floor. 2. History of atrial fibrillation, history of sinus node dysfunction status post pacemaker, on Toprol-XL which we will continue and on Coumadin we will follow the PT/INR. 3. History of diabetes. Hold home po meds.Lantus and insulin sliding scale. Follow the blood sugars while in the hospital. 4. History of gastroesophageal reflux disease. Continue Protonix. 5. History of hypertension. Continue Toprol-XL and losartan. Follow the blood pressure. 6. Deep venous thrombosis prophylaxis, on Coumadin. Follow the INR. DISPOSITION: Admit to medical floor. Expect discharge home and follow with family doctor. Level 1 full code. MTDD
[2017-08-28 19:15] VITALS: BP 137/79; PULSE 76
[2017-08-28] MEDS ORDERED: METOPROLOL SUCC 50MG EXT REL TAB PO SCH (21:00)
[2017-08-28] MEDS ORDERED: WARFARIN SOD 5 MG TAB PO SCH (21:00)
[2017-08-28] MEDS: TIMOLOL MALEATE 0.5% OP SOLN 5 ML BTL OPB SCH (21:12)
[2017-08-28] MEDS: INSULIN GLARGINE SOLOSTAR 100 UNITS/ML 3 ML PEN SC SCH (21:17)
[2017-08-28 23:05] VITALS: BP 150/74; PULSE 91; TEMP 36.9; O2SAT 96
--- NOTE | 2017-08-29 05:27 | DIAGNOSTIC IMAGING REPORT ---
GALLBLADDER-ABD LIMITED CLINICAL HISTORY: 86 years-old Female presenting with CHOLANGITIS? CBD OBSTRUCTION?. TECHNIQUE: Real-time grayscale and limited color Doppler ultrasound imaging of the abdomen limited to the right upper quadrant was performed. COMPARISON: 02/02/[address] from 02/01/2017. FINDINGS: Pancreas: Visualized portions of the pancreatic head and body normal. Liver: Hyperechogenic parenchyma with heterogeneous echotexture, likely indicating fibrosis or steatosis. The liver measures 14.3 cm in maximal sagittal dimension. No sonographic evidence of hepatic mass. Hyperechogenic foci within the hepatic parenchyma may correlate to previously noted pneumobilia. Main portal vein patent with normal directional flow. Biliary: No intrahepatic biliary ductal dilatation. Common bile duct measures up to 2 mm in diameter. Gallbladder: Surgically absent. Right kidney: Normal in appearance. No hydronephrosis. Ascites: None. IMPRESSION: 1. Hyperechogenic liver parenchyma with heterogeneous echotexture could represent hepatic fibrosis/cirrhosis or steatosis. 2. No intrahepatic or extrahepatic biliary ductal dilatation. 3. Pneumobilia may be present as seen on prior CT. 4. These findings do not exclude cholangitis. Electronically signed by: Teja Epstein M.D. 08/29/2017 5:25 AM Dictated Date/Time: 08/29/2017 5:22 AM
[2017-08-29 06:09] LABS: BASO % 0.3 %; BASO ABS # 0.02 K/uL (0-0.2); COMPLETE YES; EOS % 3.6 %; HEMATOCRIT 34.5 % (37-47); IG% 0.2 %; LYMPH % 34.7 %; MEAN CORPUSCULAR HEMOGLOBIN 29.1 pg (25-34); MEAN PLATELET VOLUME 11.2 fL (7.4-10.4); MONO % 11.4 %; NEUT % 49.8 %; PLATELET COUNT 139 K/uL (130-400); RED BLOOD COUNT 3.92 M/uL (4.2-5.4); WHITE BLOOD COUNT 6.06 K/uL (4.8-10.8)
[2017-08-29 06:15] LABS: INR 2.3 (0.9-1.1); PROTHROMBIN TIME (PATIENT) 23.5 SECONDS (9.0-12.0)
[2017-08-29] MEDS: SODIUM CHLORIDE 0.9% 1000ML 1,000 ML IV SCH (06:25)
[2017-08-29 06:44] LABS: BUN/CREATININE RATIO 13.1 (10-20); CALCIUM 8.3 mg/dl (8.5-10.1); CREATININE 0.75 mg/dl (0.60-1.20); MAGNESIUM 1.8 mg/dl (1.8-2.4); POTASSIUM 3.8 mmol/L (3.5-5.1)
[2017-08-29 07:13] VITALS: BP 153/83; PULSE 68; TEMP 37; O2SAT 93
[2017-08-29] MEDS: LOSARTAN POTASSIUM 25 MG TAB PO SCH (08:13)
[2017-08-29] MEDS: TIMOLOL MALEATE 0.5% OP SOLN 5 ML BTL OPB SCH (08:15)
[2017-08-29] MEDS: INSULIN ASPART 100 UNITS/ML 3 ML PEN SC SCH ×2 (08:41→12:55)
[2017-08-29] MEDS: INSULIN GLARGINE SOLOSTAR 100 UNITS/ML 3 ML PEN SC SCH (08:42)
[2017-08-29] MEDS ORDERED: POLYETHYLENE (MIRALAX) 17 GM PACK PO SCH (09:00)
[2017-08-29] MEDS ORDERED: PANTOprazole SOD 40 MG TAB PO SCH (09:00)
[2017-08-29] MEDS ORDERED: CALCIUM 600MG + VIT D 400 IU TAB PO SCH (09:00)
--- NOTE | 2017-08-29 13:30 | Discharge Instructions ---
Discharge Instructions Date of Service Aug 29, 2017. Admission Reason for Admission: Cholangitis Discharge Discharge Diagnosis / Problem: NO EVIDENCE OF CHOLANGITIS /FEVER RESOLVED Discharge Goals Goal(s): Decrease discomfort, Improve disease control, Diagnostic testing, Therapeutic intervention Activity Recommendations Activity Limitations: resume your previous activity . Instructions / Follow-Up Instructions / Follow-Up HOSPITAL FOLLOW UP WITH 08/31/2017 11:00 AM Brandee Forman MD General Internal Medicine [facility] Current Hospital Diet Patient's current hospital diet: Diabetes Type 2 Diet, Low Fat Diet Discharge Diet Recommended Diet: Diabetes Type 2 Diet, Low Fat Diet Pending Studies Studies pending at discharge: no Medical Emergencies . Who to Call and When: Medical Emergencies: If at any time you feel your situation is an emergency, please call 911 immediately. . Non-Emergent Contact Non-Emergency issues call your: Primary Care Provider . . "Provider Documentation" section prepared by Jerri Acevedo. . VTE Core Measure Inpt VTE Proph given/why not?: Warfarin (Coumadin)
[2017-08-29 13:35] VITALS: BP 153/83; PULSE 68; TEMP 37; O2SAT 93
--- NOTE | 2017-08-29 13:44 | Discharge Summary ---
Discharge Summary Date of Service Aug 29, 2017. Discharge Summary Admission Date: Aug 28, 2017 at 15:02 Discharge Date: Aug 29, 2017 Discharge Disposition: Home Principal Diagnosis: NO EVIDENCE OF CHOLANGITIS /FEVER RESOLVED Procedures: GALL BLADDER ULTRASOUND : IMPRESSION: 1. Hyperechogenic liver parenchyma with heterogeneous echotexture could represent hepatic fibrosis/cirrhosis or steatosis. 2. No intrahepatic or extrahepatic biliary ductal dilatation. 3. Pneumobilia may be present as seen on prior CT. 4. These findings do not exclude cholangitis. CHEST XRAY PORTABLE : no active disease Consultations: INFECTIOUS DISEASE -DR MELISSA IRELAND GI Medication Reconciliation Continued Medications: Calcium/Vitamin D (Os-Andre 500 Plus D) Tab 1 TAB PO DAILY, TAB Cefdinir (Omnicef) 300 Mg Cap 300 MG PO HS, CAP Losartan Potassium (Losartan Potassium) 25 Mg Tab 25 MG PO BID, #60 Metformin Hcl (Glucophage) 1,000 Mg Tab 1000 MG PO BID, TAB Metoprolol Succ (Toprol Xl) (Toprol-Xl ) 100 Mg Tabcr 50 MG PO QPM, TAB Pantoprazole (Protonix) 40 Mg Tab 40 MG PO DAILY, #30 TAB Polyethylene Glycol 3350 (Miralax) 1 Pow Pow 17 GM PO QAM, #255 GM Timolol Maleate (Timolol 0.5% Oph Soln 15 Ml) 15 Ml Soln 1 DROP OPB BID Warfarin Sodium (Coumadin) 5 Mg Tab 5 MG PO HS, TAB Referrals At Discharge Follow up Referrals: Physician Referral - 08/31/17 with Brandee Forman M.D. Admission Information HPI (per Admitting provider): DATE OF ADMISSION: 08/28/2017 CHIEF COMPLAINT: Fever, possible recurrent cholangitis. 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 The patient is chronically on Omnicef 300 mg p[address] daily [address] Dr[address] Guaman to prevent recurrent cholangitis. The patient states since started on Omnicef she is doing okay, but last couple of days ago she felt weak and tired, flu-like symptoms and last night she had a fever of 100.8 and also she had fever in the morning when she decided to come to the ER. Denies any abdominal pain, no nausea, no sweating. Currently resting comfortably and hemodynamically stable, currently afebrile. Denies any headaches. No blurred visions, had some headache yesterday but no headache now, no runny nose, no tinnitus. No sore throat, no difficulty swallowing. No cough, no chest pain, no shortness of breath, no abdominal pain, no nausea, no vomiting. Normal bowel and bladder movements. Appetite is okay. No rash, no swelling of the legs. Ambulatory status is fine at home. The patient was told that whenever she has fever to come to the ER because of history of recurrent cholangitis. 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 After that the common bile duct is thickened and then she is getting infections frequently. ALLERGIES: TAPES AND LISINOPRIL AND NEOSPORIN. PAST MEDICAL HISTORY: As mentioned above. PAST SURGICAL HISTORY: History of hysterectomy, status post cholecystectomy, CT-guided biopsy, excision of the bile duct tumor extrahepatic, anastomosis Jenni En Y extrahepatic ducts and GI tract, dual chamber pacemaker insertion, endoscopic ultrasound. MEDICATIONS: The patient is on losartan 25 mg p.o. b.i.d. Omnicef 300 mg p.o. daily, clotrimazole as needed, Toprol-XL 50 mg p.o. daily, Protonix 40 mg p.o. daily, Timoptic 0.5% ophthalmic solution, calcium plus vitamin D 1 tablet b.i.d., miralax 17 grams daily p.r.n., vitamin B12 1000 mcg p.o. daily, Coumadin 5 mg p.o. daily, metformin 1000 mg p.o. b.i.d. FAMILY HISTORY: Significant for father, mother and brother has heart disorder, daughter has hypothyroidism. SOCIAL HISTORY: No tobacco abuse. No alcohol abuse. No drug abuse. Lives with her . Physical Exam (per Admitting): REVIEW OF SYMPTOMS: As per HPI. Rest of review of systems negative. PHYSICAL EXAMINATION: GENERAL: The patient is old and frail, not in distress. VITAL SIGNS: Temperature 37.1, pulse 71, respiratory rate 20, blood pressure 178/80, oxygen 96% room air. HEENT: No pallor, no icterus. Pupils equal, round, and reactive to light. NECK: No JVD, no neck masses, no carotid bruits. CARDIOVASCULAR: S1, S2 heard, regular rate and rhythm, no murmur, no gallop. RESPIRATORY SYSTEM: Normal AP diameter. No accessory muscle use. No wheezing, no crackles. ABDOMEN: Soft, bowel sounds present. Nontender. No distention. CENTRAL NERVOUS SYSTEM: Cranial nerves II-XII are grossly intact. Nonfocal. EXTREMITIES: No edema, no erythema. Hospital Course no fever or chills , feels absolutely fine no abdominal pain or nausea has been tolerating low fat /type 2 DM diet well wants to go home today if possible PHYSICAL EXAM : GEN ; well appearing female, no sign of distress HEENT : sclera non icteric ,PERRLA/EOMI normal oral mucosa, no erythema or exudate noted in oropharynx LUNGS ; clear to auscultate .no wheeze or rales HEART : regular S1/S2 , No JVD, no carotid bruit , no lower ext edema ABDOMEN : soft, non tender , no RUQ tenderness, no rebound , bowel sound active EXT : no rash or deformity NEURO: AAO x3, no focal neurological distress Last 8 Hrs Date Time Temp Pulse Resp B/P (MAP) Pulse Ox O2 Delivery O2 Flow Rate FiO2 08/29/17 13:35 37.0 68 18 93 Room Air 08/29/17 07:45 Room Air 08/29/17 07:13 37.0 68 18 153/83 (106) 93 Room Air ASSESSMENT AND PLAN : FEVER /HX OF RECURRENT CHOLANGITIS : -no evidence of cholangitis this admission presented to ER with subjective feeling of fever , no abdominal pain or nausea episodes of chills remains afebrile during this hospital stay , normal white count , normal LFT blood cultures obtained in ED -reports pending Liver USG no convincing evidence of cholangitis pt been tolerating diet well , without pain or discomfort will D/C IV Invanz pt will be resumed her chronic suppressive antibiotic therapy Omnicef 300 mg HS pt follows with Dr Guaman infectious disease as out pt pt has hx of recurrent cholangitis /E coli ESBL bacteremia s/p laparoscopic cholecystectomy By Dr Francis in 04/29/2013 in [facility] Pre OP ERCP on : left and rt hepatic duct and all intrahepatic biliary ducts were dilated . localized stricture noted on CBD Cytology of CBD benign flat sheets of ductal cells were seen , no Malignancy noted last admission with cholangitis on 02/01/2017 stable to be discharged home with PO Omnicef Arrangements made for Hospital follow up with her Family physician in 2 days on 08/31/17 POSSIBLE UTI : UA + leukocyte esterase , + occult blood ; Urine epithelial cell , bacteria + possible cause of low grade fever at home pt denies of any urinary symptoms of dysuria , increased frequency , suprapubic discomfort urine culture ordered -report pending pt is already on adequate coverage with Omnicef GERD: denies of any concern of acid reflux of heart burn EGD on 06/26/16 : normal appearing esophagus , evidence of gastritis in stomach -biopsy obtained , normal appearing Duodenum PATHOLOGY : BIOPSY OF STOMACH : chronic gastritis with moderately activity ( acute inflammation ) Immunostain for Helicobacter Pylori -negative GE JUNCTION BIOPSY : 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 ) no Dysplasia noted , reactive cellular change noted -no complain of dark stool , blood per rectum cont Protonix TYPE 2 DM ; very well controlled recent HbA1c 08/20/17 -5.8 resume Metformin on discharge HX OF CHRONIC AFIB ON COUMADIN : rate and rhythm controlled on Beta jackelin chronic anticoagulation with Coumadin HX OF SICK SINUS SYNDROME : s/p pace maker placement FULL CODE DVT PROPHYLAXIS :on Coumadin INR therapeutic DISPOSITION : stable to be discharged home today Medicine follow up with Dr Heraclio Forman Total time spent on discharge = 40 mins This includes examination of the patient, discharge planning, medication reconciliation, and communication with other providers. Discharge Instructions Discharge Instructions Date of Service Aug 29, 2017. Admission Reason for Admission: Cholangitis Discharge Discharge Diagnosis / Problem: NO EVIDENCE OF CHOLANGITIS /FEVER RESOLVED Discharge Goals Goal(s): Decrease discomfort, Improve disease control, Diagnostic testing, Therapeutic intervention Activity Recommendations Activity Limitations: resume your previous activity . Instructions / Follow-Up Instructions / Follow-Up HOSPITAL FOLLOW UP WITH 08/31/2017 11:00 AM Brandee Forman MD General Internal Medicine [facility] Diet Patient's current hospital diet: Diabetes Type 2 Diet, Low Fat Diet Discharge Diet Recommended Diet: Diabetes Type 2 Diet, Low Fat Diet Pending Studies Studies pending at discharge: no Medical Emergencies . Who to Call and When: Medical Emergencies: If at any time you feel your situation is an emergency, please call 911 immediately. . Non-Emergent Contact Non-Emergency issues call your: Primary Care Provider . . "Provider Documentation" section prepared by Jerri Acevedo. . VTE Core Measure Inpt VTE Proph given/why not?: Warfarin (Coumadin) Additional Copies To Brandee Forman M.D. Bell, Evan T MD
--- NOTE | 2017-08-29 14:33 | Medical Consult ---
Consultation Date of Consultation: Aug 29, 2017. Attending Physician: Jerri Acevedo M.D. Reason for Consultation: recurrent cholangitis History of Present Illness 86-year-old female with complicated past medical history including atrial fibrillation status post pacemaker,Type 2 diabetes mellitus, who has a history sclerosing cholangitis and has had multiple episodes of gram-negative sepsis related to recurrent cholangitis. She was started on cefdinir to prevent recurrence, and patient has been doing quite well without evidence of recurrent infection. Several days ago, patient noted the onset of recurrent fever and chills associated with mild cough. Apparently several family members also ill with respiratory tract infections. Because of worry of recurrent cholangitis, patient was admitted to the hospital for further observation. Thus far, blood cultures have been negative, may have possible urinary tract infection, urine culture is pending. Patient feeling much better since admission. Currently afebrile, no significant cough or shortness of breath. 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 (2) Chronic a-fib (3) DM type 2 (diabetes mellitus, type 2) (4) Hepatic fibrosis (5) History of ITP (6) HLD (hyperlipidemia) (7) HTN (hypertension) (8) Neuropathy (9) Pacemaker (10) Recurrent cholangitis (11) Sclerosing cholangitis Surgical Problems: (1) History of hysterectomy (2) S/P cholecystectomy Family History FH: diabetes mellitus FH: heart disease Social History Smoking Status: Never Smoker Drug Use: none Marital Status: Housing Status: lives with family Occupation Status: retired Allergies Coded Allergies: Adhesives (Verified Adverse Reaction, Unknown, "it festers and gets sore" , 08/28/17) Bacitracin (Verified Adverse Reaction, Unknown, states "if I use it it won 't heal", 08/28/17) Lisinopril (Verified Adverse Reaction, Unknown, Cough, 08/28/17) Reported by PT. Neomycin (Verified Adverse Reaction, Unknown, states "if I use it it won' t heal", 08/28/17) Polymyxin B (Verified Adverse Reaction, Unknown, states "if I use it it won't heal", 08/28/17) Current Inpatient Medications Current Inpatient Medications Medications (Trade) Dose Ordered Sig/Anjana Route Start Time Stop Time Status Last Admin Dose Admin Ertapenem 1 gm/ Sodium Chloride 50 ml @ 120 mls/hr Q24H IV 08/28/17 18:00 09/07/17 14:59 08/28/17 18:03 120 MLS/HR Calcium/Vitamin D (Caltrate Plus Tab) 1 tab DAILY PO 08/29/17 09:00 09/28/17 08:59 08/29/17 08:13 1 TAB Metoprolol Succinate (Toprol Xl Tab) 50 mg QPM PO 08/28/17 21:00 09/27/17 20:59 08/28/17 18:17 50 MG Pantoprazole Sodium (Protonix Tab) 40 mg DAILY PO 08/29/17 09:00 09/28/17 08:59 08/29/17 08:14 40 MG Timolol Maleate (Timoptic 0.5% Oph Soln) 1 drops BID OPB 08/28/17 21:00 09/27/17 20:59 08/29/17 08:15 1 DROPS Warfarin Sodium (Coumadin Tab) 5 mg DAILY@1600 PO 08/28/17 21:00 09/27/17 20:59 08/28/17 21:13 5 MG Polyethylene (Miralax Powder Packet) 17 gm QAM PO 08/29/17 09:00 09/28/17 08:59 08/29/17 08:14 17 GM Insulin Aspart (novoLOG ASPART) SLIDING SCALE G... ACHS SC 08/28/17 17:15 09/27/17 17:14 08/29/17 12:55 2 UNITS Insulin Glargine (Lantus Solostar Pen) 5 units BID SC 08/28/17 21:00 09/27/17 20:59 08/29/17 08:42 5 UNITS Ertapenem (Consult) 1 ea UD PRN N/A 08/28/17 17:45 09/27/17 17:44 Losartan Potassium (coZAAR TAB) 25 mg BID PO 08/28/17 21:00 09/27/17 20:59 12/17/17 08:13 25 MG Clonidine HCl (Catapres Tab) 0.1 mg Q4 PRN PO 08/28/17 17:45 09/27/17 17:44 Review of Systems Constitutional: + fever, + chills Eyes: No problem reported ENT: No problem reported Respiratory: + cough Cardiovascular: No problem reported Abdomen: No problem reported Musculoskeletal: No problem reported Genitourinary - Female: No problem reported Neurologic: No problem reported Psychiatric: No problem reported Endocrine: No problem reported Hematologic / Lymphatic: No problem reported Integumentary: No problem reported Allergic / Immunologic: No problem reported Physical Exam Date Time Temp Pulse Resp B/P (MAP) Pulse Ox O2 Delivery O2 Flow Rate FiO2 08/29/17 13:35 37.0 68 18 93 Room Air 08/29/17 07:45 Room Air 08/29/17 07:13 37.0 68 18 153/83 (106) 93 Room Air 08/28/17 23:25 Room Air 08/28/17 23:05 36.9 91 16 150/74 (99) 96 Room Air 08/28/17 19:15 76 137/79 (98) 08/28/17 17:44 187/72 (110) 08/28/17 17:00 36.6 76 18 172/84 Room Air 08/28/17 16:40 Room Air 08/28/17 16:38 36.6 76 18 172/84 (113) 95 Room Air 08/28/17 15:30 68 18 157/78 97 Room Air 08/28/17 15:00 71 18 160/73 96 Room Air General Appearance: WD/WN, no apparent distress Head: normocephalic, atraumatic Eyes: normal inspection, EOMI, sclerae normal ENT: normal ENT inspection, pharynx normal Neck: supple, no adenopathy, thyroid normal, trachea midline Respiratory/Chest: chest non-tender, lungs clear, normal breath sounds, no respiratory distress Cardiovascular: regular rate, rhythm, no gallop, no murmur Abdomen/GI: normal bowel sounds, non tender, soft, no organomegaly Back: normal inspection, no CVA tenderness Extremities/Musculoskelatal: no calf tenderness, non-tender Neurologic/Psych: alert, normal mood/affect, oriented x 3 Skin: normal color, warm/dry, no rash Lymphatic: no adenopathy Laboratory Results Date/Time Source Procedure Growth Status 08/29/17 04:20 Urine , Clean Catch Urine Culture - Preliminary NO GROWTH - LESS THAN 1,000 COLONIES/... Resulted Last 24 Hours Test 08/28/17 14:37 08/28/17 16:38 08/28/17 17:00 08/28/17 20:42 Bedside Glucose 107 mg/dl 102 mg/dl 129 mg/dl Lactic Acid Level 1.0 mmol/L Test 08/29/17 05:30 08/29/17 08:02 08/29/17 12:06 White Blood Count 6.06 K/uL Red Blood Count 3.92 M/uL Hemoglobin 11.4 g/dL Hematocrit 34.5 % Mean Corpuscular Volume 88.0 fL Mean Corpuscular Hemoglobin 29.1 pg Mean Corpuscular Hemoglobin Concent 33.0 g/dl Platelet Count 139 K/uL Mean Platelet Volume 11.2 fL Neutrophils (%) (Auto) 49.8 % Lymphocytes (%) (Auto) 34.7 % Monocytes (%) (Auto) 11.4 % Eosinophils (%) (Auto) 3.6 % Basophils (%) (Auto) 0.3 % Neutrophils # (Auto) 3.02 K/uL Lymphocytes # (Auto) 2.10 K/uL Monocytes # (Auto) 0.69 K/uL Eosinophils # (Auto) 0.22 K/uL Basophils # (Auto) 0.02 K/uL RDW Standard Deviation 46.7 fL RDW Coefficient of Variation 14.6 % Immature Granulocyte % (Auto) 0.2 % Immature Granulocyte # (Auto) 0.01 K/uL Prothrombin Time 23.5 SECONDS Prothromb Time International Ratio 2.3 Sodium Level 143 mmol/L Potassium Level 3.8 mmol/L Chloride Level 109 mmol/L Carbon Dioxide Level 28 mmol/L Anion Gap 6.0 mmol/L Blood Urea Nitrogen 10 mg/dl Creatinine 0.75 mg/dl Est Creatinine Clear Calc Drug Dose 59.2 ml/min Estimated GFR () 84.2 Estimated GFR (Non- 72.7 BUN/Creatinine Ratio 13.1 Random Glucose 111 mg/dl Calcium Level 8.3 mg/dl Magnesium Level 1.8 mg/dl Total Bilirubin 0.5 mg/dl Direct Bilirubin 0.1 mg/dl Aspartate Amino Transf (AST/SGOT) 17 U/L Alanine Aminotransferase (ALT/SGPT) 18 U/L Alkaline Phosphatase 60 U/L Total Protein 6.4 gm/dl Albumin 3.0 gm/dl Bedside Glucose 133 mg/dl 72 mg/dl Patient Name: MARIAH OLIVAS Unit Number: [id number] Dictated: 08/29/17521 Transcribed: 08/29/17521 PBS Printed Date/Time: [~ rep prt dt]/[~ rep prt tm] [~ rep ct labl] - [~ rep ct ivnm] [facility] [place] [place] [address] Dictated: 08/29/17521 Transcribed: 08/29/17521 PBS Printed Date/Time: [~ rep prt dt]/[~ rep prt tm] [~ rep ct labl] - [~ rep ct ivnm] GALLBLADDER-ABD LIMITED CLINICAL HISTORY: 86 years-old Female presenting with CHOLANGITIS? CBD OBSTRUCTION?. TECHNIQUE: Real-time grayscale and limited color Doppler ultrasound imaging of the abdomen limited to the right upper quadrant was performed. COMPARISON: 02/02/[address] from 02/01/2017. FINDINGS: Pancreas: Visualized portions of the pancreatic head and body normal. Liver: Hyperechogenic parenchyma with heterogeneous echotexture, likely indicating fibrosis or steatosis. The liver measures 14.3 cm in maximal sagittal dimension. No sonographic evidence of hepatic mass. Hyperechogenic foci within the hepatic parenchyma may correlate to previously noted pneumobilia. Main portal vein patent with normal directional flow. Biliary: No intrahepatic biliary ductal dilatation. Common bile duct measures up to 2 mm in diameter. Gallbladder: Surgically absent. Right kidney: Normal in appearance. No hydronephrosis. Ascites: None. IMPRESSION: 1. Hyperechogenic liver parenchyma with heterogeneous echotexture could represent hepatic fibrosis/cirrhosis or steatosis. 2. No intrahepatic or extrahepatic biliary ductal dilatation. 3. Pneumobilia may be present as seen on prior CT. 4. These findings do not exclude cholangitis. Electronically signed by: Teja Epstein M.D. 08/29/2017 5:25 AM Dictated Date/Time: 08/29/2017 5:22 AM The status of this report is Signed. Draft = Not yet reviewed or approved by Radiologist. Signed = Reviewed and approved by Radiologist. <AttendingPhy>Jerri Acevedo M.D.</AttendingPhy> <FamilyPhy>Brandee Forman M.D.</FamilyPhy> <PrimaryPhy>Brandee Forman M.D.</PrimaryPhy> <UnitNumber> [id number]</UnitNumber> <VisitNumber>[id number]</VisitNumber> <PatientName> MARIAH OLIVAS</PatientName> <DateOfBirth>1930</DateOfBirth> <Location>C.MSN< /Location> <ServiceDate>08/28/17</ServiceDate> <MNE>ESINDI</MNE> <OrderingPhy> Ryland Yuan MD</OrderingPhy> <OrderingPhyMNE>f rep ord dr zabala</ OrderingPhyMNE> <DictatingPhyMNE>f rep dict dr zabala</DictatingPhyMNE> <CCListMNE> f rep ct mne</CCListMNE> <AdmittingPhyMNE>f pt admit dr zabala</AdmittingPhyMNE> < AttendingPhyMNE>f pt attend dr zabala</AttendingPhyMNE> <ConsultingPhyMNE>f pt consult dr zabala</ConsultingPhyMNE> <FamilyPhyMNE>f pt fam dr zabala</FamilyPhyMNE> <OtherPhyMNE>f pt other dr zabala</OtherPhyMNE> < PrimaryPhyMNE>f pt prim care dr zabala</PrimaryPhyMNE> <ReferringPhyMNE>f pt referring dr zabala</ReferringPhyMNE> Assessment & Plan 86-year-old female with history of sclerosing cholangitis with recurrent bouts of Gram-negative sepsis from recurrent cholangitis, now admitted with several days of fever, but no evidence of recurrent biliary infection. Patient may have possible urinary tract infection. Patient be continued on current antibiotics, and culture of urine will be followed as an outpatient. I will adjust if necessary once results are available.
== END 2017-08-29 14:20 | disposition home or self-care (01) | DRG 864 ==
LOC: C.EDA 11:19 → C.MSN 15:02 → ENRESERV 15:29 → CANBEDREQ 15:33
PROVIDERS: ADMIT Hospitalist; ATTEND Hospitalist
DX: R50.9 Fever, unspecified (principal); N39.0 Urinary tract infection, site not specified; K21.9 Gastro-esophageal reflux disease without esophagitis; E11.9 Type 2 diabetes mellitus without complications; E78.5 Hyperlipidemia, unspecified; I10 Essential (primary) hypertension; Z95.0 Presence of cardiac pacemaker; Z90.710 Acquired absence of both cervix and uterus; Z90.49 Acquired absence of other specified parts of digestive tract; Z83.3 Family history of diabetes mellitus; Z82.49 Family history of ischemic heart disease and other diseases of the circulatory system

== ENCOUNTER → 2017-11-16 | Day surgery (SDC) | payer OTHER ==
[~2017-11-16] VITALS: Ht 165.1 cm; Wt 83.5 kg
[~2017-11-16] MED LIST changes: +BACITRACIN 50000 UNIT VIAL ONE; +BUPIVACAINE 0.5 % 5 MG/1 ML MPF 30ML VIAL ONE; +CEFAZOLIN 1000MG IV PUSH 7.5 ML IV SCH; +CEFAZOLIN SOD 1 GM VIAL ONE; +CEFD1CAP14 PO; +CZR25 PO; +FENTANYL CITRATE INJ 50 MCG/1 ML 2 ML VIAL ONE; -GLIP2.5T11 PO; +LACTATED RINGER'S 1000ML 1,000 ML IV SCH; +LIDOCAINE HCL 1% 20 ML VIAL ONE; -LOSA50TA6 PO; +MIDAZOLAM HCL 5 MG/ML 1 ML VIAL ONE; +PATIENT'S ALLERGY INFO NEEDS ENTERED SCH; +PATIENT'S HEIGHT AND/OR WEIGHT NEEDED SCH; -WARF5TAB7 PO
[2017-11-16 06:39] VITALS: BP 141/49; PULSE 68; TEMP 36.8; O2SAT 95; Ht 165.1 cm; Wt 83.5 kg
--- NOTE | 2017-11-16 07:58 | History & Physical Bridge Note ---
H&P Re-Evaluation Bridge Note: I have examined the patient, reviewed the History & Physical and in the interval since the performance of the History & Physical I have noted the following changes of clinical significance: No changes noted
--- NOTE | 2017-11-16 07:59 | Pre Sedation Assessment ---
Pre Sedation Assessment General Date of Sedation: Nov 16, 2017. Vital Signs Past 12 Hours Date Time Temp Pulse Resp B/P (MAP) Pulse Ox O2 Delivery O2 Flow Rate FiO2 11/16/17 06:39 36.8 68 20 141/49 (79) 95 Room Air Review Cardiovascular: regular rate, rhythm Lungs: lungs clear Pre-Sedation Airway Assessment Smoking Status: Never Smoker Hx of Sleep Apnea: No Hx of difficult intubation: No Short Thick Neck: No Thyro-mental Distance: < or =3 Finger Breadths Oral Cavity: WNL Mallampati Classification: Class II ASA Classification: Class II NPO Status Date of Last Intake of Fluids: Nov 15, 2017 Time of Last Intake of Fluids: 2029 Date of Last Intake of Solids: Nov 15, 2017 Time of Last Intake of Solids: 2029 Procedure Planning Contraindications for Sedation: None Current Medications Reviewed: Yes Notes The planned sedation has been discussed with the patient. Informed Consent was obtained. I have identified the patient, determined the appropriateness of sedation and have assessed the patient immediately prior to the procedure. All medicine(s) and interventions are by my order.
--- NOTE | 2017-11-16 08:53 | Post Sedation Assessment ---
Post Sedation Assessment General Date of Sedation Nov 16, 2017. Vital Signs: Vital Signs Past 12 Hours Date Time Temp Pulse Resp B/P (MAP) Pulse Ox O2 Delivery O2 Flow Rate FiO2 11/16/17 08:50 60 16 150/72 (98) 99 Room Air 11/16/17 08:45 60 16 154/71 (98) 99 Room Air 11/16/17 08:40 60 16 153/67 (95) 99 Room Air 11/16/17 06:39 36.8 68 20 141/49 (79) 95 Room Air Post Procedure Recovery Score Activity: (2) Moves 4 extremities * Respiration: (2) Deep breath/cough Circulation: (2) +/-20% PreAnes Value Consciousness: (2) Fully Awake Oxygen Saturation: (2) > 92% On Room Air Post Anesthesia Score: 10 Discharge Sedation Level of Care: Fast Track Phase II Post Sedation Plan On clinical assessment, the patient appears to have tolerated the sedation without complications. Patient is recovering as anticipated. Patient will continue to be monitored by nursing and may be discharged when sedation discharge criteria are met per below protocol. Upon Completions of procedure and additional 15 minutes continue every 5 minute vital signs and the P.A.R. score; then discharge to a Phase I or Fast Track to Phase II per the following guidelines: * Discharge Patient to appropriate Phase II area if PAR is 8 or greater or return to pre- procedure baseline. The post - procedure orders will be as directed. * If PAR score is less than 8 or not return to pre-procedure baseline then patient will follow Phase I monitoring till PAR is reached for Phase II. The Phase I may be done in procedure room or may call to secure a Phase I area. * If naloxone or flumazenil are used for reversal, hold in Phase I for an additional 60 -120 minutes before discharge to Phase II. Please call the Sedation Physician to re-evaluate and complete post-note for discharge to Phase II area. Do NOT discharge from procedure sedation or Phase 1 until post- sedation evaluation note is complete by procedure /sedation MD Sedation Discharge Instructions to be given to the patient at discharge to home.
--- NOTE | 2017-11-16 08:53 | [facility] Post Operative Brief Note ---
Immediate Operative Summary Operative Date Nov 16, 2017. Pre-Operative Diagnosis snd, ppm at [place] Post-Operative Diagnosis same Procedure(s) Performed dual chamber rate responsive pacemaker generator change Surgeon geetha ramirez In[employer]atic[employer] Mdm Architect Surgeon(s) none Estimated Blood Loss <5cc Findings See Below see offiical report Fluids (cc crystalloids) 150 Specimens none Drains None Anesthesia Type IV Sedat Cons RN Only Complication(s) none Disposition Accompanied Pt To Recover: no Disposition: asu
--- NOTE | 2017-11-16 08:55 | Discharge Instructions ---
Discharge Instructions Date of Service Nov 16, 2017. Visit Reason for Visit: A-FIB Discharge Discharge Diagnosis / Problem: sinus node dysfunction, pacemaker at JUNIOR Discharge Goals Goal(s): Improve function Activity Recommendations Activity Limitations: as noted below Lifting Limitations: no more than 10 pounds (do not lift more than 10 pounds with the left arm for 2 weeks) May Resume Sexual Activity: after two weeks Shower/Bathe: tomorrow Driving or Machine Use: resume 1 day after discharge Anesthesia . Post Anesthesia Instructions: If you have had General Anesthesia or IV Sedation: * Do not drive today. * Resume driving when surgeon permits. * Do not make important decisions or sign legal documents today. * Call surgeon for: 1. Temperature elevations greater than 101 degrees F. 2. Uncontrollable pain. 3. Excessive bleeding. 4. Persistent nausea and vomiting. 5. Medication intolerance (nausea, vomiting or rash). * For nausea and vomiting use only clear liquids such as: tea, soda, bouillon until nausea subsides, then gradually increase diet as tolerated. * If you have any concerns or questions, call your surgeon's office. If physician is unavailable and it is an emergency, call 911 or go to the nearest emergency room. . Instructions / Follow-Up Instructions / Follow-Up ACTIVITY RECOMMENDATIONS: * Do not lift more than 10 pounds with the left arm for 2 weeks. SPECIAL CARE INSTRUCTIONS: * If bleeding occurs, apply direct pressure to area for 5 minutes. * Call your doctor if you have severe pain, fever, drainage or bleeding at site. * Keep dry for 24 hours. * Keep any scheduled doctor's appointment. * Implant Card - hand held device with website information given. SKIN IRRITATION: * You may experience some redness and/or swelling in the area where radiation was administered. If any skin irritation occurs, please contact your family physician. FOLLOW UP VISIT: Keep any scheduled doctor appointments. Diet Recommendations Recommended Home Diet: resume previous diet Procedures Procedures Performed: dual chamber rate responsive pacemaker generator change Pending Studies Studies pending at discharge: no Medical Emergencies . Who to Call and When: Medical Emergencies: If at any time you feel your situation is an emergency, please call 911 immediately. . Non-Emergent Contact Non-Emergency issues call your: Water Treatment Plant Repairer . . "Provider Documentation" section prepared by Beth Rdz. .
[2017-11-16 09:00] VITALS: BP 149/60; PULSE 61; TEMP 36.5; O2SAT 99
[2017-11-16 09:18] VITALS: BP 149/39; PULSE 62; O2SAT 93
[2017-11-16 09:52] VITALS: BP 150/57; PULSE 60; TEMP 36.5; O2SAT 96
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
== END | disposition home or self-care (01) ==
LOC: C.ACU 06:08
PROVIDERS: ATTEND Internal Medicine
DX: Z45.010 Encounter for checking and testing of cardiac pacemaker pulse generator [battery] (principal); I48.0 Paroxysmal atrial fibrillation; E11.42 Type 2 diabetes mellitus with diabetic polyneuropathy; I44.7 Left bundle-branch block, unspecified; K21.9 Gastro-esophageal reflux disease without esophagitis; E78.5 Hyperlipidemia, unspecified; I10 Essential (primary) hypertension; M15.9 Polyosteoarthritis, unspecified; Z79.84 Long term (current) use of oral hypoglycemic drugs; Z79.01 Long term (current) use of anticoagulants; Z79.899 Other long term (current) drug therapy; Z88.8 Allergy status to other drugs, medicaments and biological substances

== ENCOUNTER 2018-04-08 01:57 | Emergency (ER) | payer OTHER ==
[~2018-04-08] VITALS: Ht 165.1 cm; Wt 85.0 kg
[~2018-04-08 01:57] MED LIST changes: -BACITRACIN 50000 UNIT VIAL ONE; -BUPIVACAINE 0.5 % 5 MG/1 ML MPF 30ML VIAL ONE; -CEFAZOLIN 1000MG IV PUSH 7.5 ML IV SCH; -CEFAZOLIN SOD 1 GM VIAL ONE; -FENTANYL CITRATE INJ 50 MCG/1 ML 2 ML VIAL ONE; -LACTATED RINGER'S 1000ML 1,000 ML IV SCH; -LIDOCAINE HCL 1% 20 ML VIAL ONE; -MIDAZOLAM HCL 5 MG/ML 1 ML VIAL ONE; -PATIENT'S ALLERGY INFO NEEDS ENTERED SCH; -PATIENT'S HEIGHT AND/OR WEIGHT NEEDED SCH
[2018-04-08 02:04] VITALS: TEMP 36.8; Ht 165.1 cm; Wt 85.0 kg
[2018-04-08] MEDS ORDERED: DILTIAZEM HCL 5 MG/ML 5 ML VIAL IV STA (02:14)
--- NOTE | 2018-04-08 02:16 | EMERGENCY ROOM VISIT NOTE ---
History Report prepared by Dorina: Isacc Mahajan Under the Supervision of: Ever KruegerO. First contact with patient: 02:05 Chief Complaint: CARDIAC ASSESSMENT Stated Complaint: A-FIB with RVR History of Present Illness The patient is an 87 year old female who presents to the Emergency Room with complaints of an episode of atrial fibrillation occurring today at 0100. Per nurse, the patient was unable to sleep and developed palpitations and exertional dyspnea. The patient states that she also had a pain in her neck. She notes that she has a history of atrial fibrillation and neuropathy. She reports that she last had an episode of atrial fibrillation about 10 years ago. The patient states that she had a new battery placed in her pacemaker a month ago. She notes that she has not had similar symptoms in the past. She reports that she feels as though she "has fluid" but she denies any leg swelling. She also denies any current SOB. The patient states that she takes Coumadin. Source of History: patient Onset: 0100 Position: chest Quality: other (atrial fibrillation) Timing: other (an episode) Associated Symptoms: + neck pain Note: Per nurse, the patient also had palpitations and exertional dyspnea. The patient denies feels as though she has fluid but denies any leg swelling. Review of Systems See HPI for pertinent positives & negatives. A total of 10 systems reviewed and were otherwise negative. 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 Surgical Problems: (1) History of hysterectomy (2) S/P cholecystectomy Family History FH: diabetes mellitus FH: heart disease Hypertension Social History Smoking Status: Never Smoker Alcohol Use: none Drug Use: none Marital Status: Housing Status: lives with family Occupation Status: retired Current/Historical Medications Scheduled Calcium/Vitamin D (Os-Andre 500 Plus D), 1 TAB PO DAILY Cefdinir (Omnicef), 300 MG PO HS Losartan Potassium (Losartan Potassium), 25 MG PO BID Metformin Hcl (Glucophage), 1,000 MG PO BID Metoprolol Succ (Toprol Xl) (Toprol-Xl ), 50 MG PO QPM Pantoprazole (Protonix), 40 MG PO DAILY Polyethylene Glycol 3350 (Miralax), 17 GM PO QAM Timolol Maleate (Timolol 0.5% Oph Soln 15 Ml), 1 DROP OPB BID Warfarin Sodium (Coumadin), 5 MG PO HS Allergies Coded Allergies: Adhesives (Verified Adverse Reaction, Unknown, "it festers and gets sore" , 11/16/17) Bacitracin (Verified Adverse Reaction, Unknown, states "if I use it it won 't heal", 11/16/17) Lisinopril (Verified Adverse Reaction, Unknown, Cough, 11/16/17) Reported by PT. Neomycin (Verified Adverse Reaction, Unknown, states "if I use it it won' t heal", 11/16/17) Polymyxin B (Verified Adverse Reaction, Unknown, states "if I use it it won't heal", 11/16/17) Physical Exam Vital Signs Date Time Temp Pulse Resp B/P (MAP) Pulse Ox O2 Delivery O2 Flow Rate FiO2 04/08/18 03:43 61 18 124/62 95 04/08/18 03:36 60 04/08/18 03:06 72 04/08/18 03:01 113/61 04/08/18 02:57 72 16 95 Room Air 04/08/18 02:54 75 04/08/18 02:47 89 04/08/18 02:46 113/63 04/08/18 02:42 85 21 95 04/08/18 02:32 113 04/08/18 02:32 102/73 04/08/18 02:28 166 04/08/18 02:27 90 27 94 04/08/18 02:17 114/78 04/08/18 02:12 80 97 Room Air 04/08/18 02:07 138 04/08/18 02:05 147/78 04/08/18 02:04 36.8 140 15 147/78 Room Air Physical Exam HEENT: Head - normocephalic and atraumatic Pupils are equal, round, and reactive to light. Extraocular eye muscles are intact, and sclera are anicteric. Nose - moist nasal mucosa without discharge. Mouth - moist buccal mucosa. Oropharynx is nonerythematous and there is no tonsillar exudate or edema noted. Neck: Supple; no JVD, nuchal rigidity, cervical lymphadenopathy. Heart: Irregularly irregular rhythm, tachycardic rate. There is a normal S1 and S2 with no murmurs, clicks, or gallops appreciated. Lungs: Clear to auscultation bilaterally with no wheezes, rales, or rhonchi. Abdomen: Soft, completely nontender, nondistended, with good bowel sounds. There are no palpable pulsatile masses or hepatosplenomegaly. There is no guarding, rigidity, or rebound noted. Extremities: No evidence of cyanosis, clubbing, or edema. There are easily palpable peripheral pulses. Skin: warm and dry with good turgor and no rashes. Medical Decision & Procedures ER Provider Diagnostic Interpretation: Radiology results as stated below per my review and interpretation: CHEST X-RAY: Mild pulmonary vascular congestion. Cardiac pacemaker in place. No obvious pulmonary infiltrate or pleural effusion. Laboratory Results 04/08/18 02:05 Red Blood Count 4.53, Mean Corpuscular Volume 86.3, Mean Corpuscular Hemoglobin 29.1, Mean Corpuscular Hemoglobin Concent 33.8, Mean Platelet Volume 10.7, Neutrophils (%) (Auto) 41.9, Lymphocytes (%) (Auto) 42.9, Monocytes (%) (Auto) 8.9, Eosinophils (%) (Auto) 5.9, Basophils (%) (Auto) 0.3, Neutrophils # (Auto) 3.10, Lymphocytes # (Auto) 3.18, Monocytes # (Auto) 0.66, Eosinophils # (Auto) 0.44, Basophils # (Auto) 0.02 04/08/18 02:05 Test 04/08/18 02:05 White Blood Count 7.41 K/uL (4.8-10.8) Red Blood Count 4.53 M/uL (4.2-5.4) Hemoglobin 13.2 g/dL (12.0-16.0) Hematocrit 39.1 % (37-47) Mean Corpuscular Volume 86.3 fL (80-100) Mean Corpuscular Hemoglobin 29.1 pg (25-34) Mean Corpuscular Hemoglobin Concent 33.8 g/dl (32-36) Platelet Count 189 K/uL (130-400) Mean Platelet Volume 10.7 fL (7.4-10.4) Neutrophils (%) (Auto) 41.9 % Lymphocytes (%) (Auto) 42.9 % Monocytes (%) (Auto) 8.9 % Eosinophils (%) (Auto) 5.9 % Basophils (%) (Auto) 0.3 % Neutrophils # (Auto) 3.10 K/uL (1.4-6.5) Lymphocytes # (Auto) 3.18 K/uL (1.2-3.4) Monocytes # (Auto) 0.66 K/uL (0.11-0.59) Eosinophils # (Auto) 0.44 K/uL (0-0.5) Basophils # (Auto) 0.02 K/uL (0-0.2) RDW Standard Deviation 46.4 fL (36.4-46.3) RDW Coefficient of Variation 14.8 % (11.5-14.5) Immature Granulocyte % (Auto) 0.1 % Immature Granulocyte # (Auto) 0.01 K/uL (0.00-0.02) Prothrombin Time 20.7 SECONDS (9.0-12.0) Prothromb Time International Ratio 2.0 (0.9-1.1) Activated Partial Thromboplast Time 33.8 SECONDS (21.0-31.0) Partial Thromboplastin Ratio 1.3 Anion Gap 7.0 mmol/L (3-11) Est Creatinine Clear Calc Drug Dose 47.8 ml/min Estimated GFR () 66.2 Estimated GFR (Non- 57.1 BUN/Creatinine Ratio 20.7 (10-20) Calcium Level 8.6 mg/dl (8.5-10.1) Total Bilirubin 0.3 mg/dl (0.2-1) Aspartate Amino Transf (AST/SGOT) 23 U/L (15-37) Alanine Aminotransferase (ALT/SGPT) 26 U/L (12-78) Alkaline Phosphatase 77 U/L (45-117) Troponin I 0.018 ng/ml (0-0.045) Pro-B-Type Natriuretic Peptide 375 pg/ml (0-1800) Total Protein 7.4 gm/dl (6.4-8.2) Albumin 3.5 gm/dl (3.4-5.0) Globulin 3.9 gm/dl (2.5-4.0) Albumin/Globulin Ratio 0.9 (0.9-2) Thyroid Stimulating Hormone (TSH) 3.440 uIu/ml (0.300-4.500) Laboratory results per my review. Medications Administered Medications (Trade) Dose Ordered Sig/Anjana Route Start Time Stop Time Status Last Admin Dose Admin Diltiazem HCl (Cardizem Inj) 10 mg NOW STAT IV 04/08/18 02:14 04/08/18 02:16 DC 04/08/18 02:23 10 MG Procedure Cardizem Inj 10mg IV. ECG Per My Interpretation Indication: other (palpitations) Rate (beats per minute): 154 Rhythm: other (afib with RVR) Findings: other (ST segment depression in lead 1 and AVL) ED Course 0208: Past medical records reviewed. The patient was evaluated in room A9. A complete history and physical exam was performed. A 12-lead EKG was obtained. Laboratory studies were drawn as above. A portable chest x-ray was performed. 0214: Cardizem Inj 10mg IV. Her pacer was interrogated. 0242: I spoke to the [employer] billing customer service representative. The patient had multiple episodes of afib with RVR starting at 2315 last night. The patient's pacer tried to pace her out of afib but was unsuccessful. The [employer] billing customer service representative notes fairly high ventricular rates and states that the battery and leads in the patient's pacemaker were all normal. The [employer] billing customer service representative reports that the battery to the patient's pacemaker was replaced in November,. 0313: The patient's HR broke into the 70s. 0324: Upon reevaluation, the patient is stable. I discussed findings and results with her. She verbalized agreement of the treatment plan. I added coags to the patient's labs and I told her that she would be called with the results. The patient was discharged home. Medical Decision The patient is an 87 year old female who presents to the Emergency Room with complaints of an episode of atrial fibrillation occurring today at 0100. Differential diagnoses include: pacemaker malfunction, afib with RVR, cardiac ischemia, electrolyte abnormality, and thyroid dysfunction. Lab Results Show: BUN 19. Creatinine 0.9. Normal LFTs and TSH. BNP 375. Troponin 0.018. Normal white count. Stable H&H. INR 2.0. This is an 87-year-old female patient presents the emergency department with an episode of atrial fibrillation with rapid ventricular response. The patient has a pacemaker in place which did attempt to pace her out of this rhythm but was unsuccessful. She received 10 mg of IV Cardizem here in the emergency department which slowed her rate and eventually converted her to a normal sinus rhythm. The patient shared with me that she had previously been on 100 mg of Toprol and her dose had been weaned by her exhibition specialist down to 25 mg. We talked about the possibility of her having another episode of tachycardia. I encouraged her to take an extra dose of the 25 mg of Toprol. I suggested that she discussed the case with Dr. Branham to see if he would like to increase that dose again. Laboratory studies were unremarkable. Chest x-ray was unremarkable. The patient is feeling well at the time of discharge. Medication Reconcilliation Current Medication List: was personally reviewed by me Blood Pressure Screening Patient's blood pressure: Normal blood pressure Blood pressure disposition: Did not require urgent referral Impression Primary Impression: Atrial fibrillation with rapid ventricular response Scribe Attestation The scribe's documentation has been prepared under my direction and personally reviewed by me in its entirety. I confirm that the note above accurately reflects all work, treatment, procedures, and medical decision making performed by me. Departure Information Dispostion Home / Self-Care Referrals Brandee Forman M.D. (PCP) Forms IMPORTANT VISIT INFORMATION Patient Instructions My [facility] Additional Instructions If this episode happens again, you can take another dose of your Toprol. If it does not break, come back to the ER. Follow up later today with Dr. Branham
[2018-04-08 02:25] LABS: BASO % 0.3 %; BASO ABS # 0.02 K/uL (0-0.2); EOS % 5.9 %; EOS ABS # 0.44 K/uL (0-0.5); HEMATOCRIT 39.1 % (37-47); HEMOGLOBIN 13.2 g/dL (12.0-16.0); IG# 0.01 K/uL (0.00-0.02); LYMPH % 42.9 %; LYMPH ABS # 3.18 K/uL (1.2-3.4); MEAN CELL VOLUME 86.3 fL (80-100); MEAN CORPUSCULAR HEMOGLOBIN 29.1 pg (25-34); MEAN CORPUSCULAR HGB CONC 33.8 g/dl (32-36); MEAN PLATELET VOLUME 10.7 fL (7.4-10.4); MONO % 8.9 %; MONO ABS # 0.66 K/uL (0.11-0.59); NEUT % 41.9 %; PLATELET COUNT 189 K/uL (130-400); RED CELL DISTRIBUTION WIDTH CV 14.8 % (11.5-14.5); RED CELL DISTRIBUTION WIDTH SD 46.4 fL (36.4-46.3); WHITE BLOOD COUNT 7.41 K/uL (4.8-10.8)
[2018-04-08 03:00] LABS: ALBUMIN 3.5 gm/dl (3.4-5.0); CALCIUM 8.6 mg/dl (8.5-10.1); CREATININE 0.91 mg/dl (0.60-1.20); POTASSIUM 3.8 mmol/L (3.5-5.1); TOTAL PROTEIN 7.4 gm/dl (6.4-8.2)
[2018-04-08 03:43] VITALS: BP 124/62; PULSE 61; O2SAT 95
[2018-04-08 03:46] LABS: PTT PATIENT 33.8 SECONDS (21.0-31.0)
--- NOTE | 2018-04-08 06:51 | DIAGNOSTIC IMAGING REPORT ---
CHEST ONE VIEW PORTABLE CLINICAL HISTORY: sob/ afib with RVR COMPARISON STUDY: 08/28/2017 FINDINGS: Mild cardiomegaly. Permanent bipolar cardiac pacemaker. Interstitial change in both lung bases slightly increased in the prior exam. IMPRESSION: Mild interstitial edema. No focal infiltrate. The above report was generated using voice recognition software. It may contain grammatical, syntax or spelling errors. Electronically signed by: Hiram Barrow M.D. 04/08/2018 6:50 AM Dictated Date/Time: 04/08/2018 6:49 AM
== END 2018-04-08 03:40 | disposition home or self-care (01) ==
LOC: EDBD 01:57 → C.EDA 02:00
DX: I48.91 Unspecified atrial fibrillation (principal); I10 Essential (primary) hypertension; E11.40 Type 2 diabetes mellitus with diabetic neuropathy, unspecified; Z79.84 Long term (current) use of oral hypoglycemic drugs; Z79.01 Long term (current) use of anticoagulants; Z95.0 Presence of cardiac pacemaker; Z82.49 Family history of ischemic heart disease and other diseases of the circulatory system; Z88.1 Allergy status to other antibiotic agents; Z88.8 Allergy status to other drugs, medicaments and biological substances

== ENCOUNTER 2021-09-02 16:21 | Observation (INO) ==
[2021-09-02] MEDS ORDERED: NITROGLYCERIN 2% OINTMENT 30GM TUBE EXT STA (16:34)
--- NOTE | 2021-09-02 16:38 | Emergency Department Note ---
History of Present Illness General Chief complaint: Chest Pain Stated complaint: CHEST & BACK PRESSURE Time Seen by Provider: 09/02/21 16:29 Source: patient and EMS Mode of arrival: EMS History of Present Illness Provider complaint: Chest pain Onset (ago): hour(s) Location: chest Radiation: back Pain Consistency: + constant Current Pain Intensity: 1 Quality: + other (Pressure) Relieved By: + medication (Nitroglycerin) Exacerbated By: + none Associated symptoms: + chest pain; no cough, no fever/chills, no nausea/vomiting or no shortness of breath This is an 89-year-old female with a history of atrial fibrillation and p acemaker on Coumadin presenting with chest pain starting approximately 3:30 PM today. She describes it as a pressure in the substernal region radiating slightly into the back. She initially rated it a 7 out of 10 in severity. She did receive nitroglycerin in the ambulance as well as aspirin and states that it feels like a 1 out of 10 currently. She denies any associated diaphoresis, nausea, or shortness of breath. She denies any history of IN. She has had no fever, cough or cold symptoms, abdominal pain, diarrhea, urinary symptoms or leg swelling or pain. She also notes that she slipped in the tub 2 days ago and hit the left side of her head. She has no headache or LOC. She denies any neck pain. Home Medications Medication Instructions Recorded Confirmed Type timolol maleate 0.25 % eye drops 1 drp OPB BID ml 04/10/19 09/02/21 History warfarin 5 mg tablet 5 mg PO QPM tab 04/10/19 09/02/21 History cefdinir 300 mg capsule 300 mg PO DAILY 09/02/21 09/02/21 History latanoprost 0.005 % eye drops 1 drp OPB HS 09/02/21 09/02/21 History losartan 100 mg tablet 100 mg PO DAILY 09/02/21 09/02/21 History metformin 500 mg tablet 500 mg PO BIDM 09/02/21 09/02/21 History metoprolol succinate 25 mg 25 mg PO DAILY 09/02/21 09/02/21 History tablet,extended release 24 hr sitagliptin 100 mg tablet (Januvia) 50 mg PO DAILY 09/02/21 09/02/21 History Allergies Allergy/AdvReac Type Severity Reaction Status Date / Time adhesive AdvReac Unknown "it Verified 09/02/21 17:22 festers and gets sore" bacitracin AdvReac Unknown states "if Verified 09/02/21 17:22 I use it it won't heal" lisinopril AdvReac Unknown Cough Verified 09/02/21 17:22 neomycin AdvReac Unknown states "if Verified 09/02/21 17:22 I use it it won't heal" polymyxin B AdvReac Unknown states "if Verified 09/02/21 17:22 I use it it won't heal" Past Med/Surg History Medical History Chronic a-fib DM type 2 (diabetes mellitus, type 2) Hepatic fibrosis HLD (hyperlipidemia) HTN (hypertension) Neuropathy Pacemaker Social History Smoking Status: Smoker, status unknown Feels Safe at Home: Yes Review of Systems See HPI for pertinent positives & negatives. and A total of 10 systems reviewed and were otherwise negative Physical Exam Vital Signs Vital Signs - 24 hr 09/02/21 16:43 09/02/21 16:44 09/02/21 16:49 Temperature 37 C Temperature Source Oral Pulse Rate 61 Pulse Rate [Apical] 60 Respiratory Rate 15 14 Blood Pressure 163/67 H Blood Pressure Mean 99 Pulse Oximetry 95 97 97 Oxygen Delivery Method Room Air Room Air Room Air Sepsis Recent Fever Within 48 Hours No Sepsis New/Unexplained Change in Mental Status No Sepsis Action Taken by Nursing No Action Required 09/02/21 19:31 Temperature Temperature Source Pulse Rate Pulse Rate [Apical] 68 Respiratory Rate 20 Blood Pressure Blood Pressure Mean Pulse Oximetry 95 Oxygen Delivery Method Room Air Sepsis Recent Fever Within 48 Hours Sepsis New/Unexplained Change in Mental Status Sepsis Action Taken by Nursing Constitutional: Vital signs reviewed. Eyes: Pupils are equal round reactive to light. Conjunctiva are noninjected. ENT: Pharynx is clear without erythema or exudate. Mucous membranes are moist. Neck supple without meningeal signs. Respiratory: Clear to auscultation bilaterally. Breath sounds are equal bilaterally. Cardiovascular: Regular rate and rhythm. No rubs or gallops. GI: Soft, nondistended and nontender. Bowel sounds are present. Musculoskeletal: No peripheral edema. No lower extremity tenderness. Integumentary: No cyanosis. or jaundice. Neurological: The patient is awake and alert. No focal deficits. Psychiatric: Normal affect. Not anxious appearing. Course Administered Medications Discontinued Medications Nitroglycerin (Nitroglycerin 2% Ointment 30gm Tube) 0.5 inch EXT NOW STA Stop: 09/02/21 16:35 Last Admin: 09/02/21 17:02 Dose: 0.5 inch Documented by: [id number] Medical Decision Making Differential Diagnosis Unstable angina, IN, pleurisy, GERD, peptic ulcer disease Medical Records Attestation: I reviewed the patient's medical records. I did perform a limited focused review of portions of the patient's old chart on the electronic medical record. The patient has had no recent pertinent visits to this hospital. The patient did have her gallbladder removed in 2017. Home Medications Current Medication List: was personally reviewed by me Laboratory Data Attestation: I reviewed the patient's lab results. Result diagrams: 09/02/21 17:00 09/02/21 17:00 Lab Results 09/02/21 09/02/21 09/02/21 Range/Units 17:00 17:00 17:00 WBC 6.39 (4.8-10.8) K/uL RBC 3.89 L (4.2-5.4) M/uL Hgb 11.8 L (12.0-16.0) g/dL Hct 35.5 L (37-47) % MCV 91.3 (80-100) fL MCH 30.3 (25-34) pg MCHC 33.2 (32-36) g/dL RDW Std Deviation 45.8 (36.4-46.3) fL RDW Coeff of Steph 13.9 (11.5-14.5) % Plt Count 202 (130-400) K/uL MPV 10.8 H (7.4-10.4) fL Immature Gran % (Auto) 0.0 % Neut % (Auto) 46.5 % Lymph % (Auto) 43.3 % [place] % (Auto) 8.3 % Eos % (Auto) 1.7 % Baso % (Auto) 0.2 % Neut # (Auto) 2.97 (1.4-6.5) K/uL Lymph # (Auto) 2.77 (1.2-3.4) K/uL [place] # (Auto) 0.53 (0.11-0.59) K/uL Eos # (Auto) 0.11 (0-0.5) K/uL Baso # (Auto) 0.01 (0-0.2) K/uL Immature Gran # (Auto) 0.00 (0.00-0.02) K/uL PT 15.4 H (9.0-12.0) Seconds INR 1.6 H (0.9-1.1) APTT 30.5 (21.0-31.0) Seconds PTT Ratio 1.2 Sodium 140 (136-145) mmol/L Potassium 4.2 (3.5-5.1) mmol/L Chloride 107 (98-107) mmol/L Carbon Dioxide 27 (21-32) mmol/L Anion Gap 6.0 (3-11) BUN 23 H (7-18) mg/dl Creatinine 1.09 (0.6-1.2) mg/dl Est Cr Clr Drug Dosing Not Reportable Est GFR ( Amer) 52.1 ml/min Est GFR (Non-Af Amer) 45.0 ml/min BUN/Creatinine Ratio 20.7 H (10-20) Glucose 141 H (70-99) mg/dl Calcium 9.7 (8.5-10.1) mg/dl Total Bilirubin 0.4 (0.2-1) mg/dl AST 68 H (15-37) U/L ALT 38 (12-78) Alkaline Phosphatase 80 (45-117) U/L Troponin I < 0.015 (0-0.045) ng/ml Total Protein 7.7 (6.4-8.2) gm/dl Albumin 3.5 (3.4-5.0) gm/dl Globulin 4.2 H (2.5-4.0) gm/dl Albumin/Globulin Ratio 0.8 L (0.9-2) Lipase 385 (73-393) U/L SARS-CoV-2, RNA, NAAT (NEGATIVE) 09/02/21 Range/Units Unknown WBC (4.8-10.8) K/uL RBC (4.2-5.4) M/uL Hgb (12.0-16.0) g/dL Hct (37-47) % MCV (80-100) fL MCH (25-34) pg MCHC (32-36) g/dL RDW Std Deviation (36.4-46.3) fL RDW Coeff of Steph (11.5-14.5) % Plt Count (130-400) K/uL MPV (7.4-10.4) fL Immature Gran % (Auto) % Neut % (Auto) % Lymph % (Auto) % [place] % (Auto) % Eos % (Auto) % Baso % (Auto) % Neut # (Auto) (1.4-6.5) K/uL Lymph # (Auto) (1.2-3.4) K/uL [place] # (Auto) (0.11-0.59) K/uL Eos # (Auto) (0-0.5) K/uL Baso # (Auto) (0-0.2) K/uL Immature Gran # (Auto) (0.00-0.02) K/uL PT (9.0-12.0) Seconds INR (0.9-1.1) APTT (21.0-31.0) Seconds PTT Ratio Sodium (136-145) mmol/L Potassium (3.5-5.1) mmol/L Chloride (98-107) mmol/L Carbon Dioxide (21-32) mmol/L Anion Gap (3-11) BUN (7-18) mg/dl Creatinine (0.6-1.2) mg/dl Est Cr Clr Drug Dosing Est GFR ( Amer) ml/min Est GFR (Non-Af Amer) ml/min BUN/Creatinine Ratio (10-20) Glucose (70-99) mg/dl Calcium (8.5-10.1) mg/dl Total Bilirubin (0.2-1) mg/dl AST (15-37) U/L ALT (12-78) Alkaline Phosphatase (45-117) U/L Troponin I (0-0.045) ng/ml Total Protein (6.4-8.2) gm/dl Albumin (3.4-5.0) gm/dl Globulin (2.5-4.0) gm/dl Albumin/Globulin Ratio (0.9-2) Lipase (73-393) U/L SARS-CoV-2, RNA, NAAT NEGATIVE (NEGATIVE) Imaging Data Radiologist's Impression: Chest X-Ray 12/21/21 16:34 XR chest 1V portable CLINICAL HISTORY: Atypical chest pain. COMPARISON STUDY: Chest radiograph April 08, 2018. FINDINGS: Dual lead left subclavian pacer is in place. Cardiomediastinal silhouette is stable. Azygos fissure is incidentally noted. No evidence for pulmonary edema. There is no consolidation to suggest pneumonia. The appearance of the chest is unchanged. IMPRESSION: No acute cardiopulmonary findings. No change in appearance of the chest. ACT 112: Negative or not required by law. Electronically signed by: Mayur Johnson M.D. 09/02/2021 5:[address] 09/02/21 16:56 CT OF THE HEAD WITHOUT CONTRAST CLINICAL HISTORY: head injury on coumadin eval for bleed COMPARISON STUDY: Head CT April 08, 2016. CT DOSE: 690.05 mGycm TECHNIQUE: Helical axial images of the head were obtained without IV contrast. Automated exposure control was utilized for the study. A dose lowering technique was utilized adhering to the principles of ALARA. FINDINGS: No acute intracranial hemorrhage, midline shift or mass effect is present. Mild white matter hypodensity suggests small vessel disease. The ventricular system is unremarkable. The basal cisterns are patent. No extra- axial collections are present. There are no findings to suggest acute dural sinus thrombosis or acute territorial infarct. No significant calvarial abnormalities are present. Visualized portions of the sinuses and mastoid air cells are clear. IMPRESSION: 1. No acute intracranial findings. 2. No calvarial fracture. ACT 112: Negative or not required by law. Electronically signed by: Mayur Johnson M.D. 09/02/2021 6:10 PM ECG Data Attestation: I personally reviewed and interpreted this ECG as follows: Indication: + chest pain Rate (beats per minute): 65 Rhythm: + other (Atrial paced rhythm with prolonged AV conduction) ECG [place]: + Normal ECG Findings: + Other (Prolonged AV conduction); no PVCs Comparison ECG Date: no prior available Head Trauma GCS Score: 15 MDM Narrative I did evaluate the patient as noted above. IV access was established. I did place an order for continuous cardiac monitoring. The monitor showed a paced rhythm at a rate of 65 bpm. did order and personally review the patient's 12- lead EKG as described above. She has a paced rhythm. I did order and perso bonny reviewed the images of the patient's chest x-ray as described above. There is no evidence of acute cardiopulmonary process. I did order and review the patient's blood work as noted in the electronic medical record. CBC demonstrates a white count of 6.3, hemoglobin of 11.8 and platelet count of 202. Electrolytes are unremarkable. Troponin is negative. INR subtherapeutic at 1.6. I did order a CT of the head. I did review the images myself as well as the radiology report as described above. There is no evidence of acute intracranial abnormality. I did treat the patient with nitroglycerin paste. Her chest pain resolved completely on reassessment. Her blood pressure improved. I did recommend hospitalization for further care and evaluation. I did discuss the case with the hospitalist and case resolution specialist. Impression & Plan Acute chest pain, Subtherapeutic international normalized ratio (INR), Acute head injury, Anemia Discharge Plan Visit Data Chief Complaint: Chest Pain Stated Complaint: CHEST & BACK PRESSURE ED Provider: Jose Alberto Hamilton Discharge Problem: Acute chest pain, Subtherapeutic international normalized ratio (INR), Acute head injury, Anemia Patient Disposition: Being Evaluated by Hospitalist Forms Stand Alone Forms: My [facility] Prescriptions Prescriptions: No Action warfarin 5 mg tablet 5 mg PO QPM RF: 0 timolol maleate 0.25 % drops 1 drp OPB BID RF: 0 metoprolol succinate 25 mg tablet extended release 24 hr 25 mg PO DAILY RF: 0 losartan 100 mg tablet 100 mg PO DAILY RF: 0 Januvia 100 mg tablet 50 mg PO DAILY RF: 0 metformin 500 mg tablet 500 mg PO BIDM RF: 0 latanoprost 0.005 % drops 1 drp OPB HS RF: 0 cefdinir 300 mg capsule 300 mg PO DAILY RF: 0 Referrals Referrals: Brandee Forman MD [Primary Care Provider] - Discharge Problem: Acute head injury Qualifiers: Encounter type: initial encounter Qualified Code(s): S09.90XA - Unspecified injury of head, initial encounter Anemia Qualifiers: Anemia type: unspecified type Qualified Code(s): D64.9 - Anemia, unspecified
--- NOTE | 2021-09-02 17:05 | XRay Report ---
XR chest 1V portable CLINICAL HISTORY: Atypical chest pain. COMPARISON STUDY: Chest radiograph April 08, 2018. FINDINGS: Dual lead left subclavian pacer is in place. Cardiomediastinal silhouette is stable. Azygos fissure is incidentally noted. No evidence for pulmonary edema. There is no consolidation to suggest pneumonia. The appearance of the chest is unchanged. IMPRESSION: No acute cardiopulmonary findings. No change in appearance of the chest. ACT 112: Negative or not required by law. Electronically signed by: Mayur Johnson M.D. 09/02/2021 5:04 PM
[2021-09-02 17:09] LABS: Basophils # (auto) 0.01 K/uL (0-0.2); Basophils % (auto) 0.2 %; Eosinophils # (auto) 0.11 K/uL (0-0.5); Eosinophils % (auto) 1.7 %; Hematocrit (blood only) 35.5 % (37-47); Hemoglobin 11.8 g/dL (12.0-16.0); Lymphocytes # (auto) 2.77 K/uL (1.2-3.4); Lymphocytes % (auto) 43.3 %; Mean Corpuscular Hemoglobin 30.3 pg (25-34); Mean Corpuscular Hgb Conc 33.2 g/dL (32-36); Mean Corpuscular Volume 91.3 fL (80-100); Mean Platelet Volume 10.8 fL (7.4-10.4); Monocytes # (auto) 0.53 K/uL (0.11-0.59); Monocytes % (auto) 8.3 %; Neutrophils # (auto) 2.97 K/uL (1.4-6.5); Neutrophils % (auto) 46.5 %; Platelet Count 202 K/uL (130-400); RDW Coefficient of Variation 13.9 % (11.5-14.5); RDW Standard Deviation 45.8 fL (36.4-46.3); Red Blood Count 3.89 M/uL (4.2-5.4); White Blood Count 6.39 K/uL (4.8-10.8)
[2021-09-02 17:23] LABS: INR 1.6 (0.9-1.1); Partial Thromboplastin Ratio 1.2; Partial Thromboplastin Time 30.5 Seconds (21.0-31.0); Prothrombin Time 15.4 Seconds (9.0-12.0)
[2021-09-02 17:30] LABS: Alanine Aminotransferase 38 (12-78); Albumin Level 3.5 gm/dl (3.4-5.0); Aspartate Aminotransferase 68 U/L (15-37); BUN Creatinine Ratio 20.7 (10-20); Blood Urea Nitrogen 23 mg/dl (7-18); Calcium 9.7 mg/dl (8.5-10.1); Carbon Dioxide 27 mmol/L (21-32); Chloride 107 mmol/L (98-107); Est GFR (African American) 52.1 ml/min; Glucose 141 mg/dl (70-99); Lipase 385 U/L (73-393); Potassium 4.2 mmol/L (3.5-5.1); Sodium 140 mmol/L (136-145)
[2021-09-02 17:42] LABS: Albumin Globulin Ratio 0.8 (0.9-2); Alkaline Phosphatase 80 U/L (45-117); Bilirubin,Total 0.4 mg/dl (0.2-1); Globulin 4.2 gm/dl (2.5-4.0); Total Protein 7.7 gm/dl (6.4-8.2); Troponin I < 0.015 ng/ml (0-0.045)
--- NOTE | 2021-09-02 18:11 | CT Scan Report ---
CT OF THE HEAD WITHOUT CONTRAST CLINICAL HISTORY: head injury on coumadin eval for bleed COMPARISON STUDY: Head CT April 08, 2016. CT DOSE: 690.05 mGycm TECHNIQUE: Helical axial images of the head were obtained without IV contrast. Automated exposure con trol was utilized for the study. A dose lowering technique was utilized adhering to the principles o f ALARA. FINDINGS: No acute intracranial hemorrhage, midline shift or mass effect is present. Mild white matte r hypodensity suggests small vessel disease. The ventricular system is unremarkable. The basal cister ns are patent. No extra-axial collections are present. There are no findings to suggest acute dural s inus thrombosis or acute territorial infarct. No significant calvarial abnormalities are present. Vis ualized portions of the sinuses and mastoid air cells are clear. IMPRESSION: 1. No acute intracranial findings. 2. No calvarial fracture. ACT 112: Negative or not required by law. Electronically signed by: Mayur Johnson M.D. 09/02/2021 6:10 PM
--- NOTE | 2021-09-02 19:19 | History & Physical Report ---
Date of Service September 02, 2021 Assessment & Plan (1) Acute chest pain: Plan: This is an 89yo F with a PMH of DM II, history of tachy liza syndrome s/p pacemaker placement, LBBB, CKD III, Klatskin's tumor, recurrent cholangitis, and other medical problems listed below who presents with chest discomfort since 3:30pm this afternoon that has since resolved with ntg paste. Sudden onset of substernal CP at rest earlier, relieved with ntg. No MSK component, ? possible acid reflux is contributing Initial troponin negative CXR with no acute cardiopulmonary findings. No change in appearance of the chest ECG with atrial-paced rhythm H/o normal stress echo in 2015 Continue ntg paste, resting echo in AM, trend troponin, pacer interrogation, fasting lipids in AM Routine cardiology consult, NPO in case of stress test, repeat ECG in AM (2) DM type 2 (diabetes mellitus, type 2): Plan: A1c 7.7 in Jun 2021 Hold home agents SSI while in-patient BSG AC HS or Q6H while NPO (3) HTN (hypertension): Plan: Continue Toprol, ntg paste in place (4) Recurrent cholangitis: Plan: History of benign tumor of extrahepatic bile ducts, s/p removal [place] [facility] Continue daily cefdinir (5) Atrial fibrillation: Plan: Paced rhythm on ECG. INR subtherapeutic at 1.6, given evening dose of coumadin. 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 Spears. Please see addendum. History of Present Illness Chief Complaint: chest pain Primary Care Provider: Brandee Forman MD This is an 89yo F with a PMH of DM II, history of tachy liza syndrome s/p pacemaker placement, LBBB, CKD III, Klatskin's tumor, recurrent cholangitis and other medical problems listed below who presents with chest discomfort since 3:30pm this afternoon. Patient was resting when pain came on suddenly and central substernal and epigastric area. No radiation to jaw, arms or back. No associated diaphoresis, shortness of breath, nausea or vomiting. Pain was initially 7/10 but improved after receiving nitroglycerin in ambulance as well as aspirin. Has nitroglycerin paste in place in ED without any pain. Denies any fever, chills, headache, shortness of breath, nausea, vomiting, abdominal pain, dysuria, diarrhea or constipation. Denies chest pain similar to this in the past. Per chart review, patient with normal stress echo in 2016. Is on Coumadin with history of atrial fibrillation. Also had pacemaker replaced a few years ago due to tachybradycardia syndrome. Of note, states she slipped in her tub a few days ago and hit the side of her head. Denies any loss of consciousness. CT head without any evidence of acute abnormality or bleed. Allergies Allergy/AdvReac Type Severity Reaction Status Date / Time adhesive AdvReac Unknown "it Verified 09/02/21 17:22 festers and gets sore" bacitracin AdvReac Unknown states "if Verified 09/02/21 17:22 I use it it won't heal" lisinopril AdvReac Unknown Cough Verified 09/02/21 17:22 neomycin AdvReac Unknown states "if Verified 09/02/21 17:22 I use it it won't heal" polymyxin B AdvReac Unknown states "if Verified 09/02/21 17:22 I use it it won't heal" Home Medications Medication Instructions Recorded Confirmed Type timolol maleate 0.25 % eye drops 1 drp OPB BID ml 04/10/19 09/02/21 History warfarin 5 mg tablet 5 mg PO QPM tab 04/10/19 09/02/21 History cefdinir 300 mg capsule 300 mg PO DAILY 09/02/21 09/02/21 History latanoprost 0.005 % eye drops 1 drp OPB HS 09/02/21 09/02/21 History losartan 100 mg tablet 100 mg PO DAILY 09/02/21 09/02/21 History metformin 500 mg tablet 500 mg PO BIDM 09/02/21 09/02/21 History metoprolol succinate 25 mg 25 mg PO DAILY 09/02/21 09/02/21 History tablet,extended release 24 hr sitagliptin 100 mg tablet (Januvia) 50 mg PO DAILY 09/02/21 09/02/21 History Past Med/Surg History Medical History (Updated 09/02/21 @ 22:57 by Nena Starr PA-C) Chronic a-fib DM type 2 (diabetes mellitus, type 2) Hepatic fibrosis HLD (hyperlipidemia) HTN (hypertension) Neuropathy Pacemaker Recurrent cholangitis Tachycardia-bradycardia syndrome Surgical History 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, felt to be due to chronic cholangitis " History of hysterectomy Pacemaker S/P cholecystectomy Family History Other Heart disease Social History Smoking Status: Never smoker Hx Alcohol Use: No Hx Substance Use: No Preferred Language: Welsh Communication Ability: Effective Pediatric Occupational Therapist Required: No Beliefs That Will Affect Care: None Current Living Situation: Spouse Current Living Situation Comment: Lives with Jonnathan Other Information That Helps Us Care for You: No Feels Safe at Home: Yes Safety Concerns: Feels Safe At This Time Assistive Devices: Glasses and Walker Review of Systems Review of Systems: At least ten systems reviewed and negative except as noted in the HPI. Physical Exam Physical Exam: General Appearance: WD/WN, vitals as above, NAD, sitting up in bed, conversing easily Head: normocephalic, atraumatic Eyes: normal inspection, PERRL, conjunctivae normal, anicteric sclerae ENT: external ear and nose normal, oropharynx normal Neck: normal visual inspection, trachea midline, no thyromegaly Respiratory: normal respiratory effort, lungs clear to auscultation, no wheeze, rales, rhonchi. No accessory muscle use Cardiovascular: regular rate, rhythm, no murmur, normal peripheral pulses, no BLE edema. Vessels: no JVD Chest: normal inspection of chest Abdomen/GI: normal bowel sounds, soft, nontender, no hepatosplenomegaly Extremities/Musculoskeletal: no cyanosis or clubbing, extremities motor strength 5/5 Neurologic: PERRL, EOMI, accommodation nl, no face palsy, no dysarthria, CN's II-XI intact bilaterally and moves all extremities Psychiatric: A+Ox3 Skin: no rashes, normal color, warm/dry Results & Data Results & Data ([facility]) Vital Signs (Past 12 Hours) Vital Signs Temp Pulse Pulse Resp BP Pulse Ox 09/02/21 16:49 60 14 97 09/02/21 16:44 37 C 61 15 163/67 H 97 09/02/21 16:43 95 Laboratory Results Short CBC 09/02/21 Range/Units 17:00 WBC 6.39 (4.8-10.8) K/uL Hgb 11.8 L (12.0-16.0) g/dL Hct 35.5 L (37-47) % Plt Count 202 (130-400) K/uL BMP 09/02/21 17:00 Sodium 140 Potassium 4.2 Chloride 107 Carbon Dioxide 27 BUN 23 H Creatinine 1.09 Glucose 141 H Calcium 9.7 Cardiac Enzymes 09/02/21 Range/Units 17:00 Troponin I < 0.015 (0-0.045) ng/ml Liver Function 09/02/21 Range/Units 17:00 Total Bilirubin 0.4 (0.2-1) mg/dl AST 68 H (15-37) U/L ALT 38 (12-78) Alkaline Phosphatase 80 (45-117) U/L Albumin 3.5 (3.4-5.0) gm/dl Diagnostic Findings Chest X-Ray 09/02/21 16:34 XR chest 1V portable CLINICAL HISTORY: Atypical chest pain. COMPARISON STUDY: Chest radiograph April 08, 2018. FINDINGS: Dual lead left subclavian pacer is in place. Cardiomediastinal silhouette is stable. Azygos fissure is incidentally noted. No evidence for pulmonary edema. There is no consolidation to suggest pneumonia. The appearance of the chest is unchanged. IMPRESSION: No acute cardiopulmonary findings. No change in appearance of the chest. ACT 112: Negative or not required by law. Electronically signed by: Mayur Johnson M.D. 09/02/2021 5:[address] 09/02/21 16:56 CT OF THE HEAD WITHOUT CONTRAST CLINICAL HISTORY: head injury on coumadin eval for bleed COMPARISON STUDY: Head CT April 08, 2016. CT DOSE: 690.05 mGycm TECHNIQUE: Helical axial images of the head were obtained without IV contrast. Automated exposure control was utilized for the study. A dose lowering technique was utilized adhering to the principles of ALARA. FINDINGS: No acute intracranial hemorrhage, midline shift or mass effect is present. Mild white matter hypodensity suggests small vessel disease. The ventricular system is unremarkable. The basal cisterns are patent. No extra- axial collections are present. There are no findings to suggest acute dural sinus thrombosis or acute territorial infarct. No significant calvarial abnormalities are present. Visualized portions of the sinuses and mastoid air cells are clear. IMPRESSION: 1. No acute intracranial findings. 2. No calvarial fracture. ACT 112: Negative or not required by law. Electronically signed by: Mayur Johnson M.D. 09/02/2021 6:10 PM ECG Additional Comments: atrial- paced rhythm Code Status & VTE Plan VTE Prophylaxis Plan VTE Prophylaxis will be ordered: Yes
[2021-09-02] MEDS ORDERED: WARFARIN SOD 5 MG TAB PO ONE (20:15)
[2021-09-02] MEDS ORDERED: ACETAMINOPHEN 325 MG TAB PO PRN (21:16)
[2021-09-02] MEDS ORDERED: GLUCAGON FOR INJ 1 MG VIAL SQ PRN (21:16)
[2021-09-02] MEDS ORDERED: POLYETHYLENE (MIRALAX) 17 GM PACK PO PRN (21:16)
[2021-09-02] MEDS ORDERED: GLUCOSE 10 TABS/TUBE PO PRN (21:16)
[2021-09-02] MEDS ORDERED: ONDANSETRON INJ 2 MG/ML 2 ML VIAL IV PRN (21:16)
[2021-09-02] MEDS ORDERED: DEXTROSE 50% 50 ML SYRINGE IV PRN (21:16)
[2021-09-02] MEDS ORDERED: GLUCOSE 40% GEL 15 GM TUBE PO PRN (21:16)
[2021-09-02] MEDS ORDERED: CARBOHYDRATES FOR HYPOGLYCEMIA PO PRN (21:16)
[2021-09-03] MEDS: NITROGLYCERIN 2% OINTMENT 30GM TUBE EXT SCH ×4 (00:41→18:05)
[2021-09-03] MEDS: LATANOPROST 0.005% OP SOLN 2.5 ML BTL OPB SCH ×2 (00:43→20:56)
[2021-09-03] MEDS: INSULIN ASPART PER UNIT SC SCH ×5 (00:45→20:54)
[2021-09-03 07:13] LABS: Hematocrit (blood only) 32.7 % (37-47); Hemoglobin 10.7 g/dL (12.0-16.0); Mean Corpuscular Hemoglobin 29.8 pg (25-34); Mean Corpuscular Hgb Conc 32.7 g/dL (32-36); Mean Corpuscular Volume 91.1 fL (80-100); Platelet Count 159 K/uL (130-400); RDW Coefficient of Variation 13.5 % (11.5-14.5); RDW Standard Deviation 45.1 fL (36.4-46.3); Red Blood Count 3.59 M/uL (4.2-5.4); White Blood Count 5.05 K/uL (4.8-10.8)
[2021-09-03 07:28] LABS: INR 1.6 (0.9-1.1)
[2021-09-03 07:44] LABS: BUN Creatinine Ratio 20.7 (10-20); Blood Urea Nitrogen 19 mg/dl (7-18); Calcium 9.1 mg/dl (8.5-10.1); Carbon Dioxide 28 mmol/L (21-32); Chloride 110 mmol/L (98-107); Creatinine Clr Calc Pharmacy 41.6 ml/min; Est GFR (Non-African American) 55.2 ml/min; Glucose 139 mg/dl (70-99); Potassium 4.2 mmol/L (3.5-5.1); Sodium 141 mmol/L (136-145)
[2021-09-03 07:50] LABS: Chol HDL Ratio 3; Cholesterol 179 mg/dl (0-200); HDL Cholesterol 59 mg/dl; LDL Cholesterol Calculated 96 mg/dl; Triglycerides 120 mg/dl (0-150); Troponin I < 0.015 ng/ml (0-0.045); VLDL Cholesterol 24 mg/dl
[2021-09-03] MEDS: METOPROLOL SUCC 25MG EXT REL TAB PO SCH (08:49)
[2021-09-03] MEDS: TIMOLOL GFS 0.5% OPH SOLN 74 DROPS/5 ML BTL OPB SCH ×2 (08:49→20:55)
[2021-09-03] MEDS: LOSARTAN POTASSIUM 50 MG TAB PO SCH (08:51)
[2021-09-03] MEDS: CEFDINIR 300 MG CAP PO SCH (08:51)
[2021-09-03] MEDS ORDERED: SITagliptin PHOSPHATE 25 MG TAB PO SCH (09:00)
--- NOTE | 2021-09-03 10:34 | Cardiology Consultation ---
Date of Consultation September 03, 2021 Assessment & Plan (1) Chest pain at rest: (2) Hypertension, uncontrolled: (3) PAF (paroxysmal atrial fibrillation): (4) Tachycardia-bradycardia syndrome: (5) Cardiac pacemaker in situ: 89-year-old female admitted with atypical chest discomfort at rest. EKGs demonstrate atrial paced rhythm with prolonged AV conduction, chronic left bundle branch block. Troponin I negative, less than 0.015, x3. Resting echocardiography reveals preserved LV systolic function, normal left ventricular wall motion. Pacemaker interrogation is pending. Discomfort appears multifactorial in etiology - a GI component is felt to be likely noting past history as well as description of symptoms. There is also definitely a musculoskeletal component noting tenderness on palpation. Uncontrolled hypertension may be contributing. Recommend conservative cardiac management at this time. Amlodipine 5 mg/day will be added for additional blood pressure control. Consider further GI evaluation/intervention. Supervising Physician Co-Signing Physician Notes Patient was seen and examined, chart, medications and telemetry reviewed. Patient presents with symptoms as noted above atypical for coronary etiology with no evidence of myocardial injury or ischemia by troponin despite extended episode. Patient with extensive history of GI issues as well as possible mild dysphagia. Patient was hypertensive possibly contributing. Plan as above we will add calcium channel jackelin to hopefully aid in blood pressure and possible symptoms if blood pressure remains persistently elevated would add oral nitrates rather than increase amlodipine History of Present Illness Reason for Consultation: Chest pain Requesting Physician: Matty Attending Physician: Piotr History of Present Illness Mrs. Genet Bee is a very pleasant 89-year-old female who is being seen at the request of Nena Starr and Dr. Saldaña. Reason for consultation is chest discomfort. Outpatient buckle sorter is Dr. Geoff Branham. " I just got an awful pain, like you would get with a gallbladder attack but I do not have a gallbladder anymore." + Similar symptoms prior to cholecystectomy. Nonradiating epigastric/lower rib cage discomfort occurring at rest without associated symptoms. Blood pressure was elevated in the ambulance and has remained uncontrolled. Notes not feeling hungry, without an appetite, down 10 to 12 pounds over the last year. She describes trouble swallowing liquids. Notes epigastric discomforted may have been aggravated during and after resting echocardiography. Concerned regarding cardiac etiology as discomfort was aided by sublingual nitroglycerin spray in the ambulance. EKG on presentation revealed an atrial paced rhythm with prolonged AV conduction, chronic left bundle branch block. EKG this morning, September 03, 2021 revealed an atrial paced rhythm with prolonged AV conduction, chronic left bundle branch block. Troponin I negative x3, less than 0.015. Chest x-ray on presentation revealed no acute cardiopulmonary findings. September 03, 2021 Resting Echocardiogram Interpretation Summary ([facility], Dr. Branham): Normal size left ventricle. Moderate concentric LVH. Normal LV wall motion. Ejection fraction 60 to 65%. Grade 1 diastolic dysfunction. Mild aortic valve sclerosis, without significant stenosis. Mild to moderate mitral regurgitation. Mild tricuspid regurgitation. Doppler findings do not suggest pulmonary hypertension. Allergies Allergy/AdvReac Type Severity Reaction Status Date / Time adhesive AdvReac Unknown "it Verified 09/02/21 17:22 festers and gets sore" bacitracin AdvReac Unknown states "if Verified 09/02/21 17:22 I use it it won't heal" lisinopril AdvReac Unknown Cough Verified 09/02/21 17:22 neomycin AdvReac Unknown states "if Verified 09/02/21 17:22 I use it it won't heal" polymyxin B AdvReac Unknown states "if Verified 09/02/21 17:22 I use it it won't heal" Home Medications Medication Instructions Recorded Confirmed Type timolol maleate 0.25 % eye drops 1 drp OPB BID ml 04/10/19 09/02/21 History warfarin 5 mg tablet 5 mg PO QPM tab 04/10/19 09/02/21 History cefdinir 300 mg capsule 300 mg PO DAILY 09/02/21 09/02/21 History latanoprost 0.005 % eye drops 1 drp OPB HS 09/02/21 09/02/21 History losartan 100 mg tablet 100 mg PO DAILY 09/02/21 09/02/21 History metformin 500 mg tablet 500 mg PO BIDM 09/02/21 09/02/21 History metoprolol succinate 25 mg 25 mg PO DAILY 09/02/21 09/02/21 History tablet,extended release 24 hr sitagliptin 100 mg tablet (Januvia) 50 mg PO DAILY 09/02/21 09/02/21 History Patient History Medical History Chronic a-fib DM type 2 (diabetes mellitus, type 2) Hepatic fibrosis HLD (hyperlipidemia) HTN (hypertension) Neuropathy Pacemaker Recurrent cholangitis Tachycardia-bradycardia syndrome Surgical History 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, felt to be due to chronic cholangitis " History of hysterectomy Pacemaker S/P cholecystectomy Family History Other Heart disease Social History Smoking Status: Never smoker Hx Alcohol Use: No Hx Substance Use: No Preferred Language: Chinese Communication Ability: Effective Placement Specialist Required: No Beliefs That Will Affect Care: None Current Living Situation: Spouse Current Living Situation Comment: Lives with Jonnathan Other Information That Helps Us Care for You: No Feels Safe at Home: Yes Safety Concerns: Feels Safe At This Time Assistive Devices: Glasses and Walker Review of Systems Review of Systems: No exertional chest pain. No tachypalpitations. No unusual shortness of breath. No cough, chest congestion, orthopnea, PND, or edema. No headaches. No dizziness, near syncope, or syncope. No fevers. No chills. No night sweats. No epistaxis, hemoptysis, melena, hematochezia, or hematuria. No reflux or indigestion. No nausea, vomiting, or diarrhea. No change in bowels. + Mechanical fall in the tub a few days ago. Complete review of systems is otherwise as stated above, negative, or noncontributory. Physical Exam Physical Exam: General: A&Ox3. NAD. HENT: Normocephalic. Atraumatic. Eyes: PER. Conjunctiva pink, sclera clear. Neck: No carotid bruits. No JVD. No HJR. Heart: RRR. Soft systolic murmur at the lower left sternal border. No diastolic murmur. No rub. PMI is nondisplaced. Chest: + xiphoid process tenderness. Lungs: Clear to auscultation. Abdomen: +BS. Soft. + Epigastric tenderness. No masses or organomegaly. Extremities: No clubbing, cyanosis, or edema. Limited neurological examination is without focal deficits. Pulses: radial=2/4, posterior tibial=1/4. Results & Data ([facility]) Vital Signs (Past 12 Hours) Vital Signs Temp Pulse Resp BP Pulse Ox 09/03/21 08:50 63 15 184/82 H 96 09/03/21 04:26 36.7 C 62 20 164/50 H 96 09/03/21 00:39 81 162/55 H 09/02/21 23:29 71 159/58 H 97 09/02/21 22:37 76 16 156/80 H 95 Laboratory Results Laboratory Results - last 24 hr 09/02/21 09/02/21 09/02/21 17:00 17:00 17:00 WBC 6.39 RBC 3.89 L Hgb 11.8 L Hct 35.5 L MCV 91.3 MCH 30.3 MCHC 33.2 RDW Std Deviation 45.8 RDW Coeff of Steph 13.9 Plt Count 202 MPV 10.8 H Immature Gran % (Auto) 0.0 Neut % (Auto) 46.5 Lymph % (Auto) 43.3 [place] % (Auto) 8.3 Eos % (Auto) 1.7 Baso % (Auto) 0.2 Neut # (Auto) 2.97 Lymph # (Auto) 2.77 [place] # (Auto) 0.53 Eos # (Auto) 0.11 Baso # (Auto) 0.01 Immature Gran # (Auto) 0.00 PT 15.4 H INR 1.6 H APTT 30.5 PTT Ratio 1.2 Sodium 140 Potassium 4.2 Chloride 107 Carbon Dioxide 27 Anion Gap 6.0 BUN 23 H Creatinine 1.09 Est Cr Clr Drug Dosing Not Reportable Est GFR ( Amer) 52.1 Est GFR (Non-Af Amer) 45.0 BUN/Creatinine Ratio 20.7 H Glucose 141 H POC Glucose Calcium 9.7 Total Bilirubin 0.4 AST 68 H ALT 38 Alkaline Phosphatase 80 Troponin I < 0.015 Total Protein 7.7 Albumin 3.5 Globulin 4.2 H Albumin/Globulin Ratio 0.8 L Triglycerides Cholesterol LDL Cholesterol, Calc VLDL Cholesterol, Calc HDL Cholesterol Cholesterol/HDL Ratio Lipase 385 SARS-CoV-2, RNA, NAAT 09/02/21 09/02/21 09/02/21 22:28 22:57 Unknown WBC RBC Hgb Hct MCV MCH MCHC RDW Std Deviation RDW Coeff of Steph Plt Count MPV Immature Gran % (Auto) Neut % (Auto) Lymph % (Auto) [place] % (Auto) Eos % (Auto) Baso % (Auto) Neut # (Auto) Lymph # (Auto) [place] # (Auto) Eos # (Auto) Baso # (Auto) Immature Gran # (Auto) PT INR APTT PTT Ratio Sodium Potassium Chloride Carbon Dioxide Anion Gap BUN Creatinine Est Cr Clr Drug Dosing Est GFR ( Amer) Est GFR (Non-Af Amer) BUN/Creatinine Ratio Glucose POC Glucose 216 H Calcium Total Bilirubin AST ALT Alkaline Phosphatase Troponin I < 0.015 Total Protein Albumin Globulin Albumin/Globulin Ratio Triglycerides Cholesterol LDL Cholesterol, Calc VLDL Cholesterol, Calc HDL Cholesterol Cholesterol/HDL Ratio Lipase SARS-CoV-2, RNA, NAAT NEGATIVE 09/03/21 09/03/21 09/03/21 00:42 04:52 06:58 WBC 5.05 RBC 3.59 L Hgb 10.7 L Hct 32.7 L MCV 91.1 MCH 29.8 MCHC 32.7 RDW Std Deviation 45.1 RDW Coeff of Steph 13.5 Plt Count 159 MPV 10.0 Immature Gran % (Auto) Neut % (Auto) Lymph % (Auto) [place] % (Auto) Eos % (Auto) Baso % (Auto) Neut # (Auto) Lymph # (Auto) [place] # (Auto) Eos # (Auto) Baso # (Auto) Immature Gran # (Auto) PT INR APTT PTT Ratio Sodium Potassium Chloride Carbon Dioxide Anion Gap BUN Creatinine Est Cr Clr Drug Dosing Est GFR ( Amer) Est GFR (Non-Af Amer) BUN/Creatinine Ratio Glucose POC Glucose 150 H 133 H Calcium Total Bilirubin AST ALT Alkaline Phosphatase Troponin I Total Protein Albumin Globulin Albumin/Globulin Ratio Triglycerides Cholesterol LDL Cholesterol, Calc VLDL Cholesterol, Calc HDL Cholesterol Cholesterol/HDL Ratio Lipase SARS-CoV-2, RNA, NAAT 09/03/21 09/03/21 06:58 06:58 WBC RBC Hgb Hct MCV MCH MCHC RDW Std Deviation RDW Coeff of Steph Plt Count MPV Immature Gran % (Auto) Neut % (Auto) Lymph % (Auto) [place] % (Auto) Eos % (Auto) Baso % (Auto) Neut # (Auto) Lymph # (Auto) [place] # (Auto) Eos # (Auto) Baso # (Auto) Immature Gran # (Auto) PT 16.0 H INR 1.6 H APTT PTT Ratio Sodium 141 Potassium 4.2 Chloride 110 H Carbon Dioxide 28 Anion Gap 3.0 BUN 19 H Creatinine 0.92 Est Cr Clr Drug Dosing 41.6 Est GFR ( Amer) 64.0 Est GFR (Non-Af Amer) 55.2 BUN/Creatinine Ratio 20.7 H Glucose 139 H POC Glucose Calcium 9.1 Total Bilirubin AST ALT Alkaline Phosphatase Troponin I < 0.015 Total Protein Albumin Globulin Albumin/Globulin Ratio Triglycerides 120 Cholesterol 179 LDL Cholesterol, Calc 96 VLDL Cholesterol, Calc 24 HDL Cholesterol 59 Cholesterol/HDL Ratio 3 Lipase SARS-CoV-2, RNA, NAAT
[2021-09-03] MEDS: amLODIPine BESYLATE 5 MG TAB PO SCH (11:14)
[2021-09-03] MEDS ORDERED: WARFARIN SOD 5 MG TAB PO SCH (16:00)
[2021-09-03] MEDS ORDERED: Nursing to Pharmacy Communication SCH (17:15)
--- NOTE | 2021-09-03 17:44 | Hospitalist Progress Note ---
Date of Service September 03, 2021 Assessment & Plan (1) Acute chest pain: Plan: This is an 89yo F with a PMH of DM II, history of tachy liza syndrome s/p pacemaker placement, LBBB, CKD III, Klatskin's tumor, recurrent cholangitis, and other medical problems listed below who presents with chest discomfort since 3:30pm this afternoon that has since resolved with ntg paste. Sudden onset of substernal CP at rest earlier, relieved with ntg. No MSK component, ? possible acid reflux is contributing Initial troponin and subsequent troponins are negative for any ACS CXR with no acute cardiopulmonary findings. No change in appearance of the chest ECG with atrial-paced rhythm H/o normal stress echo in 2016 Continue ntg paste, resting echo in AM, trend troponin, pacer interrogation, fasting lipids in AM Appreciate cardiology input and recommendation Remains stable to be discharged Epigastric discomfort She has had symptoms like that her cough for gallbladder disease Has not been eating any antacid and/or PPI Likely has peptic ulcer disease Will start PPI (2) DM type 2 (diabetes mellitus, type 2): Plan: A1c 7.7 in Jun 2021 Hold home agents SSI while in-patient BSG AC HS or Q6H while NPO (3) HTN (hypertension): Plan: Hypertensive urgency Initial blood pressure was noted to be very high at systolic more than 200 Likely secondary to anxiety and/or pain Blood pressure has been coming down (4) Recurrent cholangitis: Plan: History of benign tumor of extrahepatic bile ducts, s/p removal at [facility] Continue daily cefdinir (5) Atrial fibrillation: Plan: Paced rhythm on ECG. INR subtherapeutic at 1.6, given evening dose of coumadin. 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 DVT Ppx: coumadin Code status: DNR PCP: Dasia Dispo: Observation PCU Likely discharge tomorrow Admission and Anticipated Discharge Date Admission Date: September 02, 2021 Subjective 09/03/2021 The patient was seen and examined in the emergency room in the [facility] area She was admitted with chest pain which has resolved She complained to have pain in the epigastrium and did not have any other associated symptoms but is worried about the heart Her very high blood pressure has been improving Review of Systems Review of Systems: All systems reviewed and are unremarkable except as noted below Cardiovascular: Additional Comments: No chest pain and/or palpitation Physical Exam Physical Exam: Lying in bed comfortably Constitutional: well developed, well nourished and average body habitus; not ill appearing Eyes: PERRL, conjunctivae normal, anicteric sclerae ENMT: external ear and nose normal, oropharynx normal Neck: trachea midline, no thyromegaly Respiratory: no respiratory distress Auscultation: lungs clear to auscultation bilaterally; no crackles Cardiovascular: Rate/Rhythm: regular rate and regular rhythm; not tachycardic Heart Sounds: normal S1 and normal S2; no murmur Extremities: no edema Gastrointestinal (Abdomen): Inspection/Auscultation: normal bowel sounds; abdomen not distended Percussion/Palpation: abdomen soft; abdomen nontender Musculoskeletal: No acute arthritis in any joint Neurologic: Alert, awake and oriented x3. No focal sensory or no motor deficit appreciated Results & Data Results & Data ([facility]) Vital Signs (Past 12 Hours) Vital Signs Temp Pulse Resp BP BP Pulse Ox 09/03/21 17:10 37.0 C 72 20 150/73 H 96 09/03/21 16:00 36.8 C 16 161/65 H 95 09/03/21 12:00 36.6 C 61 16 189/78 H 96 09/03/21 08:50 63 15 184/82 H 96 Laboratory Results Short CBC 09/03/21 Range/Units 06:58 WBC 5.05 (4.8-10.8) K/uL Hgb 10.7 L (12.0-16.0) g/dL Hct 32.7 L (37-47) % Plt Count 159 (130-400) K/uL [facility] 09/03/21 06:58 Sodium 141 Potassium 4.2 Chloride 110 H Carbon Dioxide 28 BUN 19 H Creatinine 0.92 Glucose 139 H Calcium 9.1 Cardiac Enzymes 09/02/21 09/02/21 09/03/21 Range/Units 17:00 22:57 06:58 Troponin I < 0.015 < 0.015 < 0.015 (0-0.045) ng/ml Liver Function 09/02/21 Range/Units 17:00 Total Bilirubin 0.4 (0.2-1) mg/dl Alkaline Phosphatase 80 (45-117) U/L Medications Administered Current Inpatient Medications Acetaminophen (Acetaminophen 325 Mg Tab) 650 mg PO Q4H PRN PRN Reason: Pain or Fever Stop: 10/02/21 21:15 Amlodipine Besylate (Amlodipine Besylate 5 Mg Tab) 5 mg PO QAM [facility] Stop: 10/03/21 10:59 Last Admin: 09/03/21 11:14 Dose: 5 mg Documented by: Cefdinir (Cefdinir 300 Mg Cap) 300 mg PO DAILY [facility] Stop: 10/03/21 08:59 Last Admin: 09/03/21 08:51 Dose: 300 mg Documented by: Dextrose (Dextrose 50% 50 Ml Syringe) 25 - 50 ml IV UD PRN; Protocol PRN Reason: Hypoglycemia Protocol Stop: 10/02/21 21:15 Glucagon (Glucagon For Inj 1 Mg Vial) 1 mg SQ UD PRN; Protocol PRN Reason: Hypoglycemia Protocol Stop: 10/02/21 21:15 Glucose (Glucose 10 Tabs/Tube) 4 - 8 tabs PO UD PRN; Protocol PRN Reason: Hypoglycemia Protocol Stop: 10/02/21 21:15 Glucose (Glucose 40% Gel 15 Gm Tube) 15 - 30 gm PO UD PRN; Protocol PRN Reason: Hypoglycemia Protocol Stop: 10/02/21 21:15 Insulin Aspart (Insulin Aspart Per Unit) 0 units SC ACHS [facility] Stop: 10/03/21 00:00 Latanoprost (Latanoprost 0.005% Op Soln 2.5 Ml Btl) 1 drops OPB HS [facility] Stop: 10/02/21 21:15 Last Admin: 09/03/21 00:43 Dose: 1 drops Documented by: Losartan Potassium (Losartan Potassium 50 Mg Tab) 100 mg PO DAILY [facility] Stop: 10/03/21 08:59 Last Admin: 09/03/21 08:51 Dose: 100 mg Documented by: Metoprolol Succinate (Metoprolol Succ 25mg Ext Rel Tab) 25 mg PO DAILY [facility] Stop: 10/03/21 08:59 Last Admin: 09/03/21 08:49 Dose: 25 mg Documented by: Miscellaneous (Carbohydrates For Hypoglycemia ) 15 - 30 gm PO UD PRN PRN Reason: Hypoglycemia Protocol Stop: 10/02/21 21:15 Nitroglycerin (Nitroglycerin 2% Ointment 30gm Tube) 0.5 inch EXT Q6H [facility] Stop: 10/03/21 00:00 Last Admin: 09/03/21 12:03 Dose: 0.5 inch Documented by: Ondansetron HCl (Ondansetron Inj 2 Mg/Ml 2 Ml Vial) 4 mg IV Q6H PRN PRN Reason: Nausea Stop: 10/02/21 21:15 Polyethylene Glycol (Polyethylene (Miralax) 17 Gm Pack) 17 gm PO DAILY PRN PRN Reason: Constipation Stop: 10/02/21 21:15 Sitagliptin Phosphate (Sitagliptin Phosphate 25 Mg Tab) 50 mg PO DAILY [facility] Stop: 10/03/21 08:59 Timolol Maleate (Timolol Gfs 0.5% Oph Soln 74 Drops/5 Ml Btl) 1 drops OPB BID [facility] Stop: 10/03/21 08:59 Last Admin: 09/03/21 08:49 Dose: 1 drops Documented by: Warfarin Sodium (Warfarin Sod 5 Mg Tab) 5 mg PO DAILY@1600 [facility] Stop: 10/03/21 15:59 Last Admin: 09/03/21 16:40 Dose: 5 mg Documented by:
[2021-09-03] MEDS: PANTOprazole 40 MG TAB PO SCH (18:23)
[2021-09-04] MEDS: NITROGLYCERIN 2% OINTMENT 30GM TUBE EXT SCH ×2 (00:03→05:06)
--- NOTE | 2021-09-04 06:48 | Electrocardiogram Report ---
Test Reason : Blood Pressure : / mmHG Vent. Rate : 065 BPM Atrial Rate : 065 BPM P-R Int : 240 ms QRS Dur : 122 ms QT Int : 408 ms P-R-T Axes : 080 001 073 degrees QTc Int : 424 ms Atrial-paced rhythm with prolonged AV conduction Left bundle branch block Abnormal ECG When compared with ECG of 08-APR-2018 02:01, Atrial pacing has replaced atrial fibrillation Vent. rate has decreased BY 89 BPM Confirmed by Alex Lance ([id number]) on 09/04/2021 6:48:07 AM Referred By: REFERRED SELF Confirmed By:Alex Lance
[2021-09-04 08:12] LABS: INR 1.7 (0.9-1.1); Prothrombin Time 16.8 Seconds (9.0-12.0)
[2021-09-04] MEDS: amLODIPine BESYLATE 5 MG TAB PO SCH (08:29)
[2021-09-04] MEDS: METOPROLOL SUCC 25MG EXT REL TAB PO SCH (08:29)
[2021-09-04] MEDS: TIMOLOL GFS 0.5% OPH SOLN 74 DROPS/5 ML BTL OPB SCH (08:29)
[2021-09-04] MEDS: CEFDINIR 300 MG CAP PO SCH (08:29)
[2021-09-04] MEDS: LOSARTAN POTASSIUM 50 MG TAB PO SCH (08:29)
[2021-09-04] MEDS: PANTOprazole 40 MG TAB PO SCH (08:29)
[2021-09-04] MEDS: INSULIN ASPART PER UNIT SC SCH ×2 (08:38→11:56)
[2021-09-04 08:43] LABS: BUN Creatinine Ratio 18.8 (10-20); Calcium 8.7 mg/dl (8.5-10.1); Est GFR (African American) 45.9 ml/min; Est GFR (Non-African American) 39.6 ml/min; Magnesium 1.8 mg/dl (1.8-2.4)
[2021-09-04] MEDS ORDERED: SODIUM CHLORIDE 0.9% 1000ML 1,000 ML IV SCH (09:30)
--- NOTE | 2021-09-04 10:03 | Cardiology Progress Note ---
Date of Service September 04, 2021 Assessment & Plan (1) Chest pain at rest: (2) Hypertension, uncontrolled: (3) PAF (paroxysmal atrial fibrillation): (4) Tachycardia-bradycardia syndrome: (5) Cardiac pacemaker in situ: Plan: 89-year-old female admitted with atypical chest discomfort. No evidence of myocardial injury or ischemia observed. EKGs demonstrated an atrial paced rhythm with prolonged AV conduction, chronic left bundle branch block. Troponin I negative, less than 0.015, x3. Resting echocardiography revealed preserved LV systolic function, normal left ventricular wall motion. Suspect GI etiology, possibly in part due to uncontrolled hypertension. Blood pressures have significantly improved following utilization of Nitropaste as well as the addition of amlodipine. Recommend switching Nitropaste to isosorbide, 60 mg/day, continuing amlodipine at 5 mg/day, and increasing metoprolol succinate to 25 mg twice per day. Proton pump inhibitor therapy added this admission; she is aware of the need for further evaluation especially if symptoms persist. Admission and Anticipated Discharge Date Admission Date: September 02, 2021 Supervising Physician Co-Signing Physician Notes Patient seen and examined, chart, medications, telemetry reviewed. Evaluation and therapies as above. Current complaints appear noncardiac in nature but possible opportunity to adjust medical therapies for optimization of medical regimen. Blood pressure is much better controlled. No further cardiac recommendations. Patient has follow-up with cardiology 11/20/2021, PCP on 09/08/2021 Subjective Patient is seen and examined. Chart, medications, and telemetry reviewed. Blood pressure readings have significantly improved. No further pain/discomfort. Continuous telemetry monitoring reveals sinus, atrial paced rhythm, one 4 beat run of ventricular tachycardia noted at 2330 Review of Systems Review of Systems: No headaches. No chest pain. No palpitations. No new or worsening shortness of breath. No fluid retention. No dizziness or near syncope. No subjective fevers or chills. Chronic stable mild arthritic complaints. Complete review of systems is otherwise as stated above, negative, or noncontributory. Physical Exam Physical Exam: General: A&Ox3. NAD. HENT: Normocephalic. Atraumatic. Eyes: PER. Conjunctiva pink, sclera clear. Neck: No carotid bruits. No JVD. No HJR. Heart: RRR. Soft systolic murmur at the lower left sternal border. No diastolic murmur. No rub. PMI is nondisplaced. Lungs: Clear to auscultation. Abdomen: +BS. Soft. No masses or organomegaly. Extremities: No clubbing, cyanosis, or edema. Limited neurological examination is without focal deficits. Pulses: radial=2/4, posterior tibial=1/4. Results & Data ([facility]) Vital Signs (Past 12 Hours) Vital Signs Temp Pulse Pulse Resp BP BP Pulse Ox 09/04/21 09:00 65 09/04/21 08:28 36.7 C 65 20 134/71 98 09/04/21 04:39 37.1 C 64 18 133/71 97 09/03/21 23:00 37 C 64 16 108/65 93 Laboratory Results Laboratory Results - last 24 hr 09/03/21 09/03/21 09/03/21 11:27 17:09 20:02 PT INR Sodium Potassium Chloride Carbon Dioxide Anion Gap BUN Creatinine Est Cr Clr Drug Dosing Est GFR ( Amer) Est GFR (Non-Af Amer) BUN/Creatinine Ratio Glucose POC Glucose 227 H 129 H 114 H Calcium Magnesium 09/04/21 09/04/21 09/04/21 07:29 07:39 07:39 PT 16.8 H INR 1.7 H Sodium 141 Potassium 4.0 Chloride 110 H Carbon Dioxide 27 Anion Gap 4.0 BUN 23 H Creatinine 1.21 H Est Cr Clr Drug Dosing 31.0 Est GFR ( Amer) 45.9 Est GFR (Non-Af Amer) 39.6 BUN/Creatinine Ratio 18.8 Glucose 156 H POC Glucose 150 H Calcium 8.7 Magnesium 1.8
[2021-09-04] MEDS ORDERED: ISOSORBIDE MONO EXTENDED REL 60 MG TABCR PO SCH (10:15)
--- NOTE | 2021-09-04 10:51 | Electrocardiogram Report ---
Test Reason : Blood Pressure : / mmHG Vent. Rate : 062 BPM Atrial Rate : 062 BPM P-R Int : 246 ms QRS Dur : 120 ms QT Int : 428 ms P-R-T Axes : 093 019 058 degrees QTc Int : 434 ms Atrial-paced rhythm with prolonged AV conduction Left bundle branch block Abnormal ECG When compared with ECG of 02-SEP-2021 16:38, No significant change Confirmed by Alex Lance ([id number]) on 09/04/2021 10:51:08 AM Referred By: REFERRED SELF Confirmed By:Alex Lance
--- NOTE | 2021-09-04 13:37 | Hospitalist Progress Note ---
Date of Service September 04, 2021 Assessment & Plan (1) Acute chest pain: Plan: This is an 89yo F with a PMH of DM II, history of tachy liza syndrome s/p pacemaker placement, LBBB, CKD III, Klatskin's tumor, recurrent cholangitis, and other medical problems listed below who presents with chest discomfort since 3:30pm this afternoon that has since resolved with ntg paste. Sudden onset of substernal CP at rest earlier, relieved with ntg. No MSK component, ? possible acid reflux is contributing Initial troponin and subsequent troponins are negative for any ACS CXR with no acute cardiopulmonary findings. No change in appearance of the chest ECG with atrial-paced rhythm H/o normal stress echo in 2016 Continue ntg paste, resting echo in AM, trend troponin, pacer interrogation, fasting lipids in AM Appreciate cardiology input and recommendation Denies any more cardiac symptoms and epigastric discomfort is resolved Will be discharged home this afternoon Epigastric discomfort She has had symptoms like that her cough for gallbladder disease Has not been eating any antacid and/or PPI Likely has peptic ulcer disease Will start PPI-has been getting much better (2) DM type 2 (diabetes mellitus, type 2): Plan: A1c 7.7 in Jun 2021 Hold home agents SSI while in-patient BSG AC HS or Q6H while NPO (3) HTN (hypertension): Plan: Hypertensive urgency Initial blood pressure was noted to be very high at systolic more than 200 Likely secondary to anxiety and/or pain Blood pressure has been coming down Blood pressure seems on the lower side at 95/58 during my exam (4) Recurrent cholangitis: Plan: History of benign tumor of extrahepatic bile ducts, [place] [facility] Continue daily cefdinir (5) Atrial fibrillation: Plan: Paced rhythm on ECG. INR subtherapeutic at 1.6, given evening dose of coumadin. 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 DVT Ppx: coumadin Code status: DNR PCP: Dasia Dispo: Observation PCU Will be discharged today Admission and Anticipated Discharge Date Admission Date: September 02, 2021 Subjective 09/03/2021 The patient was seen and examined in the emergency room in the [facility] area She was admitted with chest pain which has resolved She complained to have pain in the epigastrium and did not have any other associated symptoms but is worried about the heart Her very high blood pressure has been improving 09/04/2021 The patient was seen and examined in telemetry unit She has been feeling much better and denies any more cardiac symptoms She has not been drinking enough fluid and looked dehydrated with slightly increasing renal function She has been trying to drink more Review of Systems Review of Systems: All systems reviewed and are unremarkable except as noted below Cardiovascular: Additional Comments: No chest pain and/or palpitation Physical Exam Physical Exam: Lying in bed comfortably Constitutional: well developed, well nourished and average body habitus; not ill appearing Eyes: PERRL, conjunctivae normal, anicteric sclerae ENMT: external ear and nose normal, oropharynx normal Neck: trachea midline, no thyromegaly Respiratory: no respiratory distress Auscultation: lungs clear to auscultation bilaterally; no crackles Cardiovascular: Rate/Rhythm: regular rate and regular rhythm; not tachycardic Heart Sounds: normal S1 and normal S2; no murmur Extremities: no edema Gastrointestinal (Abdomen): Inspection/Auscultation: normal bowel sounds; abdomen not distended Percussion/Palpation: abdomen soft; abdomen nontender Musculoskeletal: No acute arthritis in any joint Neurologic: Alert, awake and oriented x3. No focal sensory and motor deficit appreciated Lymphatic: no cervical or axillary lymphadenopathy Results & Data Results & Data ([facility]) Vital Signs (Past 12 Hours) Vital Signs Temp Pulse Pulse Resp BP Pulse Ox 09/04/21 11:28 36.9 C 66 18 95/58 L 97 09/04/21 09:00 65 09/04/21 08:28 36.7 C 65 20 134/71 98 09/04/21 04:39 37.1 C 64 18 133/71 97 Laboratory Results [facility] 09/04/21 07:39 Sodium 141 Potassium 4.0 Chloride 110 H Carbon Dioxide 27 BUN 23 H Creatinine 1.21 H Glucose 156 H Calcium 8.7 Medications Administered Current Inpatient Medications Acetaminophen (Acetaminophen 325 Mg Tab) 650 mg PO Q4H PRN PRN Reason: Pain or Fever Stop: 10/02/21 21:15 Amlodipine Besylate (Amlodipine Besylate 5 Mg Tab) 5 mg PO QAM [facility] Stop: 10/03/21 10:59 Last Admin: 09/04/21 08:29 Dose: 5 mg Documented by: Cefdinir (Cefdinir 300 Mg Cap) 300 mg PO DAILY [facility] Stop: 10/03/21 08:59 Last Admin: 09/04/21 08:29 Dose: 300 mg Documented by: Dextrose (Dextrose 50% 50 Ml Syringe) 25 - 50 ml IV UD PRN; Protocol PRN Reason: Hypoglycemia Protocol Stop: 10/02/21 21:15 Glucagon (Glucagon For Inj 1 Mg Vial) 1 mg SQ UD PRN; Protocol PRN Reason: Hypoglycemia Protocol Stop: 10/02/21 21:15 Glucose (Glucose 10 Tabs/Tube) 4 - 8 tabs PO UD PRN; Protocol PRN Reason: Hypoglycemia Protocol Stop: 10/02/21 21:15 Glucose (Glucose 40% Gel 15 Gm Tube) 15 - 30 gm PO UD PRN; Protocol PRN Reason: Hypoglycemia Protocol Stop: 10/02/21 21:15 Insulin Aspart (Insulin Aspart Per Unit) 0 units SC ACHS [facility] Stop: 10/03/21 00:00 Last Admin: 09/04/21 11:56 Dose: 4 units Documented by: Isosorbide Mononitrate (Isosorbide Osborne Extended Rel 60 Mg Tabcr) 60 mg PO QAM [facility] Stop: 10/04/21 10:14 Last Admin: 09/04/21 10:44 Dose: 60 mg Documented by: Latanoprost (Latanoprost 0.005% Op Soln 2.5 Ml Btl) 1 drops OPB HS [facility] Stop: 10/02/21 21:15 Last Admin: 09/03/21 20:56 Dose: 1 drops Documented by: Losartan Potassium (Losartan Potassium 50 Mg Tab) 100 mg PO DAILY [facility] Stop: 10/03/21 08:59 Last Admin: 09/04/21 08:29 Dose: 100 mg Documented by: Metoprolol Succinate (Metoprolol Succ 25mg Ext Rel Tab) 25 mg PO BID [facility] Stop: 10/04/21 20:59 Miscellaneous (Carbohydrates For Hypoglycemia ) 15 - 30 gm PO UD PRN PRN Reason: Hypoglycemia Protocol Stop: 10/02/21 21:15 Ondansetron HCl (Ondansetron Inj 2 Mg/Ml 2 Ml Vial) 4 mg IV Q6H PRN PRN Reason: Nausea Stop: 10/02/21 21:15 Pantoprazole Sodium (Pantoprazole 40 Mg Tab) 40 mg PO QAM [facility] Stop: 10/03/21 17:59 Last Admin: 09/04/21 08:29 Dose: 40 mg Documented by: Polyethylene Glycol (Polyethylene (Miralax) 17 Gm Pack) 17 gm PO DAILY PRN PRN Reason: Constipation Stop: 10/02/21 21:15 Last Admin: 09/03/21 18:27 Dose: 17 gm Documented by: Sitagliptin Phosphate (Sitagliptin Phosphate 25 Mg Tab) 50 mg PO DAILY [facility] Stop: 10/03/21 08:59 Timolol Maleate (Timolol Gfs 0.5% Oph Soln 74 Drops/5 Ml Btl) 1 drops OPB BID [facility] Stop: 10/03/21 08:59 Last Admin: 09/04/21 08:29 Dose: 1 drops Documented by: Warfarin Sodium (Warfarin Sod 5 Mg Tab) 5 mg PO DAILY@1600 [facility] Stop: 10/03/21 15:59 Last Admin: 09/03/21 16:40 Dose: 5 mg Documented by:
[2021-09-04] MEDS ORDERED: METOPROLOL SUCC 25MG EXT REL TAB PO SCH (21:00)
--- NOTE | 2021-09-05 09:03 | Discharge Summary ---
Date of Service September 05, 2021 Admission HPI Per Admitting Provider This is an 89yo F with a PMH of DM II, history of tachy liza syndrome s/p pacemaker placement, LBBB, CKD III, Klatskin's tumor, recurrent cholangitis and other medical problems listed below who presents with chest discomfort since 3:30pm this afternoon. Patient was resting when pain came on suddenly and central substernal and epigastric area. No radiation to jaw, arms or back. No associated diaphoresis, shortness of breath, nausea or vomiting. Pain was initially 7/10 but improved after receiving nitroglycerin in ambulance as well as aspirin. Has nitroglycerin paste in place in ED without any pain. Denies any fever, chills, headache, shortness of breath, nausea, vomiting, abdominal pain, dysuria, diarrhea or constipation. Denies chest pain similar to this in the past. Per chart review, patient with normal stress echo in 2016. Is on Coumadin with history of atrial fibrillation. Also had pacemaker replaced a few years ago due to tachybradycardia syndrome. Of note, states she slipped in her tub a few days ago and hit the side of her head. Denies any loss of consciousness. CT head without any evidence of acute abnormality or bleed. Admission Exam Per Admitting Provider Physical Exam: General Appearance:WD/WN, vitals as above, NAD, sitting up in bed, conversing easily Head: normocephalic, atraumatic Eyes:normal inspection, PERRL, conjunctivae normal, anicteric sclerae ENT: external ear and nose normal, oropharynx normal Neck: normal visual inspection, trachea midline, no thyromegaly Respiratory:normal respiratory effort, lungs clear to auscultation, no wheeze, rales, rhonchi. No accessory muscle use Cardiovascular: regular rate, rhythm, no murmur, normal peripheral pulses, no BLE edema. Vessels: no JVD Chest: normal inspection of chest Abdomen/GI: normal bowel sounds, soft, nontender, no hepatosplenomegaly Extremities/Musculoskeletal: no cyanosis or clubbing, extremities motor strength 5/5 Neurologic: PERRL, EOMI, accommodation nl, no face palsy, no dysarthria, CN's II-XI intact bilaterally and moves all extremities Psychiatric:A+Ox3 Skin: no rashes, normal color, warm/dry Principal Diagnosis Acute chest pain-no ACS, paroxysmal atrial fibrillation, uncontrolled hypertension, possible peptic ulcer disease Discharge Exam Lying in bed comfortably Constitutional well developed, well nourished and average body habitus; not ill appearing Eyes PERRL, conjunctivae normal, anicteric sclerae ENMT external ear and nose normal, oropharynx normal Neck trachea midline, no thyromegaly Respiratory no respiratory distress Auscultation: lungs clear to auscultation bilaterally; no crackles Cardiovascular Rate/Rhythm: regular rate and regular rhythm; not tachycardic Heart Sounds: normal S1 and normal S2; no murmur Extremities: no edema Gastrointestinal (Abdomen) Inspection/Auscultation: normal bowel sounds; abdomen not distended Percussion/Palpation: abdomen soft; abdomen nontender Lymphatic no cervical or axillary lymphadenopathy Discharge Data Allergies Allergy/AdvReac Type Severity Reaction Status Date / Time adhesive AdvReac Unknown "it Verified 09/02/21 17:22 festers and gets sore" bacitracin AdvReac Unknown states "if Verified 09/02/21 17:22 I use it it won't heal" lisinopril AdvReac Unknown Cough Verified 09/02/21 17:22 neomycin AdvReac Unknown states "if Verified 09/02/21 17:22 I use it it won't heal" polymyxin B AdvReac Unknown states "if Verified 09/02/21 17:22 I use it it won't heal" Consultations 09/02/21 18:47 ED Decision to Admit Stat 09/03/21 08:00 Consult Cardiology Routine Ordered Studies 09/02/21 16:56 CT head/brain wo con Stat Hospital Course (1) Acute chest pain: This is an 89yo F with a PMH of DM II, history of tachy liza syndrome s/p pacemaker placement, LBBB, CKD III, Klatskin's tumor, recurrent cholangitis, and other medical problems listed below who presents with chest discomfort since 3:30pm this afternoon that has since resolved with ntg paste. Sudden onset of substernal CP at rest earlier, relieved with ntg. No MSK component, ? possible acid reflux is contributing Initial troponin and subsequent troponins are negative for any ACS CXR with no acute cardiopulmonary findings. No change in appearance of the chest ECG with atrial-paced rhythm H/o normal stress echo in 2016 Continue ntg paste, resting echo in AM, trend troponin, pacer interrogation, fasting lipids in AM Appreciate cardiology input and recommendation Denies any more cardiac symptoms and epigastric discomfort is resolved Will be discharged home this afternoon Epigastric discomfort She has had symptoms like that her cough for gallbladder disease Has not been eating any antacid and/or PPI Likely has peptic ulcer disease Will start PPI-has been getting much better (2) DM type 2 (diabetes mellitus, type 2): A1c 7.7 in Jun 2021 Hold home agents SSI while in-patient BSG AC HS or Q6H while NPO (3) HTN (hypertension): Hypertensive urgency Initial blood pressure was noted to be very high at systolic more than 200 Likely secondary to anxiety and/or pain Blood pressure has been coming down Blood pressure seems on the lower side at 95/58 during my exam (4) Recurrent cholangitis: History of benign tumor of extrahepatic bile ducts, [place] [facility] [place] Continue daily cefdinir (5) Atrial fibrillation: Paced rhythm on ECG. INR subtherapeutic at 1.6, given evening dose of coumadin. Continue Toprol Rate remains controlled (6) Tachycardia-bradycardia syndrome: S/p pacemaker placement DVT Ppx: coumadin Code status: DNR PCP: Dasia Dispo: Observation PCU Will be discharged today Total Time Total Time Spent Total Time Spent (In Minutes): 35 minutes Discharge Plan Discharge Items Patient Disposition: Home - Self-Care Reason For Visit: CHEST & BACK PRESSURE Discharge Diagnosis: Acute chest pain-no ACS, paroxysmal atrial fibrillation, uncontrolled hypertension, possible peptic ulcer disease Condition on Discharge: Good Activity: Resume your previous activity Non-emergency contact: Primary Care Provider Call non-emergency contact if: you have any medication questions and your symptoms worsen Follow-up/Referrals: Brandee Forman MD [Primary Care Provider] - (Date & Time 09/08/2021 11:00 AM Provider Brandee Forman MD Department General Internal Medicine [facility] ) Diet: Heart Healthy Addtl Attending Provider Instructions: Please take precautions to avoid fall Try to drink more fluid as advised Take your medications as advised Please keep appointments with your healthcare providers Pending Studies at Discharge: No Stand-Alone Forms: My [facility], Smoking Cessation Medications and DC Order Prescriptions: New amlodipine [Norvasc] 5 mg Tablet 5 mg PO QAM 30 Days Qty: 30 RF: 0 isosorbide mononitrate 60 mg Tablet Extended Release 24 Hr 60 mg PO QAM 30 Days Qty: 30 RF: 0 pantoprazole 40 mg Tablet,Delayed Release (Dr/Ec) 40 mg PO QAM 30 Days Qty: 30 RF: 0 metoprolol succinate 25 mg Tablet Extended Release 24 Hr 25 mg PO BID 30 Days Qty: 60 RF: 0 Continued warfarin 5 mg tablet 5 mg PO QPM RF: 0 timolol maleate 0.25 % drops 1 drp OPB BID RF: 0 losartan 100 mg tablet 100 mg PO DAILY RF: 0 Januvia 100 mg tablet 50 mg PO DAILY RF: 0 metformin 500 mg tablet 500 mg PO BIDM RF: 0 latanoprost 0.005 % drops 1 drp OPB HS RF: 0 cefdinir 300 mg capsule 300 mg PO DAILY RF: 0 Discontinued metoprolol succinate 25 mg tablet extended release 24 hr 25 mg PO DAILY RF: 0 Discharge Orders: Discharge Order (Routine); Ordered 09/04/21 Ordered By: Jolie Gold/Other Patient Handouts: Protonix Oral Tablet 40 mg, Norvasc Oral Tablet 5 mg, Metoprolol 24 HR Extended Release Oral Tablet 25 mg, Imdur 24 HR Extended Release Oral Tablet 60 mg Admission Data Admit Date/Time: 09/02/21 19:09 Attending Provider: Jolie Saldaña Admit Provider: Oneida Spears Primary Care Provider: Brandee Forman Other Providers: Oneida Spears ; Geoff Branham Other Interventions: Discharge Summary Assessment (RN) Last Done: 09/04/21 14:20
== END 2021-09-04 15:14 | disposition home or self-care (01) ==
LOC: EDINP 16:21 → ED 16:21 → SUATTDRO 19:09 → EDINP 21:16 → 2S 09-03 17:04
DX: Z79.899 Other long term (current) drug therapy; R07.89 Other chest pain; R00.0 Tachycardia, unspecified; Z95.0 Presence of cardiac pacemaker; Z88.8 Allergy status to other drugs, medicaments and biological substances; Z79.01 Long term (current) use of anticoagulants; I11.9 Hypertensive heart disease without heart failure; E11.9 Type 2 diabetes mellitus without complications; Z79.84 Long term (current) use of oral hypoglycemic drugs; E78.5 Hyperlipidemia, unspecified; I48.0 Paroxysmal atrial fibrillation; I49.5 Sick sinus syndrome; Z20.822 Contact with and (suspected) exposure to COVID-19; K83.09 Other cholangitis